=== PATIENT | male | born 1955 | race Caucasian/White ===

== ENCOUNTER 2022-06-02 11:04 | Emergency (ER) | payer MEDICARE, OTHER ==
[~2022-06-02] VITALS: Ht 172.7 cm; Wt 78.9 kg
--- NOTE | 2022-06-02 11:21 | NUR ---
GABBY [id number] From"[facility] [phone] Recent Facial surg now having nose bleed". PLACED ON BED, AWAKE-ALERT NON VERBAL, BREATHING EVEN AND UNLABORED SATURATING AT 98%RA
--- NOTE | 2022-06-02 12:05 | NUR ---
SOLE LEATHER CUTTING MACHINE OPERATOR AT BEDSIDE
[2022-06-02 12:15] LABS: BASOPHILS % (AUTO) 0.1 % (0.0-2.0); EOSINOPHILS % (AUTO) 0.1 % (0.0-6.0); HEMATOCRIT 30 % (39-51); HEMOGLOBIN 10.2 g/dL (13.5-17.5); LYMPHOCYTES # (AUTO) 0.8 K/uL (0.8-4.8); LYMPHOCYTES % (AUTO) 7.9 % (20.0-44.0); MEAN CORPUSCULAR HGB CONC 34 g/dl (31.0-36.0); MEAN CORPUSCULAR VOLUME 87 fL (80-96); MONOCYTES # (AUTO) 1.1 K/uL (0.1-1.30); MONOCYTES % (AUTO) 11.2 % (2.0-12.0); NEUTROPHILS # (AUTO) 7.8 K/uL (1.8-8.9); NEUTROPHILS % (AUTO) 80.7 % (43.0-81.0); PLATELET COUNT (AUTO) 179 K/uL (150-450); RED BLOOD CELL COUNT(AUTO) 3.43 MIL/uL (4.5-6.0); WHITE BLOOD COUNT (AUTO) 9.6 K/uL (4.3-11.0)
--- NOTE | 2022-06-02 12:18 | NUR ---
URINE SAMPLE SENT TO LAB
[2022-06-02 13:43] LABS: BILIRUBIN,URINE NEGATIVE (NEGATIVE); COLOR,URINE YELLOW (YELLOW); LEUKOCYTE ESTERASE ,URINE SMALL (NEGATIVE); NITRITE, URINE NEGATIVE (NEGATIVE); PROTEIN,URINE 30 mg/dl (NEGATIVE); UGLUCOSE NEGATIVE (NEGATIVE); UROBILINOGEN,URINE 0.2 EU/dL (0.2)
[2022-06-02 14:00] LABS: ALANINE AMINOTRANSFERASE 28 U/L (12-78); ALKALINE PHOSPHATASE 91 U/L (46-116); ASPARTATE AMINOTRANSFERASE 39 U/L (15-37); BILIRUBIN,DIRECT 0.2 mg/dL (0.0-0.2); BILIRUBIN,TOTAL 0.5 mg/dL (0.2-1.0); CARBON DIOXIDE 29 mmol/L (21-32); CHLORIDE 100 mmol/L (98-107); CREATININE 1.6 mg/dL (0.6-1.3); GLUCOSE 121 mg/dL (74-106); POTASSIUM 3.9 mmol/L (3.5-5.1); SODIUM SERUM 133 mmol/L (136-145); TOTAL PROTEIN, SERUM 6.7 g/dL (6.4-8.2); UREA NITROGEN, BLOOD 50 mg/dL (7-18)
[2022-06-02 14:30] VITALS: BP 128/70
--- NOTE | 2022-06-02 14:53 | NUR ---
CALLED [facility] AND SPOKE WITH SONAL. ARRANGED S TRANSPORT BACK TO [facility]. ETA IS 45-60 MIN
--- NOTE | 2022-06-02 15:01 | NUR ---
REPORT GIVEN TO JOHNNY MCCORMICK [phone] THAT PATIENT IS DISCHARGE AND GOING BACK TO THEIR FACILITY.
--- NOTE | 2022-06-02 16:12 | NUR ---
IV removed. Catheter intact and site benign. Pressure and 4x4 applied to site. 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
== END 2022-06-02 16:10 ==
LOC: ER 11:06
DX: R04.0 Epistaxis (principal)
CPT/HCPCS: 36415; 71045-TC; 80048-TC; 80076-TC; 81001; 83605-TC; 84484-TC; 85025-TC; 85730-TC; 87040-TC; 87086-TC; 87186-TC

== ENCOUNTER 2022-06-04 02:33 | Inpatient (IN) | payer MEDICARE, OTHER ==
[~2022-06-04] VITALS: Ht 172.7 cm; Wt 69.4 kg
--- NOTE | 2022-06-04 02:50 | NUR ---
TO ER BED 8. [id number] FROM [facility] C/O FEVER 101 AT FACILITY. NO FEVER UPON TRIAGE. AAOX0, RR EVEN AND NONLABORED. GTUBE AND VIDSE CATH NOTED ON ARRIVAL. CONNECTED TO MONITOR. AWAITING MD LIRIANO
[2022-06-04] MEDS ORDERED: CEFTRIAXONE 1GM BAG (ER ONLY) 50 ML IV ONE (02:52)
--- NOTE | 2022-06-04 02:59 | NUR ---
COVID SWAB COLLECTED
--- NOTE | 2022-06-04 02:59 | NUR ---
URINE SAMPLE COLLECTED
--- NOTE | 2022-06-04 02:59 | NUR ---
IV ESTABLISHED, LIZA 20G. BLOOD COLLECTED
[2022-06-04] MEDS ORDERED: CEFTRIAXONE 1 G in IV D5W 50 ML IV ONE (03:00)
--- NOTE | 2022-06-04 03:05 | NUR ---
rad at bedside
[2022-06-04 03:11] LABS: BASOPHILS % (AUTO) 0.1 % (0.0-2.0); EOSINOPHILS % (AUTO) 0.2 % (0.0-6.0); HEMATOCRIT 32 % (39-51); HEMOGLOBIN 10.8 g/dL (13.5-17.5); LYMPHOCYTES # (AUTO) 0.4 K/uL (0.8-4.8); LYMPHOCYTES % (AUTO) 4.3 % (20.0-44.0); MEAN CORPUSCULAR HGB CONC 34 g/dl (31.0-36.0); MEAN CORPUSCULAR VOLUME 88 fL (80-96); NEUTROPHILS # (AUTO) 8.5 K/uL (1.8-8.9); NEUTROPHILS % (AUTO) 85.4 % (43.0-81.0); PLATELET COUNT (AUTO) 180 K/uL (150-450); RED BLOOD CELL COUNT(AUTO) 3.61 MIL/uL (4.5-6.0); WHITE BLOOD COUNT (AUTO) 9.9 K/uL (4.3-11.0)
[2022-06-04 03:19] LABS: BILIRUBIN,URINE NEGATIVE (NEGATIVE); COLOR,URINE YELLOW (YELLOW); LEUKOCYTE ESTERASE ,URINE SMALL (NEGATIVE); NITRITE, URINE NEGATIVE (NEGATIVE); PROTEIN,URINE TRACE mg/dl (NEGATIVE); UGLUCOSE NEGATIVE (NEGATIVE); UROBILINOGEN,URINE 0.2 EU/dL (0.2)
[2022-06-04 03:25] LABS: BACTERIA,URINE Rare /HPF (None Seen); RBC,URINE 0-2 /HPF (0-2); SQUAMOUS EPITHELIAL CELL,UR Few /HPF (None Seen); WBC,URINE 0-2 /HPF (0-3)
[2022-06-04 03:25] LABS: CALCIUM, SERUM 9.2 mg/dL (8.5-10.1); CREATININE 1.6 mg/dL (0.6-1.3); POTASSIUM 4.1 mmol/L (3.5-5.1)
[2022-06-04] MEDS ORDERED: IV NS 0.9% 1,000 ML IV ONE (03:30)
[2022-06-04 03:31] LABS: BILIRUBIN,DIRECT 0.2 mg/dL (0.0-0.2); BILIRUBIN,TOTAL 0.5 mg/dL (0.2-1.0); TOTAL PROTEIN, SERUM 7.5 g/dL (6.4-8.2)
[2022-06-04] MEDS ORDERED: ZOLPIDEM TARTRATE 5 MG TABLET PO PRN (04:30)
[2022-06-04] MEDS ORDERED: ONDANSETRON HCL/PF 4 MG/2 ML VIAL IVP PRN (04:30)
[2022-06-04] MEDS ORDERED: MAGNESIUM HYDROXIDE 30 ML UDC PO PRN (04:30)
[2022-06-04] MEDS ORDERED: Z GUARD REMEDY 4 OZ OINT TP PRN (04:30)
[2022-06-04] MEDS ORDERED: MAG HYDROX/AL HYDROX/SIMETH 30 ML UDC PO PRN (04:30)
[2022-06-04] MEDS ORDERED: PIPERACILLIN /TAZOBACTAM 3.375 G VIAL IV ONE (06:00)
[2022-06-04] MEDS ORDERED: ZOSYN IVPB 3.375 G in IV D5W 50ml IV ONE (06:00)
[2022-06-04] MEDS ORDERED: VANCOMYCIN 1.25 GM in IV D5W 250 ML IV ONE (07:00)
[2022-06-04] MEDS ORDERED: VANCOMYCIN 1 GM VIAL ONE (07:01)
--- NOTE | 2022-06-04 08:30 | NUR ---
REPORT GIVEN FOR COLLIN
[2022-06-04] MEDS ORDERED: ALLA266C2 TP ×2 (08:42)
[2022-06-04] MEDS ORDERED: ONDA-97 GT (08:42)
[2022-06-04] MEDS ORDERED: AMIN30LI2 GT (08:42)
[2022-06-04] MEDS ORDERED: CALA177L16 TP (08:42)
[2022-06-04] MEDS ORDERED: ALEN70TA80 GT (08:42)
[2022-06-04] MEDS ORDERED: MELA5TAB GT (08:42)
[2022-06-04] MEDS ORDERED: CLOR3.755 GT (08:42)
[2022-06-04] MEDS ORDERED: IPRA3AMP23 IH (08:42)
[2022-06-04] MEDS ORDERED: LACT-209 GT (08:42)
[2022-06-04] MEDS ORDERED: CHLO473M5 MM (08:42)
[2022-06-04] MEDS ORDERED: BISA10SU11 RC (08:42)
[2022-06-04] MEDS ORDERED: MINE105O TP (08:42)
[2022-06-04] MEDS ORDERED: QUET25TA GT (08:42)
[2022-06-04] MEDS ORDERED: IBUP-1953 GT (08:42)
[2022-06-04] MEDS ORDERED: LEVO75TA7 GT (08:42)
[2022-06-04] MEDS ORDERED: QUET50TA PO (08:42)
[2022-06-04] MEDS ORDERED: NA P133E RC (08:42)
[2022-06-04] MEDS ORDERED: OMEG-88 GT (08:42)
[2022-06-04] MEDS ORDERED: LACT10SO3 GT (08:42)
[2022-06-04] MEDS ORDERED: ESCI10TA GT (08:42)
[2022-06-04] MEDS ORDERED: CALC500T52 GT (08:42)
[2022-06-04] MEDS ORDERED: HYDR-4076 GT (08:42)
[2022-06-04] MEDS ORDERED: FERR300L GT (08:42)
[2022-06-04] MEDS ORDERED: DICL100G34 TP (08:42)
[2022-06-04] MEDS ORDERED: HYDR28OI2 TP (08:42)
[2022-06-04] MEDS ORDERED: HYDR-3642 GT (08:42)
[2022-06-04] MEDS ORDERED: LORA10TA7 GT (08:42)
[2022-06-04] MEDS ORDERED: DIME532L3 TP (08:42)
[2022-06-04] MEDS ORDERED: MULT-447 GT (08:42)
[2022-06-04] MEDS ORDERED: ATOR40TA GT (08:42)
[2022-06-04] MEDS ORDERED: ERGO500093 GT (08:42)
[2022-06-04] MEDS ORDERED: LORA-259 GT ×2 (08:42)
[2022-06-04] MEDS ORDERED: POLY17PO4 GT (08:42)
[2022-06-04] MEDS ORDERED: GUAI100S11 GT (08:46)
[2022-06-04] MEDS ORDERED: POLY15DR40 EACHEYE (08:46)
[2022-06-04] MEDS ORDERED: TRIA80OI TP (08:46)
[2022-06-04] MEDS ORDERED: ACET-868 GT (08:46)
[2022-06-04] MEDS ORDERED: TRAM50TA2 GT (08:46)
--- NOTE | 2022-06-04 09:18 | NUR ---
PT TRANSFERRED TO [facility] ACLS PROTOCOL. WARM HANDOFF GIVEN TO RN ASSIGNED
--- NOTE | 2022-06-04 09:42 | NUR ---
RN NOTE RECEIVED REPORT FROM ER NURSE. PATIENT IS AWAKE.PATIENT IS NONVERBAL. PATIENT IS FALL RISK. PATIENT IS ON ROOM AIR SATURATING ABOVE 92%.PATIENT HAS IV 20 GAUGE. IV PATENT AND INTACT, FLUSHING WELL.PATIENT IS INTELLECTUAL DISABLE. PATIENT IS NOT ABLE TO MAKE NEEDS KNOWN. PATIENT HAS A GTUBE. VIDES CATHETER.YELLOW COLOR DRAINING TO GRAVITY. ALL SAFETY MEASURES IN PLACE. CALL LIGHT WITHIN REACH. BED LOCKED AT LOWEST POSITION.SIDE RAILS UP X2.
[2022-06-04 09:50] VITALS: BP 103/66
[2022-06-04 12:00] VITALS: BP 118/70
--- NOTE | 2022-06-04 12:00 | NUR ---
RN NOTE PATIENT HAS FEVER IMPLEMENTED COOLING MEASURES
[2022-06-04] MEDS: PIPERACILLIN /TAZOBACTAM 3.375 G in IV D5W 50 ML IV SCH ×3 (12:37→23:56)
[2022-06-04 16:00] VITALS: BP 122/53
[2022-06-04 16:33] LABS: CREATININE, URINE < 13.0 MG/DL (30.0-125.0); URINE SODIUM, RANDOM 8 mmol/l (40-220)
--- NOTE | 2022-06-04 17:00 | NUR ---
RN NOTE UPDATED ALF ABOUT PATIENT CONDITION
--- NOTE | 2022-06-04 19:30 | NUR ---
PT RECEIVED AWAKE IN BED. PATIENT IS INTELLECTUAL DISABLE. PATIENT IS NOT ABLE TO MAKE NEEDS KNOWN. PATIENT HAS IV ON RT HAND 20 GAUGE. IV PATENT AND INTACT. PATIENT HAS A GTUBE. VIDES CATHETER DRAINING YELLOW COLORED URINE. SAFETY MEASURES IN PLACE. BED LOCKED IN LOWEST POSITION, SIDE RAILS UP X2, BED ALARM ON, CALL LIGHT WITHIN REACH. WILL CONTINUE PLAN OF CARE.
--- NOTE | 2022-06-04 19:32 | NUR ---
RN CLOSING NOTE PATIENT IS AWAKE.PATIENT IS NONVERBAL.PT IN BED, RESTING COMFORTABLY. PATIENT IS FALL RISK. PATIENT IS ON ROOM AIR SATURATING ABOVE 92%.PATIENT HAS IV 20 GAUGE. IV PATENT AND INTACT.PATIENT IS INTELLECTUAL DISABLE. PATIENT IS NOT ABLE TO MAKE NEEDS KNOWN. PATIENT HAS A GTUBE. VIDES CATHETER.YELLOW COLOR DRAINING TO GRAVITY. ALL SAFETY MEASURES IN PLACE. CALL LIGHT WITHIN REACH. BED LOCKED AT LOWEST POSITION.BED ALARM ON.SIDE RAILS UP X2.
[2022-06-04] MEDS ORDERED: JEVITY 1.2 CAL 1,000 ML BOTTLE GT PRN (20:00)
[2022-06-04] MEDS ORDERED: diphenhydrAMINE HCL 50 MG/ML VIAL IV STA (21:11)
--- NOTE | 2022-06-04 21:13 | NUR ---
NOTED PATIENT IN DISTRESS, VERY RESTLESSNESS, WITH NOSE AND AROUND EYES REDNESS/SWOLLEN, UNABLE TO KNOW IF THIS IS A ALLERGIC REACTION, PATIENT NOTED WITH SECRETIONS, AND SOUNDS A GURGLING SOUND, ORAL SUCTIONED PROVIDED, WITH NO SUCCESS, RT SUMMONED TO PT ROOM, AND PER RT UNABLE TO SUCTION VIA NASAL, PATIENT PLACE DIN VIA DUE TO RESISTANCE, INFORMED MISTY LONG SPEED BELT SANDER AND GOT AN ORDER FOR BENADRYL 50MG IVP AND SOLU MEDROL 60MG IVP, NG SUCTION PRN, CXR ALL ORDERS NOTED AND CARRIED OUT.
[2022-06-04] MEDS ORDERED: methylPREDNISolone SOD SUCC 125 MG/2ML VIAL IV ONE (21:30)
--- NOTE | 2022-06-04 21:40 | NUR ---
CALLED ICU CHARGE NURSE TO ASSESS PATIENT AND GIVE A SECOND OPINION, SINCE IS A CONCERN FOR ALLERGIC REACTION SINCE PATIENT FACE IS SWOLLEN, ICU CHARGE NURSE AND RT AT BEDSIDE AND THIS TIME, ABLE TO SUCTION VIA NASAL, AND GOT A BIG AMOUNT OF DRY SECRETIONS, PROBABLY STUCK ON PATIENTS NASAL PASSAGE, AFTER THAT O2 INCREASED TO 100% AND PATIENT SEEMS MORE RELIEVED, WILL CONTINUE TO MONITOR CLOSELY, WILL KEEP AMBU BAG AT BEDSIDE.
[2022-06-05] MEDS ORDERED: JEVITY 1.2 CAL 1,000 ML BOTTLE GT PRN ×3 (01:00→17:54)
[2022-06-05] MEDS: IV NS 0.9% 1,000 ML IV PRN ×2 (04:33→21:00)
[2022-06-05] MEDS: PIPERACILLIN /TAZOBACTAM 3.375 G in IV D5W 50 ML IV SCH ×3 (06:34→17:10)
[2022-06-05 06:56] LABS: HEMATOCRIT 31 % (39-51); HEMOGLOBIN 10.6 g/dL (13.5-17.5); LYMPHOCYTES # (AUTO) 0.2 K/uL (0.8-4.8); LYMPHOCYTES % (AUTO) 2.2 % (20.0-44.0); MEAN CORPUSCULAR HGB CONC 34 g/dl (31.0-36.0); MEAN CORPUSCULAR VOLUME 88 fL (80-96); MONOCYTES # (AUTO) 0.1 K/uL (0.1-1.30); MONOCYTES % (AUTO) 1.3 % (2.0-12.0); NEUTROPHILS # (AUTO) 9.1 K/uL (1.8-8.9); NEUTROPHILS % (AUTO) 96.5 % (43.0-81.0); PLATELET COUNT (AUTO) 225 K/uL (150-450); RED BLOOD CELL COUNT(AUTO) 3.59 MIL/uL (4.5-6.0); WHITE BLOOD COUNT (AUTO) 9.5 K/uL (4.3-11.0)
[2022-06-05] MEDS ORDERED: VANCOMYCIN 1.25 GM in IV D5W 250 ML IV SCH (07:00)
--- NOTE | 2022-06-05 07:20 | NUR ---
RN OPENING NOTE PATIENT IS AWAKE.PATIENT IS NONVERBAL.PT IN BED, RESTING COMFORTABLY. PATIENT IS FALL RISK. PATIENT IS ON ROOM AIR SATURATING ABOVE 95-96%.PATIENT HAS IV 20 GAUGE. IV PATENT AND INTACT.PATIENT IS INTELLECTUAL DISABLE. PATIENT IS NOT ABLE TO MAKE NEEDS KNOWN. PATIENT HAS A GTUBE. GTUBE INTACT AND PATENT. RUNNING JEVITY AT 35 ML/HR.VIDES CATHETER YELLOW COLOR DRAINING TO GRAVITY. ALL SAFETY MEASURES IN PLACE. CALL LIGHT WITHIN REACH. BED LOCKED AT LOWEST POSITION.BED ALARM ON.SIDE RAILS UP X2.
--- NOTE | 2022-06-05 07:35 | NUR ---
PT AWAKE IN BED. PATIENT IS INTELLECTUAL DISABLE. PATIENT IS NOT ABLE TO MAKE NEEDS KNOWN. PATIENT HAS IV ON RT HAND 20 GAUGE. IV PATENT AND INTACT. PATIENT HAS A GTUBE INFUSING JEVITY 1.2 AT 35 ML/HR. VIDES CATHETER DRAINING YELLOW COLORED URINE. SAFETY MEASURES MAINTAINED. BED LOCKED IN LOWEST POSITION, SIDE RAILS UP X2, BED ALARM ON, CALL LIGHT WITHIN REACH. WILL ENDORSE TO NEXT NURSE ON DUTY FOR CONTINUITY OF CARE.
[2022-06-05 07:55] LABS: CALCIUM, SERUM 9.6 mg/dL (8.5-10.1); CREATININE 1.7 mg/dL (0.6-1.3); MAGNESIUM 2.7 mg/dL (1.8-2.4); PHOSPHORUS 1.9 mg/dL (2.5-4.9); POTASSIUM 3.8 mmol/L (3.5-5.1)
[2022-06-05 08:00] VITALS: BP 146/80
[2022-06-05] MEDS ORDERED: NEUTRA PHOS 1 POWD.PACKET GT ONE (10:00)
--- NOTE | 2022-06-05 10:00 | NUR ---
RN NOTE NOTIFIED THAT SODIUM IS 150
[2022-06-05 12:00] VITALS: BP_SYST 127; BP_SYST 136; BP_DIAS 56; BP_DIAS 61
[2022-06-05 16:00] VITALS: BP 127/56
--- NOTE | 2022-06-05 18:45 | NUR ---
RN NOTE GLUCERNA NOT LISTED IN EMAR. CALL DIETARY OFFICE TO CLARIFY ORDER SAID THEY WOULD FOLLOWUP. CALLED PHARMACY TO VERIFY FOR TUBE FEEDING AND RATE TO BE SWITCHED TO GLUCERNA PER DRUM ATTENDANT RECOMMENDATION.
[2022-06-05] MEDS ORDERED: Medication Not On Formulary EA (Melatonin 5 MG) GT PRN (19:30)
[2022-06-05] MEDS ORDERED: NA PHOS,M-B/NA PHOS,DI-BA 1 EA ENEMA RC PRN (19:30)
[2022-06-05] MEDS ORDERED: JEVITY 1.2 CAL 1,000 ML BOTTLE GT SCH (19:30)
[2022-06-05] MEDS ORDERED: GLUCERNA 1.2 1,000 ML BOTTLE GT SCH ×2 (19:30)
[2022-06-05] MEDS ORDERED: LORATADINE 10 MG TABLET GT PRN (19:30)
[2022-06-05] MEDS ORDERED: IBUPROFEN 400 MG TABLET GT PRN (19:30)
[2022-06-05] MEDS ORDERED: GUAIFENESIN 300 MG/15 ML UDC GT PRN (19:30)
[2022-06-05] MEDS ORDERED: Medication Not On Formulary EA (Ondansetron Hcl 4 MG) GT PRN (19:30)
[2022-06-05] MEDS ORDERED: LORAZEPAM 1 MG TABLET GT PRN (19:30)
--- NOTE | 2022-06-05 19:30 | NUR ---
PT RECEIVED AWAKE, RESTING COMFORTABLY IN BED. PATIENT IS NONVERBAL. ON ROOM AIR SATURATING AT 95%. PATIENT HAS IV 20 GAUGE ON RT ARM. IV PATENT AND INTACT. PATIENT IS INTELLECTUAL DISABLED AND NOT ABLE TO MAKE NEEDS KNOWN. GTUBE INTACT AND PATENT INFUSING JEVITY 1.2. SAFETY MEASURES IN PLACE. HEAD OF BED SLIGHTLY ELEVATED, BED LOCKED IN LOWEST POSITION, SIDE RAILS UP X2, BED ALARM ON, CALL LIGHT WITHIN REACH. WILL CONTINUE PLAN OF CARE.
--- NOTE | 2022-06-05 19:32 | NUR ---
RN CLOSING NOTE PATIENT IS AWAKE.PATIENT IS NONVERBAL.PT IN BED, RESTING COMFORTABLY. PT HEAD OF BED ELEVATED. PATIENT IS FALL RISK. PATIENT IS ON ROOM AIR SATURATING AT 95%.PATIENT HAS IV 20 GAUGE. IV PATENT AND INTACT.PATIENT IS INTELLECTUAL DISABLE. PATIENT IS NOT ABLE TO MAKE NEEDS KNOWN. PATIENT HAS A GTUBE. GTUBE INTACT AND PATENT. ENDORSED TO HAIRSPRING INSPECTOR RN ABOUT TUBE FEEDING/ VIDES CATHETER.YELLOW COLOR DRAINING TO GRAVITY. ALL SAFETY MEASURES IN PLACE. CALL LIGHT WITHIN REACH. BED LOCKED AT LOWEST POSITION.BED ALARM ON.SIDE RAILS UP X2.
[2022-06-05] MEDS ORDERED: LACTULOSE 10 G/15 ML UDC (PYXIS) GT PRN (20:00)
--- NOTE | 2022-06-05 20:30 | NUR ---
PT IV ACCESS ON RT FOREARM INFILTRATED WITH BLISTERS NOTED. IV INFUSION STOPPED. IV ACCESS REMOVED. RT ARM ELEVATED. CHARGE NURSE INFORMED AND SHE INSERTED IV ACCESS ON LT HAND. INFORMED AND ORDERED TO STOP VANCO AND ZOSYN. ORDERED WOUND CONSULT, BENADRYL AND HYDROCORTISONE IV. WILL CONTINUE TO MONITOR. Addendum: 06/05/22 at 2336 by DIANA DANIELLE RN WRONG TIME
[2022-06-05 21:00] VITALS: BP 159/90
[2022-06-05] MEDS ORDERED: diphenhydrAMINE HCL 50 MG/ML VIAL IV ONE (22:30)
[2022-06-05] MEDS ORDERED: HYDROCORTISONE SOD SUCCINATE 100 MG/2 ML VIAL IV ONE (22:30)
--- NOTE | 2022-06-05 22:30 | NUR ---
T IV ACCESS ON RT FOREARM INFILTRATED WITH BLISTERS NOTED. IV INFUSION STOPPED. IV ACCESS REMOVED. RT ARM ELEVATED. CHARGE NURSE INFORMED AND SHE INSERTED IV ACCESS ON LT HAND. INFORMED AND ORDERED TO STOP VANCO AND ZOSYN. ORDERED WOUND CONSULT, BENADRYL AND HYDROCORTISONE IV. WILL CONTINUE TO MONITOR.
[2022-06-05] MEDS: QUETIAPINE FUMARATE 25 MG TABLET GT SCH (22:49)
[2022-06-06 05:00] VITALS: BP 152/84
[2022-06-06 06:29] LABS: CALCIUM, SERUM 9.1 mg/dL (8.5-10.1); CREATININE 1.8 mg/dL (0.6-1.3); POTASSIUM 4.1 mmol/L (3.5-5.1)
--- NOTE | 2022-06-06 07:20 | NUR ---
RN OPENING NOTE PATIENT IS AWAKE.PATIENT IS NONVERBAL.PT IN BED, RESTING COMFORTABLY IN BED. PATIENT IS FALL RISK. PATIENT IS ON ROOM AIR SATURATING ABOVE 95-96%.PATIENT HAS IV 20 GAUGE. IV PATENT AND INTACT.PATIENT IS INTELLECTUAL DISABLE. PATIENT IS NOT ABLE TO MAKE NEEDS KNOWN. PATIENT HAS A GTUBE. GTUBE INTACT AND PATENT. RUNNING GLUCERNA AT 80 ML/HR.VIDES CATHETER YELLOW COLOR DRAINING TO GRAVITY. PT HAS BILATERAL SOFT WRIST RESTRAINTS. RELEASED CIRCULATION. NO PROBLEMS WITH CIRCULATION. PT HAS BLISTERS ON RIGHT FOREARM AND HAND.ALL SAFETY MEASURES IN PLACE. CALL LIGHT WITHIN REACH. BED LOCKED AT LOWEST POSITION.BED ALARM ON.SIDE RAILS UP X2.
--- NOTE | 2022-06-06 07:47 | NUR ---
PT AWAKE, RESTING COMFORTABLY IN BED. PATIENT IS NONVERBAL. ON ROOM AIR SATURATING AT 95%. PATIENT HAS IV G22 ON LT HAND. IV PATENT AND INTACT. PATIENT IS INTELLECTUAL DISABLED AND NOT ABLE TO MAKE NEEDS KNOWN. GTUBE INTACT AND PATENT INFUSING GLUCERNA 1.2 AT 80 ML PER HR. SAFETY MEASURES MAINTAINED. HEAD OF BED SLIGHTLY ELEVATED, BED LOCKED IN LOWEST POSITION, SIDE RAILS UP X2, BED ALARM ON, CALL LIGHT WITHIN REACH. WILL ENDORSE TO NEXT NURSE ON DUTY FOR CONTINUITY OF CARE.
[2022-06-06] MEDS: IV 1/2NS 1000 ML 1,000 ML IV SCH ×2 (07:48→17:10)
[2022-06-06 08:00] VITALS: BP 125/54
--- NOTE | 2022-06-06 08:03 | NUR ---
WOUND CARE CONSULT: PT SEEN FOR BLISTERS TO RT UPPER EXTREMITY WITH EDEMA. SOME BLISTERS ARE OPEN. RECOMMEND SURGICAL CONSULT, ELEVATE ARM ON PILLOW AND USE XEROFORM DRESSING. DISCUSSED SKIN PROTECTION AND WOUND CARE WITH NURSING STAFF. DR ABEBA GE CALLED FOR SURGICAL CONSULT. IN AGREEMENT WITH PLAN OF CARE.
--- NOTE | 2022-06-06 08:30 | NUR ---
RN NOTE WOUND CARE NURSE SAW PATIENT AND SAW BLISTERS. RECOMMENDED CLEANSE WITH NORMAL SALINE. COVER WITH XEROFROM, APPLY ABODOMINAL DRESSING AND COVER WITH BURN NET. NOTED ORDERS AND CARRIED OUT
[2022-06-06] MEDS ORDERED: hydrOXYzine 10 MG TABLET GT SCH (09:00)
[2022-06-06] MEDS ORDERED: CLORAZEPATE DIPOTASSIUM 3.75 MG TABLET GT SCH (09:00)
[2022-06-06] MEDS: ESCITALOPRAM OXALATE (10 MG) 10 MG TABLET GT SCH (09:42)
[2022-06-06] MEDS: LEVOTHYROXINE SODIUM 75 MCG TABLET GT SCH (09:42)
[2022-06-06] MEDS: CHLORHEXIDINE GLUCONATE 15 ML UDC MM SCH ×4 (09:42→17:10)
[2022-06-06] MEDS: MULTIVIT W/MINERALS 1 TAB TABLET GT SCH (09:42)
[2022-06-06] MEDS: FERROUS SULFATE UDC 300 MG/5 ML UDC GT SCH ×2 (09:42→10:17)
[2022-06-06] MEDS: GLUCERNA 1.2 1,000 ML BOTTLE GT PRN (09:54)
--- NOTE | 2022-06-06 10:00 | NUR ---
RN NOTE NOTIFIED ABOUT BLISTERS ON RIGHT HAND. NOTIFIED THAT PATIENT MIGHT BE ALLERGIC TO ZOSYN OR VANCOMYCIN. MD AWARE. NO ORDERS CURRENTLY GIVEN
[2022-06-06] MEDS: QUETIAPINE FUMARATE 25 MG TABLET PO SCH (10:49)
[2022-06-06 12:00] VITALS: BP 152/84
[2022-06-06 13:00] VITALS: BP 152/84
--- NOTE | 2022-06-06 17:10 | NUR ---
rn note noted patient with swollen iv site on left hand. stopped iv fluids. notified charge nurse and notified if can discontinue iv fluids due to tube feeding running at 80ml/hr and 1/2 ns running at 100 ml/hr. waiting for response Addendum: 06/06/22 at 1716 by RAMSEY TAVAREZ RN dr. womack ok to discontinue iv fluids and ordered to flush with gtube water flush 250 cc q 8 hours
--- NOTE | 2022-06-06 17:30 | NUR ---
rn note patient has swollen iv site. notified nursing supervisor dry cleaning if midline insertion can be done. waiting for midline insertion at 11 pm
--- NOTE | 2022-06-06 19:48 | NUR ---
RN NOTE SPOKE WITH MACHELLE MOLINA. SAID PT IS EDEMATOUS, NOTHING CAN BE DONE AND TO KEEP ARMS ELEVATED.ENDORSED TO ALL TERRAIN VEHICLE TECHNICIAN RN AND CHARGE NURSE
--- NOTE | 2022-06-06 19:49 | NUR ---
RN CLOSING NOTE PT AWAKE.PATIENT IS NONVERBAL.PT IN BED, RESTING COMFORTABLY IN BED. PATIENT IS FALL RISK.HEAD OF BED ELEVATED.PT HAS LEFT HAND IV GAUGE. IV SITE SWOLLEN. WAITING FOR MIDLINE NURSE TO INSERT NEW SITE AT 11 PM. ENDORSED TO HOTEL CASINO FLOORPERSON RN. PATIENT IS INTELLECTUAL DISABLE, NOT ABLE TO MAKE NEEDS KNOWN. PATIENT HAS GTUBE. GTUBE INTACT AND PATENT. RUNNING GLUCERNA AT 80 ML/HR.VIDES CATHETER YELLOW COLOR DRAINING TO GRAVITY. PT HAS BILATERAL SOFT WRIST RESTRAINTS. RELEASED CIRCULATION. NO PROBLEMS WITH CIRCULATION. PT HAS BLISTERS ON RIGHT FOREARM AND HAND.KEPT ARM ELEVATED AT ALL TIMES. BOTH HANDS SWOLLEN.NO FLUIDS RUNNING. PT HAS EDEMATOUS. ALL SAFETY MEASURES IN PLACE. CALL LIGHT WITHIN REACH. BED LOCKED AT LOWEST POSITION.BED ALARM ON.SIDE RAILS UP X2. ENDORSED TO HOTEL CASINO FLOORPERSON RN
[2022-06-06 20:00] VITALS: BP 142/75
[2022-06-06] MEDS: QUETIAPINE FUMARATE 25 MG TABLET GT SCH (21:03)
--- NOTE | 2022-06-06 22:42 | NUR ---
SERVICE ARCHITECT OPENING NOTE PT RECEIVED IN BED, AWAKE; NON-VERBAL, BUT MAKES GRUNTING NOISES. PT ON RA WITH CURRENT O2SAT OF 98%; NO S/S OF RESP DISTRESS, NO SOB OR COUGH, NON-LABORED AND EQUAL BREATHING; APPEARS COMFORTABLE OVERALL. PT ATTACHED TO EXTERNAL MONITOR, SR WITH HR OF 70. VIDES INTACT AND PATENT, DRAINING CLEAR AND YELLOW URINE. IV ACCESS ON LEFT HAND INFILTRATED, AWAITING MIDLINE INSERTION AT 2300. GTD C/D/I WITH GLUCERNA RUNNING AT 80 ML/HR. BED IN LOWEST POSITION, CALL LIGHT WITHIN REACH, SIDE RAILS UP X3. WILL CONTINUE TO MONITOR THROUGHOUT THE NIGHT.
[2022-06-07] VITALS: BP 141/77
[2022-06-07] MEDS: GLUCERNA 1.2 1,000 ML BOTTLE GT PRN ×2 (00:32→22:50)
[2022-06-07 04:00] VITALS: BP 113/66
[2022-06-07 06:15] LABS: BASOPHILS % (AUTO) 0.1 % (0.0-2.0); EOSINOPHILS % (AUTO) 0.1 % (0.0-6.0); HEMATOCRIT 27 % (39-51); HEMOGLOBIN 9.2 g/dL (13.5-17.5); LYMPHOCYTES # (AUTO) 0.7 K/uL (0.8-4.8); LYMPHOCYTES % (AUTO) 9.3 % (20.0-44.0); MEAN CORPUSCULAR HGB CONC 34 g/dl (31.0-36.0); MEAN CORPUSCULAR VOLUME 88 fL (80-96); MONOCYTES # (AUTO) 0.6 K/uL (0.1-1.30); MONOCYTES % (AUTO) 8.2 % (2.0-12.0); NEUTROPHILS # (AUTO) 5.8 K/uL (1.8-8.9); NEUTROPHILS % (AUTO) 82.3 % (43.0-81.0); PLATELET COUNT (AUTO) 228 K/uL (150-450)
[2022-06-07 06:37] LABS: CALCIUM, SERUM 9.8 mg/dL (8.5-10.1); CREATININE 1.6 mg/dL (0.6-1.3); MAGNESIUM 2.7 mg/dL (1.8-2.4); PHOSPHORUS 3.5 mg/dL (2.5-4.9)
--- NOTE | 2022-06-07 07:00 | NUR ---
RN NOTE RECEIVED PATIENT IN BED RESTING CONFUSED,RESTLESS,NONVERBAL,MAKE GRUNTING NOISES,ON ROOM AIR O2:96%,ON G-TUBE GLUCERNA 80CC/HR CHECK PLACEMENT IN PLACE NO RESIDUAL NOTED, IV SITE IS ON RIGHT UPPER ARM AND RIGHT FOREARM INTACT PATENT,VIDES IN PLACE URINE DRAINING YELLOW BY GRAVITY,SOFT BILATERAL WRIST RESTRAIN IN PLACE WILL CHECK EVERY 15 MINS FOR SKIN BREAKDOWN, AND CIRCULATION,SAFETY MEASURE IMPLEMNT BED IN LOW POSITION AND LOCKED,HEAD OF THE BED ELEVATED,CONTINUE TO MONITOR.
--- NOTE | 2022-06-07 07:06 | NUR ---
THIRD SHIFT LIEUTENANT CLOSING NOTE PT REMAINS IN BED, AWAKE, RESTLESS, A&O X0, NOTED TO MAKE GRUNTING NOISES, NON-VERBAL. CONTINUES TO BE ON RA WITH O2SAT RANGING FROM 96%-98%; NO S/S OF RESP DISTRESS, NO SOB OR COUGH, NON-LABORED AND EQUAL BREATHING. ATTACHED TO EXTERNAL MONITOR, SR WITH HR RANGING FROM 70-73. VIDES INTACT AND PATENT, DRAINING CLOUDY AND YELLOW URINE. DRESSING ON RIGHT ARM CLEANSED AND CHANGED. GLUCERNA RUNNING AT 80 ML/HR; FLUSHED GT WITH 240 ML OF WATER Q8H. SURYA MIDLINE 18G INTACT AND PATENT. ALL DUE MEDS ADMINISTERED DURING THE NIGHT. BED IN LOWEST POSITION, CALL LIGHT WITHIN REACH, SIDE RAILS UP X3. WILL ENDORSE TO DAYSHIFT NURSE TO CONTINUE CARE.
[2022-06-07 07:38] LABS: POTASSIUM 4.4 mmol/L (3.5-5.1)
[2022-06-07 08:00] VITALS: BP 149/50
[2022-06-07] MEDS: LEVOTHYROXINE SODIUM 75 MCG TABLET GT SCH (08:12)
[2022-06-07] MEDS: ESCITALOPRAM OXALATE (10 MG) 10 MG TABLET GT SCH (08:12)
[2022-06-07] MEDS: QUETIAPINE FUMARATE 25 MG TABLET PO SCH (08:12)
[2022-06-07] MEDS: CHLORHEXIDINE GLUCONATE 15 ML UDC MM SCH ×3 (08:12→16:47)
[2022-06-07] MEDS: FERROUS SULFATE UDC 300 MG/5 ML UDC GT SCH (08:12)
[2022-06-07] MEDS: MULTIVIT W/MINERALS 1 TAB TABLET GT SCH (08:12)
--- NOTE | 2022-06-07 08:56 | NUR ---
RN NOTE PATIENT VOMITED DEEP SUCTIONING DONE ZOFRAN PRN GIVEN STOP FEEDING,ELEVATED HEAD OF THE BED 90 DEGREE,CONTINUE TO MONITOR.
--- NOTE | 2022-06-07 10:00 | NUR ---
RN NOTE START G-TUBE FEEDING WITH LOW RATE 20CC/HR GRADUALLY WILL INCREASE TO REACH THE GOAL 60CC/HR CONTINUE TO MONITOR.
[2022-06-07] MEDS: IV D5W 1,000 ML IV SCH ×2 (11:50→22:04)
[2022-06-07 12:00] VITALS: BP 132/71
[2022-06-07 16:00] VITALS: BP 150/71
--- NOTE | 2022-06-07 18:32 | NUR ---
RN NOTE PATIENT REMAINS CONFUSED NON VERBAL ON ROOM AIR O2:92% NO SOB NOT ACUTE DISTRESS NOTED,IV SITE IS ON LEFT UPPER ARM MIDLINE INTACT PATENT ON IV HYDRATION D5W 100CC/HR,ON G-TUBE FEEDING GLUCERNA AT 40CC/HR,VIDES IN PLACE,ALL DUE MEDS GIVEN MD ORDERED,KEPT CLEAN AND DRY ALL THE TIME,TURNED AND REPOSITIONED EVERY 2 HOURS,SOFT BILATERAL WRIST RESTRAIN IN PLACE,CHECKED EVERY 15 MINS,RANG OF MOTION DONE,KEPT HEAD OF THE BED ELEVATED ALL THE TIME,WILL ENDORSE NEXT COMING SHIFT FOR CONTINUATION OF CARE.
[2022-06-07 20:00] VITALS: BP 141/75
--- NOTE | 2022-06-07 21:55 | NUR ---
LIVESTOCK AGENT OPENING NOTE PT RECEIVED IN BED, AWAKE; NON-VERBAL, MAKES GRUNTING/MUMBLING NOISES. PT ON RA WITH CURRENT O2SAT OF 97%; NO S/S OF RESP DISTRESS, NO SOB OR COUGH, NON-LABORED AND EQUAL BREATHING; APPEARS COMFORTABLE OVERALL. PT ATTACHED TO EXTERNAL MONITOR, SR WITH HR OF 67. VIDES INTACT AND PATENT, DRAINING CLEAR AND YELLOW URINE. SURYA MIDLINE 18G INTACT AND PATENT WITH D5W INFUSING AT 100 ML/HR. GTD C/D/I WITH GLUCERNA RUNNING AT 80 ML/HR. PT NOTED TO HAVE BILATERAL SOFT WRIST RESTRAINTS; NO SIGNS OF IMPAIRED SKIN OR CIRCULATION; WILL PROVIDE PT WITH RELEASE OF RESTRAINTS AND HYGIENE. BED IN LOWEST POSITION, CALL LIGHT WITHIN REACH, SIDE RAILS UP X3. WILL CONTINUE TO MONITOR THROUGHOUT THE NIGHT.
[2022-06-07] MEDS: QUETIAPINE FUMARATE 25 MG TABLET GT SCH (22:05)
[2022-06-07] MEDS: ACETAMINOPHEN 325 MG TABLET PO PRN (22:08)
--- NOTE | 2022-06-07 22:08 | NUR ---
RN NOTE PT NOTED TO BE CRYING AND APPEARS TO BE IN PAIN. PT ADMINISTERED TYLENOL 650 MG.
[2022-06-08] VITALS: BP 143/62
[2022-06-08 04:00] VITALS: BP 146/66
--- NOTE | 2022-06-08 06:52 | NUR ---
ACCOUNTS RECEIVABLE ASSOCIATE CLOSING NOTE PT REMAINS IN BED, AWAKE, RESTLESS, A&O X0, MAKE GRUNTING/MUMBLING NOISES, NON-VERBAL. CONTINUES TO BE ON RA WITH O2SAT RANGING FROM 93%-97%; NO S/S OF RESP DISTRESS, NO SOB OR COUGH, NON-LABORED AND EQUAL BREATHING. ATTACHED TO EXTERNAL MONITOR, SR WITH HR RANGING FROM 63-67. VIDES INTACT AND PATENT, DRAINING CLOUDY AND YELLOW URINE. DRESSING ON RIGHT ARM CLEANSED AND CHANGED. GLUCERNA RUNNING AT 80 ML/HR; FLUSHED GT WITH 250 ML OF WATER Q8H. SURYA MIDLINE 18G INTACT AND PATENT. ALL DUE MEDS ADMINISTERED DURING THE NIGHT. PICTURES TAKEN OF WOUNDS AND PLACED IN CHART. DRESSING ON RIGHT ARM CHANGED. ALL DUE MEDS ADMINISTERED DURING THE NIGHT. BED IN LOWEST POSITION, CALL LIGHT WITHIN REACH, SIDE RAILS UP X3. WILL ENDORSE TO DAYSHIFT NURSE TO CONTINUE CARE.
[2022-06-08 07:06] LABS: BASOPHILS % (AUTO) 0.1 % (0.0-2.0); EOSINOPHILS % (AUTO) 0.6 % (0.0-6.0); HEMATOCRIT 27 % (39-51); HEMOGLOBIN 9.2 g/dL (13.5-17.5); LYMPHOCYTES # (AUTO) 0.7 K/uL (0.8-4.8); LYMPHOCYTES % (AUTO) 10.7 % (20.0-44.0); MEAN CORPUSCULAR HGB CONC 34 g/dl (31.0-36.0); MEAN CORPUSCULAR VOLUME 89 fL (80-96); MONOCYTES # (AUTO) 0.7 K/uL (0.1-1.30); NEUTROPHILS # (AUTO) 4.8 K/uL (1.8-8.9); NEUTROPHILS % (AUTO) 77.6 % (43.0-81.0); PLATELET COUNT (AUTO) 239 K/uL (150-450); WHITE BLOOD COUNT (AUTO) 6.2 K/uL (4.3-11.0)
[2022-06-08] MEDS: IV D5W 1,000 ML IV SCH ×2 (07:34→19:16)
--- NOTE | 2022-06-08 07:52 | NUR ---
MANAGER CARD OPENING NOTE PT RECEIVED IN BED, AWAKE; NON-VERBAL, ALERT AND RESPONSIVE. PATIENT NOTED ON RA, NO S/S OF RESP DISTRESS, NO SOB OR COUGH, NON-LABORED AND EQUAL BREATHING. PT ATTACHED TO EXTERNAL MONITOR, SR WITH HR OF 63/ VIDES INTACT AND PATENT, DRAINING CLEAR AND YELLOW URINE. IV ACCESS ON SURYA MIDLINE NOTED PATENT AND INTACT WITH D5W RUNNING AT 100ML/HR, TOLERATING WELL. GTD C/D/I WITH GLUCERNA RUNNING AT 80 ML/HR, TOLERATING WELL, NO N/V/ NOTED. BED IN LOWEST POSITION, CALL LIGHT WITHIN REACH, SIDE RAILS UP X3. BILATERAL SOFT RESTRAINT STILL NOTED, WILL ASSESS CIRCULATION AND SKIN. WILL CONTINUE PLAN OF CARE.
[2022-06-08 08:00] VITALS: BP 107/65
[2022-06-08 08:10] LABS: CALCIUM, SERUM 9.4 mg/dL (8.5-10.1); CREATININE 1.6 mg/dL (0.6-1.3); MAGNESIUM 2.5 mg/dL (1.8-2.4); POTASSIUM 4.1 mmol/L (3.5-5.1)
[2022-06-08] MEDS: QUETIAPINE FUMARATE 25 MG TABLET PO SCH (08:13)
[2022-06-08] MEDS: MULTIVIT W/MINERALS 1 TAB TABLET GT SCH (08:13)
[2022-06-08] MEDS: LEVOTHYROXINE SODIUM 75 MCG TABLET GT SCH (08:13)
[2022-06-08] MEDS: CHLORHEXIDINE GLUCONATE 15 ML UDC MM SCH ×3 (08:13→16:57)
[2022-06-08] MEDS: ESCITALOPRAM OXALATE (10 MG) 10 MG TABLET GT SCH (08:13)
[2022-06-08] MEDS: FERROUS SULFATE UDC 300 MG/5 ML UDC GT SCH (08:13)
--- NOTE | 2022-06-08 08:30 | NUR ---
RN OPENING NOTE RECEIVED REPORT FROM RN. PATIENT IS AWAKE.PATIENT IS NONVERBAL.PT IN BED, RESTING COMFORTABLY IN BED. PATIENT IS FALL RISK. PATIENT IS ON ROOM AIR SATURATING ABOVE 95%.PT HAS SURYA MIDLINE. IV PATENT AND INTACT.PATIENT IS INTELLECTUAL DISABLE. PATIENT IS NOT ABLE TO MAKE NEEDS KNOWN. PATIENT HAS A GTUBE. GTUBE INTACT AND PATENT. RUNNING GLUCERNA AT 80 ML/HR.VIDES CATHETER YELLOW COLOR DRAINING TO GRAVITY. PT HAS BILATERAL SOFT WRIST RESTRAINTS. RELEASED CIRCULATION. NO PROBLEMS WITH CIRCULATION. PT HAS BLISTERS ON RIGHT FOREARM WITH OPEN REDNESS FROM BLISTERS.ALL SAFETY MEASURES IN PLACE. CALL LIGHT WITHIN REACH. BED LOCKED AT LOWEST POSITION.BED ALARM ON.SIDE RAILS UP X2.
--- NOTE | 2022-06-08 09:00 | NUR ---
relay telegrapher note spoke with dr womack notified that na 156,no new order at this time cont flush g tube and on ivf
[2022-06-08] MEDS: GLUCERNA 1.2 1,000 ML BOTTLE GT PRN (10:21)
[2022-06-08 12:00] VITALS: BP 131/72
--- NOTE | 2022-06-08 13:42 | NUR ---
RN NOTE SAID WOUND CARE TO FOLLOWUP.NO NEW ORDERS GIVEN
--- NOTE | 2022-06-08 13:43 | NUR ---
rn note spoke with pat skin doctor about blisters on right hand, continue same treatment, no new orders given
--- NOTE | 2022-06-08 13:43 | NUR ---
rn note notified about blisters on right hand getting worse. will followup
--- NOTE | 2022-06-08 14:00 | NUR ---
rn note spoke with ID doctor dr.aaron keys said blisters doesnt look infected and followup with wound care team and plastics
[2022-06-08 16:00] VITALS: BP 133/64
--- NOTE | 2022-06-08 16:28 | NUR ---
pt has restraints, witnessed pt scratching blisters redness seen.secured restraints
--- NOTE | 2022-06-08 19:10 | NUR ---
RN NOTE Patient in bed, confused, in no acute distress, saturation at 100% on room air, SR on the monitor, HR is 78. SURYA midline patent and flushing with D5W infusing at 100 ml/hr. Gtube in place, positive placement noted, no residual with Glucerna at 80 ml/hr. Perez catheter draining to a clear, yellow output. B soft wrist restraints in place, skin and circulation checked and are WNL. Safety measures implemented, will cont to monitor and reassess.
[2022-06-08 20:00] VITALS: BP 145/83
--- NOTE | 2022-06-08 20:06 | NUR ---
RN CLOSING NOTE PT AWAKE, NONVERBAL.PT RESTING COMFORTABLY IN BED. PATIENT IS FALL RISK. PATIENT IS ON ROOM AIR SATURATING AT 97%.PT HAS SURYA MIDLINE. IV PATENT AND INTACT.PATIENT IS INTELLECTUAL DISABLE. PATIENT IS NOT ABLE TO MAKE NEEDS KNOWN. PT GTUBE. GTUBE INTACT AND PATENT. RUNNING GLUCERNA AT 80 ML/HR.VIDES CATHETER YELLOW COLOR DRAINING TO GRAVITY. PT HAS BILATERAL SOFT WRIST RESTRAINTS. RELEASED CIRCULATION. NO PROBLEMS WITH CIRCULATION. PT HAS BLISTERS ON RIGHT FOREARM WITH OPEN REDNESS FROM BLISTERS.COVERED OPEN BLISTERS WITH XEROFORM AND ABDOMINAL PAD COVERED WITH BURN NET. ALL SAFETY MEASURES IN PLACE. CALL LIGHT WITHIN REACH. BED LOCKED AT LOWEST POSITION.BED ALARM ON.SIDE RAILS UP X2.
[2022-06-08] MEDS: QUETIAPINE FUMARATE 25 MG TABLET GT SCH (21:48)
[2022-06-09] VITALS (49 sets, daily range): BP systolic 76–258; BP diastolic 46–150
[2022-06-09] MEDS: IV D5W 1,000 ML IV SCH ×3 (04:19→23:30)
[2022-06-09] MEDS: GLUCERNA 1.2 1,000 ML BOTTLE GT PRN (04:26)
[2022-06-09] MEDS: hydrALAZINE HCL 25 MG TABLET GT PRN (05:08)
[2022-06-09] MEDS: TRAMADOL HCL 50 MG TABLET GT PRN (05:35)
[2022-06-09] MEDS ORDERED: METOPROLOL TARTRATE INJ 5 MG/5 ML AMPUL IVP ONE (06:00)
[2022-06-09] MEDS ORDERED: FUROSEMIDE 40 MG/4 ML VIAL IV ONE (06:00)
[2022-06-09] MEDS: ACETAMINOPHEN 325 MG TABLET PO PRN (06:19)
[2022-06-09] MEDS ORDERED: LORAZEPAM INJ 2 MG/ML VIAL IV ONE ×5 (06:30→07:00)
[2022-06-09] MEDS ORDERED: LEVETIRACETAM (500MG) 2,000 MG in IV NS 0.9% 100 ML IV ONE (07:00)
[2022-06-09] MEDS ORDERED: LEVETIRACETAM (500MG) 500 MG in IV NS 0.9% 100 ML IV SCH (07:00)
--- NOTE | 2022-06-09 07:00 | NUR ---
teletypesetter operator notes. ativan 2mg iv not given d/t duplicate order.
[2022-06-09 07:10] LABS: BASOPHILS # (AUTO) 0.1 K/uL (0.0-0.2); BASOPHILS % (AUTO) 0.5 % (0.0-2.0); EOSINOPHILS % (AUTO) 0.6 % (0.0-6.0); HEMATOCRIT 36 % (39-51); HEMOGLOBIN 11.2 g/dL (13.5-17.5); LYMPHOCYTES # (AUTO) 1.9 K/uL (0.8-4.8); LYMPHOCYTES % (AUTO) 9.2 % (20.0-44.0); MEAN CORPUSCULAR HGB CONC 32 g/dl (31.0-36.0); MEAN CORPUSCULAR VOLUME 91 fL (80-96); MONOCYTES # (AUTO) 1.3 K/uL (0.1-1.30); MONOCYTES % (AUTO) 6.4 % (2.0-12.0); NEUTROPHILS # (AUTO) 16.9 K/uL (1.8-8.9); NEUTROPHILS % (AUTO) 83.3 % (43.0-81.0); PLATELET COUNT (AUTO) 423 K/uL (150-450); RED BLOOD CELL COUNT(AUTO) 3.93 MIL/uL (4.5-6.0); WHITE BLOOD COUNT (AUTO) 20.3 K/uL (4.3-11.0)
[2022-06-09 07:14] LABS: CALCIUM, SERUM 9.6 mg/dL (8.5-10.1); CREATININE 1.8 mg/dL (0.6-1.3); MAGNESIUM 2.7 mg/dL (1.8-2.4); PHOSPHORUS 6.2 mg/dL (2.5-4.9); POTASSIUM 5.4 mmol/L (3.5-5.1)
--- NOTE | 2022-06-09 07:15 | NUR ---
RN NOTES 0543 HR sustaining 140's; BP 174/82 O2 sat 92% on 10L simple mask low 80's on RA. Patient noted jerking like seizure but no history of seizure although w/ hx of spastic paraplegia. Medicated w/ ativan; hydralazine; ultram but all via GT. Still tachypneic and tachycardic;Suctioned secretions; RT tried deep suctioning but unable to do nasally due to resistance. On IVF @100ml/hr. GT feeding turned off for now. Notified Cliff Schultz CASTING AGENT of the above. 0549 IVF stopped per order for possible overload. Lasix 40mg IVP given x1 0619 warm to touch; still with continues jerking; HR still 160-170's. temp taken as 100.7 per axilla; tylenol given 0625 SVT on monitor; still with jerking movement BP 258/150. Veronika on the phone while everything is being done for constant update. 0639 2mg ativan given as ordered; no response to medication, another 2mg given at 0642. Veronika will contact neurologist [phone] Still no change; TEST ENGINE OPERATOR called ER MD came with INSOLE BUFFER and RT; ICU supervisor in charge also came with mineral wool insulation supervisor. Ativan 4mg given as ordered by Dr. Lynn at 0657; Dr. Lynn at bedside and Veronika on the phone discussing patient's case. [facility] ordered STAT; called CT but unable to accommodate at this time since patient is still spastic/jerking and unable to keep still. 0655 temp rechecked as 101.9 BP 143/30 HR 174 o2 sat 96% on NRBM 15L 0700 Patient transferred to ICU . Report given to Shazia HERRERA at bedside 0815 Spoke to Elton from [employer] to get responsible democrat's contact number [phone] called Edita, sister but no response; left a message about the transfer and left ICU's phone number
--- NOTE | 2022-06-09 07:25 | NUR ---
ICU/RN PT TRANSFERRED FROM [facility], POST PRECISION ASSEMBLER BENCH DUE TO SEIZURES.PT HAS CONTINUES SEIZURES.ATIVAN IV WAS GIVEN .PLACED ON NRM MASK AT 15L ,SAT O2-94%,HR 160-170 BPM.LEFT UPPER ARM MID LINE. F/C DRAINING WITH CLOUDY YELLOW URINE.PT IS CONTRACTED.G-TUBE CLAMPED.RIGHT ARM WOUND COVERED WITH DRESSING.
[2022-06-09] MEDS: LEVETIRACETAM (500MG) 1,000 MG in IV NS 0.9% 100 ML IV SCH ×3 (07:35→21:57)
[2022-06-09] MEDS: QUETIAPINE FUMARATE 25 MG TABLET PO SCH (08:53)
[2022-06-09] MEDS: MULTIVIT W/MINERALS 1 TAB TABLET GT SCH (08:53)
[2022-06-09] MEDS: FERROUS SULFATE UDC 300 MG/5 ML UDC GT SCH (08:53)
[2022-06-09] MEDS: LEVOTHYROXINE SODIUM 75 MCG TABLET GT SCH (08:53)
[2022-06-09] MEDS: ESCITALOPRAM OXALATE (10 MG) 10 MG TABLET GT SCH (08:53)
[2022-06-09] MEDS: CHLORHEXIDINE GLUCONATE 15 ML UDC MM SCH ×3 (08:53→16:13)
--- NOTE | 2022-06-09 10:00 | NUR ---
ICU/RN PT IS INTUBATED ORDERED.DIPRIVAN STARTED.
[2022-06-09] MEDS: PROPOFOL 100 ML IV PRN ×3 (10:27→19:32)
[2022-06-09] MEDS: PIPERACILLIN /TAZOBACTAM 3.375 G in IV D5W 100 ML IV SCH ×2 (10:54→18:09)
[2022-06-09] MEDS ORDERED: ROCURONIUM BROMIDE 50 MG/5 ML IV ONE (11:30)
[2022-06-09] MEDS ORDERED: ETOMIDATE 2 MG/ML VIAL IV ONE (11:30)
--- NOTE | 2022-06-09 11:30 | NUR ---
ICU/RN CT OF THE HEAD DONE ORDERED.
[2022-06-09] MEDS ORDERED: IV NS 0.9% 500 ML IV ONE (14:00)
[2022-06-09 14:01] LABS: ABG BASE EXCESS 0.7 mmol/L; ABG OXYGEN SATURATION 98.9 % (92.0-98.5); ABG PH 7.576 (7.350-7.450); ABG PO2 237.9 mmHg (75.0-100.0); AaDO2 451.1 mmHg; COHb 0.2 % (0.5-1.5); MetHb 0.2 % (0.0-1.5); O2Hb 98.5 % (94.0-97.0); PEEP,BG 5 cm H2O; SITE, ABG Right Radial; VT, ABG 500 mL
[2022-06-09] MEDS: NOREPINEPHRINE 8 MG in IV NS 0.9% 242 ML IV PRN (14:09)
[2022-06-09] MEDS ORDERED: LACOSAMIDE 200 MG in IV NS 0.9% 100 ML IV ONE (15:00)
--- NOTE | 2022-06-09 15:00 | NUR ---
ICU/RN EEG DONE .
--- NOTE | 2022-06-09 17:00 | NUR ---
ICU/RN PM CARE PROVIDED.DUE MEDS ARE GIVEN ORDERED. LEFT UPPER ARM PICC LINE INSERTED ORDERED.PT IS ON LEVOPHED DRIP.SEDATED WITH DIPRIVAN. AFEBRILE.WOUND CARE DONE .SUCTION PROVIDED.REPOSITION FOR COMFORT.CONTINUE MONITORING.
[2022-06-09] MEDS: NEPRO 1,000 ML BOTTLE GT PRN (18:09)
[2022-06-09 21:04] LABS: BILIRUBIN,URINE NEGATIVE (NEGATIVE); COLOR,URINE YELLOW (YELLOW); LEUKOCYTE ESTERASE ,URINE NEGATIVE (NEGATIVE); NITRITE, URINE NEGATIVE (NEGATIVE); PH,URINE 5.5 (5.0-8.0); PROTEIN,URINE 100 mg/dl (NEGATIVE); UGLUCOSE NEGATIVE (NEGATIVE); UROBILINOGEN,URINE 0.2 EU/dL (0.2)
[2022-06-09 21:43] LABS: BACTERIA,URINE Few /HPF (None Seen); HYALINE CASTS, URINE Few /LPF (None Seen); SQUAMOUS EPITHELIAL CELL,UR Few /HPF (None Seen)
[2022-06-09 21:45] LABS: WAXY CASTS,URINE Rare /LPF (None Seen)
[2022-06-09] MEDS: LACOSAMIDE ORAL SOLN 50 MG/5 ML UDC GT SCH (22:19)
[2022-06-09] MEDS: QUETIAPINE FUMARATE 25 MG TABLET GT SCH (22:19)
--- NOTE | 2022-06-09 23:00 | NUR ---
ICU/CORONER'S JUROR THERE IS ABOUT 750ML OF IVF STILL HANGING UP, THE SCHEDULE DOSE OF MEDICATION IS NOT GIVEN AT THIS TIME
[2022-06-10] VITALS (85 sets, daily range): BP systolic 97–157; BP diastolic 27–88
[2022-06-10] MEDS: PROPOFOL 100 ML IV PRN ×6 (00:52→23:43)
[2022-06-10] MEDS: PIPERACILLIN /TAZOBACTAM 3.375 G in IV D5W 100 ML IV SCH ×3 (02:41→18:39)
--- NOTE | 2022-06-10 04:25 | NUR ---
ICU/WELDER PRODUCTION LINE ARC STABLE BP 154/88 TURNED OFF LEVO, WILL CONTINUE TO MONITOR THIS PT AND HIS BP.
[2022-06-10 04:55] LABS: CALCIUM, SERUM 8.6 mg/dL (8.5-10.1); CREATININE 2.3 mg/dL (0.6-1.3); POTASSIUM 3.4 mmol/L (3.5-5.1)
[2022-06-10 07:28] LABS: BASOPHILS % (AUTO) 0.1 % (0.0-2.0); EOSINOPHILS % (AUTO) 1.1 % (0.0-6.0); HEMATOCRIT 26 % (39-51); HEMOGLOBIN 8.8 g/dL (13.5-17.5); LYMPHOCYTES % (AUTO) 9.4 % (20.0-44.0); MEAN CORPUSCULAR HGB CONC 33 g/dl (31.0-36.0); MEAN CORPUSCULAR VOLUME 88 fL (80-96); MONOCYTES # (AUTO) 0.7 K/uL (0.1-1.30); MONOCYTES % (AUTO) 6.2 % (2.0-12.0); NEUTROPHILS # (AUTO) 8.8 K/uL (1.8-8.9); NEUTROPHILS % (AUTO) 83.2 % (43.0-81.0); PLATELET COUNT (AUTO) 246 K/uL (150-450); RED BLOOD CELL COUNT(AUTO) 2.98 MIL/uL (4.5-6.0); WHITE BLOOD COUNT (AUTO) 10.6 K/uL (4.3-11.0)
[2022-06-10] MEDS: FERROUS SULFATE UDC 300 MG/5 ML UDC GT SCH (08:15)
[2022-06-10] MEDS: POTASSIUM CL. PREMIX PERIPHER. 50 ML IV SCH ×4 (08:15→13:16)
[2022-06-10] MEDS: CHLORHEXIDINE GLUCONATE 15 ML UDC MM SCH ×3 (08:16→16:08)
[2022-06-10] MEDS: MULTIVIT W/MINERALS 1 TAB TABLET GT SCH (08:16)
[2022-06-10] MEDS: LEVOTHYROXINE SODIUM 75 MCG TABLET GT SCH (08:16)
[2022-06-10] MEDS: ESCITALOPRAM OXALATE (10 MG) 10 MG TABLET GT SCH (08:16)
[2022-06-10] MEDS: LACOSAMIDE ORAL SOLN 50 MG/5 ML UDC GT SCH ×2 (08:16→21:28)
[2022-06-10] MEDS: QUETIAPINE FUMARATE 25 MG TABLET PO SCH (08:18)
[2022-06-10] MEDS: IV D5W 1,000 ML IV SCH (08:37)
[2022-06-10 08:45] LABS: ABG BASE EXCESS -0.1 mmol/L; ABG PCO2 35.3 mmHg (35.0-45.0); ABG PH 7.444 (7.350-7.450); ABG PO2 99.1 mmHg (75.0-100.0); AaDO2 145.5 mmHg; COHb 0.3 % (0.5-1.5); MetHb 0.3 % (0.0-1.5); O2Hb 96.4 % (94.0-97.0); SITE, ABG Left Radial
--- NOTE | 2022-06-10 09:04 | NUR ---
RN/ICU PT IN BED SEDATED ON PROPOFOL, VENT TRACH ON RESPIRATOR BREATHING EVENLY AND UNLABORED. NO S/S OF ACUTE DISTRESS, AFEBRILE. PT REMAINS CONTRACTED NO S/S OF SEIZURE ACTIVITY, SEIZURE PRECAUTIONS IN PLACE. PICC LINE IN PLACE, NO S/S OF INFILTRATION, DRESSING IS CLEAN AND INTACT. D5W RUNNING AT 100ML/H. PT SUCTIONED ORALLY AND THROUGH TRACHEOSTOMY. VITAL SIGNS WNL. HOB ELEVATED TO 45 DEGREES. BED LOCKED AND IN LOWEST POSITION. WILL BE REPLACING POTASSIUM AND CONTINUING ANTI EPILEPTIC MEDICATIONS.
[2022-06-10] MEDS: LEVETIRACETAM (500MG) 1,000 MG in IV NS 0.9% 100 ML IV SCH ×2 (10:08→21:30)
--- NOTE | 2022-06-10 17:31 | NUR ---
RT PATIENT REMAINS ORALLY INTUBATED ON [facility] WITH ORDERED SETTINGS. ETT SECURE AND IN PROPER POSITION. AIRWAY SUCTIONED AND PATENT. PATIENT SEDATED AND IN NO DISTRESS. AMBU BAG AT HOB. CONT CURRENT PLAN OF CARE. Addendum: 06/10/22 at 1733 by LUDWIG FERNANDEZ RT Amended: Links added.
[2022-06-10] MEDS: NEPRO 1,000 ML BOTTLE GT PRN (18:58)
--- NOTE | 2022-06-10 19:37 | NUR ---
PT IN BED NO S/S OF RESPIRATORY DISTRESS. SEDATED ON PROPOFOL AT 45 DOSE RATE. FEEDING RUNNING THROUGH GT AT 52ML/HR. NO SIGNS OF SEIZURE ACTIVITY. VIDES PATENT AND DRAINING. HOB ELEVATED TO 45 DEGREES BED LOCKED
[2022-06-10] MEDS: QUETIAPINE FUMARATE 25 MG TABLET GT SCH (21:28)
[2022-06-11] VITALS (49 sets, daily range): BP systolic 77–158; BP diastolic 39–88
--- NOTE | 2022-06-11 02:00 | NUR ---
ICU/MORTAR MIXER\ G-TUBE IS CLOGGED TRIED TO FLUSH, IRRIGATE, AND USE A G-TUBE STICK TO UNCLOG THE G-TUBE. STILL UNABLE TO MOVE FEEDING BEYOND. WILL WAIT FOR XRAY TO SEE IF IT'S IN POSITION.
[2022-06-11] MEDS: PIPERACILLIN /TAZOBACTAM 3.375 G in IV D5W 100 ML IV SCH ×3 (02:19→19:15)
[2022-06-11] MEDS: IV D5W 1,000 ML IV SCH ×3 (03:22→15:34)
[2022-06-11] MEDS: PROPOFOL 100 ML IV PRN ×4 (03:58→18:11)
[2022-06-11 04:00] LABS: BASOPHILS % (AUTO) 0.2 % (0.0-2.0); EOSINOPHILS % (AUTO) 1.5 % (0.0-6.0); HEMATOCRIT 27 % (39-51); HEMOGLOBIN 9.2 g/dL (13.5-17.5); LYMPHOCYTES # (AUTO) 0.4 K/uL (0.8-4.8); LYMPHOCYTES % (AUTO) 3.3 % (20.0-44.0); MEAN CORPUSCULAR HGB CONC 34 g/dl (31.0-36.0); MEAN CORPUSCULAR VOLUME 88 fL (80-96); MONOCYTES # (AUTO) 0.3 K/uL (0.1-1.30); MONOCYTES % (AUTO) 2.9 % (2.0-12.0); NEUTROPHILS # (AUTO) 9.9 K/uL (1.8-8.9); NEUTROPHILS % (AUTO) 92.1 % (43.0-81.0); PLATELET COUNT (AUTO) 265 K/uL (150-450); RED BLOOD CELL COUNT(AUTO) 3.11 MIL/uL (4.5-6.0); WHITE BLOOD COUNT (AUTO) 10.8 K/uL (4.3-11.0)
[2022-06-11 04:11] LABS: CALCIUM, SERUM 8.8 mg/dL (8.5-10.1); CREATININE 1.8 mg/dL (0.6-1.3); POTASSIUM 3.8 mmol/L (3.5-5.1)
--- NOTE | 2022-06-11 04:25 | NUR ---
ICU/WELDER TECH D5W IVF JUST SCANNED AT 0300, THE 0500 WILL NOT BE ADMINISTERED.
--- NOTE | 2022-06-11 07:30 | NUR ---
RN NOTES PT FOUND SEMI FOWLERS DISPLAYING NO S/S OF ACUTE DISTRESS, FLACC = 0, RIKERS = 4 AND BILATERAL RISE AND FALL OF THE CHEST OBSERVED. SPONTANEOUS EYE OPENING OBSERVED, CURRENT DIPRIVAN IS AT 50 MCG/KG/MIN. CARPET MEASURER REPORTS OCCLUSION OF PEG AND EXTENSIVE EFFORTS TO CREATE PATENCY. ASSESSMENT OF PEG FOUND OCCLUSION BUT NOT IN TUBING OUTSIDE OF BODY. DR APARICIO WILL BE INFORMED. L PICC IS PATENT AND INTACT. DRESSING NOTED ON R ARM. SOFT WRIST APPLIED, CAP REFILL < 3 SECONDS OF R HAND. VIDES CATH RESERVOIR BELOW PATIENT DRAINING BY GRAVITY. SAFETY MEASURES IN PLACE, BED LOCKED AND IN LOWEST POSITION, SIDE RAILS UPX2, CALL LIGHT WITHIN REACH, BED ALARM ARMED.
--- NOTE | 2022-06-11 07:37 | NUR ---
WOUND CARE CONSULT: PT SEEN FOR INTACT RED/PURPLE AREAS OF DISCOLORATION TO FEET. RECOMMEND DPM CONSULT (TO BE CALLED THIS AM TO DR STARK). RECOMMENDATIONS MADE FOR SKIN PROTECTION. DISCUSSED WITH NURSING STAFF. PT BEING FOLLOWED BY SURGICAL TEAM OF DR ABEBA GE FOR RT ARM BLISTERS. PT NOTED TO HAVE SACRAL SCARRING. PT ALSO NOTED TO HAVE SEVERE LOWER EXTREMITY CONTRACTURES WITH PITTING EDEMA. MULTIPLE CO-MORBIDITIES NOTED INCLUDING SEPSIS, ACUTE RESPIRATORY FAILURE (CURRENTLY INTUBATED), CHRONIC ENCEPHALOPATHY, HISTORY OF INTELLECTUAL DISABILITY, STATUS POST SEIZURE ACTIVITY AND FEVER, DYSPHAGIA, AND SPASTIC PARAPLEGIA. DUE TO MULTIPLE CO-MORBIDITIES, FURTHER SKIN BREAKDOWN MAY BE UNAVOIDABLE. OFFLOADING OF LOWER EXTREMITIES NOTED TO BE EXTREMELY DIFFICULT DUE TO SPASTIC PARAPLEGIA AND CONTRACTURES. FIRST STEP LOW AIRLOSS MATTRESS IS ON ORDER. MD IN AGREEMENT WITH PLAN OF CARE. Addendum: 06/11/22 at 0744 by YOVANNY CONTEH WNDNU Amended: Links added.
--- NOTE | 2022-06-11 08:00 | NUR ---
MD VISIT DR APARICIO VISITED PATIENT, PERFORMED ASSESSMENT. RN INFORMED MD OF OCCLUSION OF PEG, JUNG OF EFFORTS TO OBTAIN PATENCY. MD VERBALIZED THAT HE WILL SET UP GI CONSULT. RN ACKNOWLEDGED. RN WILL HOLD RX GIVEN VIA PEG.
[2022-06-11] MEDS: LACOSAMIDE ORAL SOLN 50 MG/5 ML UDC GT SCH ×2 (09:00→21:05)
[2022-06-11] MEDS: FERROUS SULFATE UDC 300 MG/5 ML UDC GT SCH (09:00)
[2022-06-11] MEDS: MULTIVIT W/MINERALS 1 TAB TABLET GT SCH (09:00)
[2022-06-11] MEDS: ESCITALOPRAM OXALATE (10 MG) 10 MG TABLET GT SCH (09:00)
[2022-06-11] MEDS: QUETIAPINE FUMARATE 25 MG TABLET PO SCH (09:00)
[2022-06-11] MEDS: LEVOTHYROXINE SODIUM 75 MCG TABLET GT SCH (09:00)
[2022-06-11] MEDS: SILVER SULFADIAZINE 50 GM JAR TP SCH (09:11)
[2022-06-11] MEDS: CHLORHEXIDINE GLUCONATE 15 ML UDC MM SCH ×3 (09:11→17:41)
--- NOTE | 2022-06-11 09:35 | NUR ---
MD COMMUNICATION RN INFORMED MD OF PT HAVING A FEVER, 102.8 ORAL. MD GAVE ORDER, TYLENOL 325MG SUPPOSITORY VIA RECTUM. RN ACKNOWLEDGED AND WILL EXECUTE ORDER.
[2022-06-11] MEDS ORDERED: ACETAMINOPHEN 325 MG/SUPP.RECT RC PRN (10:00)
[2022-06-11] MEDS: LEVETIRACETAM (500MG) 1,000 MG in IV NS 0.9% 100 ML IV SCH ×2 (10:09→21:05)
--- NOTE | 2022-06-11 19:10 | NUR ---
RN NOTES PT FOUND SEMI FOWLERS DISPLAYING NO S/S OF ACUTE DISTRESS, FLACC = 0, RIKERS = 2 AND BILATERAL RISE AND FALL OF THE CHEST OBSERVED. TITRATION OF PROPOFOL ONGOING TO OBTAIN IDEAL SEDATION. L UA PICC IS PATENT AND INTACT. R SOFT WRIST APPLIED, CAP REFILL < 3 SECONDS OF R HAND. VIDES CATH RESERVOIR BELOW PATIENT DRAINING BY GRAVITY. SBAR AND REPORT GIVEN TO PALAEONTOLOGIST RN, ALL QUESTIONS ANSWERED. SAFETY MEASURES IN PLACE, BED LOCKED AND IN LOWEST POSITION, SIDE RAILS UPX3, CALL LIGHT WITHIN REACH, BED ALARM ARMED.
--- NOTE | 2022-06-11 19:10 | NUR ---
RN OPENING NOTES RECEIVED PATIENT SEDATED. PT. ON ETT SIZE 7, 21 CM BY THE LIP, WITH VENT SETTINGS AC-14, TV- 500, FIO2-40%, PEEP- 5, SATING AT 98%. NOTED WITH TEMPERATURE 101.0 FAHRENHEIT, WITH COOLING BLANKET NOTED, NO S/S OF DISTRESS NOTED. WITH UMESH PICC LINE, PATENT, INTACT, FLUSHED WITH NS. NO S/S OF INFILTRATION NOTED. WITH IVF OF D5W @ 100 ML/HR. AND PROPOFOL @ 40 MCG/KG/MIN. RECEIVED WITH GTUBE CLOGGED, UNABLE TO FLUSHED. VIDES CATHETER PATENT INTACT DRAINING WITH CLEAR YELLOW URINE VIA GRAVITY. REPOSITION PATIENT EVERY 2 HRS. NOTED WITH RIGHT SOFT WRIST RESTRAINT, REASSESS AND RELEASE Q 2HR. ALL SAFETY PRECAUTION PROVIDED, BED IN LOWEST POSITION, LOCKED. BED ALARM ARMED. CALL LIGHT WITH IN REACH. CONTINUE TO MONITOR.
--- NOTE | 2022-06-11 20:00 | NUR ---
RN NOTES ABLE TO UNCLOGGED THE GTUBE, TUBE FEEDING NEPHRO @ 52 ML/HR STARTED, HEAD OF BED KEPT ELEVATED.
[2022-06-11] MEDS: NEPRO 1,000 ML BOTTLE GT PRN (20:12)
[2022-06-11] MEDS: QUETIAPINE FUMARATE 25 MG TABLET GT SCH (21:05)
[2022-06-12] VITALS (77 sets, daily range): BP systolic 58–144; BP diastolic 32–70
[2022-06-12] MEDS: ACETAMINOPHEN 325 MG TABLET PO PRN ×2 (00:22→06:56)
[2022-06-12] MEDS: IV D5W 1,000 ML IV SCH (00:30)
--- NOTE | 2022-06-12 00:31 | NUR ---
RN NOTES PATIENT NOTED WITH TEMP- 100.6 FAHRENHEIT, COOLING MEASURE PROVIDED. ACETAMINOPHEN 650MG GIVEN, CONTINUE TO MONITOR.
[2022-06-12] MEDS: PROPOFOL 100 ML IV PRN ×3 (00:45→20:29)
[2022-06-12] MEDS: PIPERACILLIN /TAZOBACTAM 3.375 G in IV D5W 100 ML IV SCH ×3 (04:14→19:01)
[2022-06-12 04:35] LABS: EOSINOPHILS % (AUTO) 0.3 % (0.0-6.0); HEMATOCRIT 24 % (39-51); HEMOGLOBIN 8.1 g/dL (13.5-17.5); LYMPHOCYTES # (AUTO) 0.3 K/uL (0.8-4.8); MEAN CORPUSCULAR HGB CONC 33 g/dl (31.0-36.0); MEAN CORPUSCULAR VOLUME 89 fL (80-96); MONOCYTES # (AUTO) 0.4 K/uL (0.1-1.30); MONOCYTES % (AUTO) 1.5 % (2.0-12.0); NEUTROPHILS # (AUTO) 25.9 K/uL (1.8-8.9); NEUTROPHILS % (AUTO) 97.2 % (43.0-81.0); PLATELET COUNT (AUTO) 153 K/uL (150-450); RED BLOOD CELL COUNT(AUTO) 2.73 MIL/uL (4.5-6.0); WHITE BLOOD COUNT (AUTO) 26.7 K/uL (4.3-11.0)
[2022-06-12 04:47] LABS: CREATININE 2.1 mg/dL (0.6-1.3); POTASSIUM 3.3 mmol/L (3.5-5.1)
--- NOTE | 2022-06-12 07:30 | NUR ---
RN NOTES PT FOUND SEMI FOWLERS DISPLAYING NO S/S OF DISTRESS, FLACC = 0, RIKERS = 3, BILATERAL RISE AND FALL OF THE CHEST OBSERVED. LINE FISHER REPORTS OBTAINING PATENCY OF PEG, TF ONGOING. APPROX 5 ML RESIDUAL MEASURED. L UA PICC IS PATENT AND INTACT. VIDES CATH RESERVOIR BELOW PATIENT DRAINING BY GRAVITY. RN WILL CONTINUE CARE PLAN AND ANTICIPATE NEEDS. SAFETY MEASURES IN PLACE, BED LOCKED AND IN LOWEST POSITION, SIDE RAILS UPX2, CALL LIGHT WITHIN REACH BED ALARM ARMED.
[2022-06-12] MEDS: FERROUS SULFATE UDC 300 MG/5 ML UDC GT SCH (08:55)
[2022-06-12] MEDS: LACOSAMIDE ORAL SOLN 50 MG/5 ML UDC GT SCH ×2 (08:55→21:28)
[2022-06-12] MEDS: CHLORHEXIDINE GLUCONATE 15 ML UDC MM SCH ×3 (08:55→18:03)
[2022-06-12] MEDS: LEVETIRACETAM SOL (5 ML) 100 MG/ML UDC GT SCH ×2 (08:55→21:28)
[2022-06-12] MEDS: QUETIAPINE FUMARATE 25 MG TABLET PO SCH (08:56)
[2022-06-12] MEDS: LEVOTHYROXINE SODIUM 75 MCG TABLET GT SCH (08:56)
[2022-06-12] MEDS: ESCITALOPRAM OXALATE (10 MG) 10 MG TABLET GT SCH (08:56)
[2022-06-12] MEDS: MULTIVIT W/MINERALS 1 TAB TABLET GT SCH (08:56)
[2022-06-12] MEDS: SILVER SULFADIAZINE 50 GM JAR TP SCH (08:57)
--- NOTE | 2022-06-12 09:18 | NUR ---
RT ETT PUSHED IN 2CM AND SECURED AT 24CM TOP LIP. RN MIREYA NOTIFIED.
[2022-06-12] MEDS ORDERED: POTASSIUM CHLORIDE 10 MEQ TABLET.SA GT ONE (10:00)
[2022-06-12] MEDS: NOREPINEPHRINE 8 MG in IV NS 0.9% 242 ML IV PRN (10:46)
[2022-06-12] MEDS ORDERED: POTASSIUM CHLORIDE 20 MEQ POWDER PACKET GT ONE (11:00)
--- NOTE | 2022-06-12 12:40 | NUR ---
MD COMMUNICATION RN INFORMED DR APARICIO ABOUT IV FLUIDS. MD GAVE ORDERS: CHANGE DEX 5 TO NS AT 75 ML/HR. RN ACKNOWLEDGED AND WILL EXECUTE ORDERS.
[2022-06-12] MEDS: IV NS 0.9% 1,000 ML IV PRN (12:53)
--- NOTE | 2022-06-12 17:58 | NUR ---
RT PATIENT REMAINS ORALLY INTUBATED ON [facility] VENT WITH ORDERED SETTINGS NIC WELL. VENT ALARMS CHECKED + AUDIBLE. ETT SECURE AND PATENT. AMBU BAG AT [facility]. PATIENT SEDATED AND APPEARS COMFORTABLE. CONT CURRENT PLAN CARE. Addendum: 06/12/22 at 1801 by LUDWIG FERNANDEZ RT Amended: Links added.
--- NOTE | 2022-06-12 19:07 | NUR ---
RN NOTES PT FOUND SEMI FOWLERS DISPLAYING NO S/S OF DISTRESS, FLACC = 0, RIKERS = 3, BILATERAL RISE AND FALL OF THE CHEST OBSERVED. TF ONGOING. L UA PICC IS PATENT AND INTACT. VIDES CATH RESERVOIR BELOW PATIENT DRAINING BY GRAVITY. FSM INSTALLED. SBAR AND REPORT GIVEN TO FLEET OPERATIONS MANAGER RN, ALL QUESTIONS ANSWERED. SAFETY MEASURES IN PLACE, BED LOCKED AND IN LOWEST POSITION, SIDE RAILS UPX2, CALL LIGHT WITHIN REACH BED ALARM ARMED.
--- NOTE | 2022-06-12 19:15 | NUR ---
RN OPENING NOTES RECEIVED PATIENT SEDATED. PT. ON ETT SIZE 7, 24 CM BY THE LIP, WITH VENT SETTINGS AC-14, TV- 500, FIO2-40%, PEEP- 5, SATING AT 99%. AFEBRILE, NO S/S OF DISTRESS NOTED. WITH UMESH PICC LINE, PATENT, INTACT, FLUSHED WITH NS. NO S/S OF INFILTRATION NOTED. WITH IVF OF NS @ 75 ML/HR., PROPOFOL @ 40 MCG/KG/MIN., LEVO @ 0.1 MCG/KG/MIN. RECEIVED WITH GTUBE, PATENT INTACT, VERIFIED PLACEMENT BY AUSCULTATION, NO RESIDUAL NOTED UPON ASPIRATION, FLUSHED WITH WATER, RUNNING WITH NEPRHO @ 48 ML/HR. VIDES CATHETER PATENT INTACT DRAINING WITH CLEAR YELLOW URINE VIA GRAVITY. REPOSITION PATIENT EVERY 2 HRS. NOTED WITH RIGHT SOFT WRIST RESTRAINT, REASSESS AND RELEASE Q 2HR. ALL SAFETY PRECAUTION PROVIDED, BED IN LOWEST POSITION, LOCKED. BED ALARM ARMED. CALL LIGHT WITH IN REACH. CONTINUE TO MONITOR.
[2022-06-12] MEDS ORDERED: VANCOMYCIN 1.25 GM in IV D5W 250 ML IV ONE (21:00)
--- NOTE | 2022-06-12 21:10 | NUR ---
RN NOTES PATIENT SEEN GRABBING HIS ETT, NOTIFIED ANKIT KO, WITH NEW ORDER RIGHT HAND SOFT WRIST RESTRAINT NOTED AND CARRIED OUT. WILL REASSESS AND RELEASE Q2HR TO CHECKED FOR CIRCULATION.
[2022-06-12] MEDS: QUETIAPINE FUMARATE 25 MG TABLET GT SCH (21:28)
--- NOTE | 2022-06-12 21:32 | NUR ---
RN NOTES VANCOMYCIN 1.25 ADMINISTERED.
[2022-06-12] MEDS: NEPRO 1,000 ML BOTTLE GT PRN (22:18)
[2022-06-13] VITALS (99 sets, daily range): BP systolic 17–162; BP diastolic 34–81
[2022-06-13] MEDS: PIPERACILLIN /TAZOBACTAM 3.375 G in IV D5W 100 ML IV SCH ×3 (02:52→18:16)
[2022-06-13] MEDS: IV NS 0.9% 1,000 ML IV PRN ×2 (03:37→15:31)
[2022-06-13 03:58] LABS: BASOPHILS # (AUTO) 0.2 K/uL (0.0-0.2); BASOPHILS % (AUTO) 1.1 % (0.0-2.0); EOSINOPHILS % (AUTO) 3.2 % (0.0-6.0); HEMATOCRIT 24 % (39-51); LYMPHOCYTES # (AUTO) 0.2 K/uL (0.8-4.8); LYMPHOCYTES % (AUTO) 1.3 % (20.0-44.0); MEAN CORPUSCULAR HGB CONC 34 g/dl (31.0-36.0); MEAN CORPUSCULAR VOLUME 88 fL (80-96); MONOCYTES # (AUTO) 0.1 K/uL (0.1-1.30); MONOCYTES % (AUTO) 0.5 % (2.0-12.0); NEUTROPHILS # (AUTO) 15.3 K/uL (1.8-8.9); NEUTROPHILS % (AUTO) 93.9 % (43.0-81.0); PLATELET COUNT (AUTO) 116 K/uL (150-450); RED BLOOD CELL COUNT(AUTO) 2.71 MIL/uL (4.5-6.0); WHITE BLOOD COUNT (AUTO) 16.3 K/uL (4.3-11.0)
--- NOTE | 2022-06-13 04:30 | NUR ---
RN NOTES PATIENT NOTED WITH TEMPERATURE-100.2 FAHRENHEIT, APPLIED COOLING BLANKET, ACETAMINOPHEN 650 MG GIVEN VIA NGT. CONTINUE TO MONITOR.
[2022-06-13] MEDS: ACETAMINOPHEN 325 MG TABLET PO PRN ×2 (04:38→13:54)
[2022-06-13 04:44] LABS: BILIRUBIN,DIRECT 0.1 mg/dL (0.0-0.2); BILIRUBIN,TOTAL 0.4 mg/dL (0.2-1.0); TOTAL PROTEIN, SERUM 5.4 g/dL (6.4-8.2)
[2022-06-13 04:51] LABS: ALBUMIN 1.4 g/dL (3.4-5.0)
--- NOTE | 2022-06-13 05:00 | NUR ---
RN NOTES LAB CALLED FOR PATIENT'S BLOOD GLUCOSE- 7 mg/dL, PATIENT IS ASYMPTOMATIC, CHECKED WITH GLUCOSE METER- 129 MG/DL. WILL REDRAW BLOOD.
--- NOTE | 2022-06-13 05:15 | NUR ---
RN NOTES TEMPERATURE RECHECK- 99.7 FAHRENHEIT, CONTIBUE COOLING MEASURE. CONTINUE TO MONITOR
[2022-06-13 06:01] LABS: CALCIUM, SERUM 8.1 mg/dL (8.5-10.1); CREATININE 2.4 mg/dL (0.6-1.3); POTASSIUM 3.1 mmol/L (3.5-5.1)
--- NOTE | 2022-06-13 06:10 | NUR ---
RN NOTES REDRAW DONE WITH RESULT BLOOD GLUCOSE-6 mg/dL, RECHECKED AGAIN WITH GLUCOSE METER- 128 mG/dL, NOTIFIED ANKIT JONES REGARDING TWO DIFFERENT RESULT FOR BLOOD GLUCOSE, TO ASKED THE LAB WHICH ONE WE GONNA FOLLOW BEFORE HE GAVE ORDER.
--- NOTE | 2022-06-13 06:30 | NUR ---
RN NOTED CALLED LAB, PER TERESITA THEIR HAVING AN ISSUE WITH THE MACHINE, AND WILL THEY WILL RERUN THE BLOOD. AWAITING FOR RESULT.
--- NOTE | 2022-06-13 06:45 | NUR ---
RN NOTES BALASPER FROM LAB, LATEST BLOOD SUGAR - 133 mg/dL. NOTIFIED ANKIT JONES.
[2022-06-13] MEDS: PROPOFOL 100 ML IV PRN (07:35)
--- NOTE | 2022-06-13 08:00 | NUR ---
rn notes RECEIVED PATIENT SEDATED, NO ACUTE RESPIRATORY DISTRESS. TOLERATING ETT SETTING WELL, NO SEIZURE NOTED, HR-101 ON BEDSIDE MONITOR. PATIENT TOTAL CARE. CONTRACTED. RECHECKED RESIDUAL 0 ML. RUNNING NEPRO 1.8 @48ML/HR INTACT. FLASHED FREE WATER 250 ML, DUE MEDICATION ADMINISTERED. VIDES DRAINING VIA GRAVITY. IV ACCESS ON SURYA PICC LINE INTACT, INFUSING NS @75.ML/HR, DIPRIVAN 20MCG/KG/MIN, LEVOPHED 0.1MCG/KG/MIN. ASSIST TURN AND REPOSTION Q 2 HR. WILL FOLLOW UP.
[2022-06-13] MEDS: NOREPINEPHRINE 8 MG in IV NS 0.9% 242 ML IV PRN (08:01)
[2022-06-13] MEDS: CHLORHEXIDINE GLUCONATE 15 ML UDC MM SCH ×3 (08:01→17:40)
[2022-06-13] MEDS: QUETIAPINE FUMARATE 25 MG TABLET PO SCH (08:02)
[2022-06-13] MEDS: LEVOTHYROXINE SODIUM 75 MCG TABLET GT SCH (08:02)
[2022-06-13] MEDS: FERROUS SULFATE UDC 300 MG/5 ML UDC GT SCH (08:02)
[2022-06-13] MEDS: ESCITALOPRAM OXALATE (10 MG) 10 MG TABLET GT SCH (08:02)
[2022-06-13] MEDS: LEVETIRACETAM SOL (5 ML) 100 MG/ML UDC GT SCH ×2 (08:02→21:20)
[2022-06-13] MEDS: MULTIVIT W/MINERALS 1 TAB TABLET GT SCH (08:03)
[2022-06-13] MEDS: SILVER SULFADIAZINE 50 GM JAR TP SCH (08:04)
[2022-06-13] MEDS ORDERED: POTASSIUM CHLORIDE 20 MEQ POWDER PACKET GT ONE (09:00)
[2022-06-13] MEDS ORDERED: POTASSIUM CHLORIDE 20 MEQ POWDER PACKET GT SCH (10:00)
--- NOTE | 2022-06-13 10:00 | NUR ---
RN NOTES SEEN PATIENT VIA BEET TOPPER Dr FALL AND PLAN IS: Continue ventilator support. Decrease FiO2 as able. Anticipate weaning trial if more stable. Continue broad-spectrum antibiotics for now Antiepileptic agents per neurology, Aspiration precautions, Reduce sedation as tolerated, consider Precedex for agitation, Monitor for seizure activity. RECHECKED BILATERAL WRIST RESTRAIN INTACT. PATIENT TOTAL CARE , PARAPLEGIC,. PATIENT TOLERATED GTF WELL. . WILL FOLLOW UP.
--- NOTE | 2022-06-13 10:45 | NUR ---
rn notes titrated Diprivan per protocol for sedation vacation. per dr Ramos's order. patient calm and cooperative. will follow up.
[2022-06-13] MEDS: LACOSAMIDE ORAL SOLN 50 MG/5 ML UDC GT SCH ×2 (11:00→21:21)
[2022-06-13] MEDS ORDERED: PRECEDEX 400 MCG/100 ML BOTTLE 100 ML IV PRN ×2 (11:30→12:00)
--- NOTE | 2022-06-13 12:04 | NUR ---
RN NOTES PATIENT CALM AND COOPERATIVE, OFF SEDATION, NO SOB, DUE MEDICATION ADMINISTERED, RECHECKED BILATERAL WRIST RESTRAIN INTACT. WILL FOLLOW UP.
--- NOTE | 2022-06-13 13:56 | NUR ---
rn notes T-99.7F administered Tylenol 650 ml.
--- NOTE | 2022-06-13 18:30 | NUR ---
RN NOTES PM CARE DONE, SUCTION MOUTH CARE, MEDICATION WERE ADMINISTERED FOR FEVER EFFECTIVE 98.8f, PATIENT AWAKE, OPEN HIS EYES, NO SEDATION AT THIS TIME. TITRATED LEVOPHED PER PROTOCOL, ALSO INFUSING NS @75ML/HR. FLASHED GT VIA FREE WATER 250 ML, RUNNING NEPRO @48ML/HR, ASSIST TURN AND REPOSTION. KEEP HOB ELEVATED FOR ASPIRATION PRECAUTION. ENDORSED ONCOMING NURSE FOLLOW PLAN OF CARE,
--- NOTE | 2022-06-13 21:00 | NUR ---
ICU/TALENT ADVISOR BLOOD PRESSURE IS STABLE, LEVO WAS TAKEN DOWN. WILL CONTINUE TO MONITOR THIS PT AND HIS BP.
[2022-06-13] MEDS: VANCOMYCIN 1 GM in IV D5W 250ml IV SCH (21:45)
[2022-06-13] MEDS: QUETIAPINE FUMARATE 25 MG TABLET GT SCH (22:18)
[2022-06-14] VITALS (49 sets, daily range): BP systolic 92–167; BP diastolic 48–85
[2022-06-14] MEDS: PIPERACILLIN /TAZOBACTAM 3.375 G in IV D5W 100 ML IV SCH ×3 (02:12→19:07)
[2022-06-14 04:14] LABS: BASOPHILS % (AUTO) 0.4 % (0.0-2.0); EOSINOPHILS % (AUTO) 0.6 % (0.0-6.0); HEMATOCRIT 22 % (39-51); HEMOGLOBIN 7.5 g/dL (13.5-17.5); LYMPHOCYTES # (AUTO) 0.5 K/uL (0.8-4.8); LYMPHOCYTES % (AUTO) 5.5 % (20.0-44.0); MEAN CORPUSCULAR HGB CONC 34 g/dl (31.0-36.0); MEAN CORPUSCULAR VOLUME 87 fL (80-96); MONOCYTES # (AUTO) 0.4 K/uL (0.1-1.30); MONOCYTES % (AUTO) 4.6 % (2.0-12.0); NEUTROPHILS # (AUTO) 7.8 K/uL (1.8-8.9); NEUTROPHILS % (AUTO) 88.9 % (43.0-81.0); PLATELET COUNT (AUTO) 96 K/uL (150-450); RED BLOOD CELL COUNT(AUTO) 2.53 MIL/uL (4.5-6.0); WHITE BLOOD COUNT (AUTO) 8.8 K/uL (4.3-11.0)
[2022-06-14 04:16] LABS: CALCIUM, SERUM 8.2 mg/dL (8.5-10.1); CREATININE 2.2 mg/dL (0.6-1.3); POTASSIUM 3.6 mmol/L (3.5-5.1)
--- NOTE | 2022-06-14 04:35 | NUR ---
ICU/OXIDATION ENGINEER STARTED PRECEDEX FRO SEDATION, PT APPEARS TO BE AGITATED WITH INCREASED HEART RATE AND INCREASED BLOOD PRESSURE. WILL MONITOR THIS PT.
[2022-06-14] MEDS: IV NS 0.9% 1,000 ML IV PRN (04:38)
[2022-06-14] MEDS: ACETAMINOPHEN 325 MG TABLET PO PRN (05:34)
[2022-06-14] MEDS: NEPRO 1,000 ML BOTTLE GT PRN (05:34)
--- NOTE | 2022-06-14 05:40 | NUR ---
ICU/VALET TYLENOL GIVEN FOR TEMP. 100.9 , WILL MONITOR THIS PT AND HIS FEVER.
--- NOTE | 2022-06-14 07:00 | NUR ---
RN NOTES RECEIVED PT ON BED, INTUBATED AND SEDATED, TOLERATING VENT SETTING WELL, O2 SAT WNL , NO DISTESS NOTED, RESPONDS TO PAINFUL STIMULI , ON PRECEDEX AT .2 MCG/KG/MIN, ON TELE SR , VIDES DRAINING TO GRAVITY, TF AT 48 CC/HR RUNNING , NO RESIDUAL NOTED, L UPPER ARM PICC LINE SITE ,CDI, t=100.3 AT THIS TIME, SR UP x3, CALL LIGHT WITHIN EASY REACH, BED LOCKED AND IN LOWEST POSITION, CONTINUE TO MONITOR .
[2022-06-14] MEDS: QUETIAPINE FUMARATE 25 MG TABLET PO SCH (08:11)
[2022-06-14] MEDS: ESCITALOPRAM OXALATE (10 MG) 10 MG TABLET GT SCH (08:11)
[2022-06-14] MEDS: CHLORHEXIDINE GLUCONATE 15 ML UDC MM SCH ×3 (08:11→16:48)
[2022-06-14] MEDS: FERROUS SULFATE UDC 300 MG/5 ML UDC GT SCH (08:11)
[2022-06-14] MEDS: LEVETIRACETAM SOL (5 ML) 100 MG/ML UDC GT SCH ×2 (08:11→21:10)
[2022-06-14] MEDS: LEVOTHYROXINE SODIUM 75 MCG TABLET GT SCH (08:11)
[2022-06-14] MEDS: MULTIVIT W/MINERALS 1 TAB TABLET GT SCH (08:11)
[2022-06-14] MEDS: LACOSAMIDE ORAL SOLN 50 MG/5 ML UDC GT SCH ×2 (08:13→21:10)
[2022-06-14] MEDS: SILVER SULFADIAZINE 50 GM JAR TP SCH (08:13)
--- NOTE | 2022-06-14 11:58 | NUR ---
weaning trial placed into cpap 5 / ps [address] gaona. rn aware Addendum: 06/14/22 at 1159 by JOHNIE BLAKE RT Amended: Links added.
--- NOTE | 2022-06-14 12:00 | NUR ---
RN NOTES PT IS MORE AWAKE , DOSE NOT FOLLOW COMMAND, CONTINUE TO MONITOR .
[2022-06-14 13:46] LABS: ABG BASE EXCESS -5.6 mmol/L; ABG OXYGEN SATURATION 98.4 % (92.0-98.5); ABG PCO2 34.1 mmHg (35.0-45.0); ABG PH 7.366 (7.350-7.450); ABG PO2 148.1 mmHg (75.0-100.0); AaDO2 97.9 mmHg; COHb 0.3 % (0.5-1.5); MetHb 0.3 % (0.0-1.5); O2Hb 97.8 % (94.0-97.0); SITE, ABG Left Radial; VENT MODE, BG CPAP 5 / PS 10
[2022-06-14] MEDS ORDERED: DC PROPOFOL WHEN EXTUBATED XX PRN (14:00)
--- NOTE | 2022-06-14 14:00 | NUR ---
RN NOTES ABG RESULTS SENT TO DR FALL , ORDER RECEIVED TO EXTUBATE . VSS STABLE ,
--- NOTE | 2022-06-14 14:30 | NUR ---
extubate pt extubated and place into nasal cannula @ 2 lpm o2 flow per dr. gaona. Addendum: 06/14/22 at 1432 by JOHNIE BLAKE RT Amended: Links added.
--- NOTE | 2022-06-14 18:00 | NUR ---
RN NOTES PT LETHARGIC , OPENS EYES AT TIMES, RESPONDS TO PAINFUL STIMULI, ON 2L O1 N/C , TOLERATING TF WELL, NO RESIDUAL NOTED, REMAINS EXTUBATED, O2 SAT WNL, WILL ENDORSE TO HAIR MACHINE OPERATOR NURSE FOR CONTINUITY OF CARE .
--- NOTE | 2022-06-14 20:30 | NUR ---
ICU/SECOND HAND PAPER MACHINE PT IS CURRENTLY ON 2 LITERS N/C WITH SATURATION AT 96-94%. PT WAS EXTUBATED EARLIER IN THE DAY. WILL CONTINUE TO MONITOR THIS PT AND HER SATURATION.
[2022-06-14] MEDS: QUETIAPINE FUMARATE 25 MG TABLET GT SCH (21:10)
[2022-06-14] MEDS: VANCOMYCIN 1 GM in IV D5W 250ml IV SCH (21:16)
[2022-06-15] VITALS (20 sets, daily range): BP systolic 134–168; BP diastolic 62–86
--- NOTE | 2022-06-15 01:00 | NUR ---
ICU/KNITTING MACHINE OPERATOR AM CARE WAS DONE ALONG WITH WOUND PHOTOS
[2022-06-15] MEDS: PIPERACILLIN /TAZOBACTAM 3.375 G in IV D5W 100 ML IV SCH ×3 (03:23→20:54)
[2022-06-15 04:04] LABS: CALCIUM, SERUM 8.9 mg/dL (8.5-10.1); CREATININE 2.1 mg/dL (0.6-1.3); POTASSIUM 3.5 mmol/L (3.5-5.1)
[2022-06-15 04:14] LABS: BASOPHILS % (AUTO) 0.3 % (0.0-2.0); EOSINOPHILS % (AUTO) 0.4 % (0.0-6.0); HEMATOCRIT 24 % (39-51); HEMOGLOBIN 8.2 g/dL (13.5-17.5); LYMPHOCYTES # (AUTO) 0.4 K/uL (0.8-4.8); LYMPHOCYTES % (AUTO) 4.7 % (20.0-44.0); MEAN CORPUSCULAR HGB CONC 34 g/dl (31.0-36.0); MEAN CORPUSCULAR VOLUME 87 fL (80-96); MONOCYTES # (AUTO) 0.5 K/uL (0.1-1.30); MONOCYTES % (AUTO) 6.1 % (2.0-12.0); NEUTROPHILS # (AUTO) 7.3 K/uL (1.8-8.9); NEUTROPHILS % (AUTO) 88.5 % (43.0-81.0); PLATELET COUNT (AUTO) 105 K/uL (150-450); RED BLOOD CELL COUNT(AUTO) 2.79 MIL/uL (4.5-6.0); WHITE BLOOD COUNT (AUTO) 8.2 K/uL (4.3-11.0)
[2022-06-15] MEDS: NEPRO 1,000 ML BOTTLE GT PRN (05:48)
[2022-06-15] MEDS ORDERED: IV NS 0.9% 250 ML IV PRN (06:00)
--- NOTE | 2022-06-15 07:30 | NUR ---
OPENING NOTE: REPORT RECEIVED FROM ALEX TELLEZ. ORDERS AND LABS REVIEWED DURING REPORT. PER REPORT PT WAS EXTUBATED YESTERDAY, IS ON 2L NC. PT IS BEDBOUND WITH BLISTERS ON RIGHT ARM, WOUND CARE ORDERS FOLLOWED. PT IS OBTUNDED, MAKES INCOHERANT SOUNDS PER REPORT. PT CHECKED ON HOURLY AND PRN BY NURSING STAFF.
[2022-06-15] MEDS: LACOSAMIDE ORAL SOLN 50 MG/5 ML UDC GT SCH ×2 (08:49→21:37)
[2022-06-15] MEDS: CHLORHEXIDINE GLUCONATE 15 ML UDC MM SCH ×3 (08:50→16:45)
[2022-06-15] MEDS: MULTIVIT W/MINERALS 1 TAB TABLET GT SCH (08:50)
[2022-06-15] MEDS: LEVETIRACETAM SOL (5 ML) 100 MG/ML UDC GT SCH ×2 (08:50→21:37)
[2022-06-15] MEDS: FERROUS SULFATE UDC 300 MG/5 ML UDC GT SCH (08:50)
[2022-06-15] MEDS: ESCITALOPRAM OXALATE (10 MG) 10 MG TABLET GT SCH (08:50)
[2022-06-15] MEDS: LEVOTHYROXINE SODIUM 75 MCG TABLET GT SCH (08:51)
[2022-06-15] MEDS: QUETIAPINE FUMARATE 25 MG TABLET PO SCH (08:51)
[2022-06-15] MEDS: SILVER SULFADIAZINE 50 GM JAR TP SCH (08:51)
--- NOTE | 2022-06-15 18:00 | NUR ---
PT TRANSFERRED TO ROOM 329 AT 1758 USING ACLS PROTOCOL. BEDSIDE REPORT GIVEN TO ABHAY HERRERA. VIDES EMPTIED PRIOR TO LEAVING ICU AND 1800 WATER FLUSH DONE IN ICU. ALL BELONGINGS AND MEDS BROUGHT WITH PATIENT.
--- NOTE | 2022-06-15 18:35 | NUR ---
CHEMICAL PACKAGER NOTES RECEIVED PATIENT FROM ICU AND BEDSIDE REPORT DONE , A/O X 1, NO VERBAL AND WITH O2 @ 2 L NC TOLERATED WELL NO SOB OR DISTRESS NOTED , TELE MONITOR ATTACHED WITH READING OF SR WITH HR OF 90 , PATIENT CONTRACTED BOTH AND LEGS AND WITH RIGHT ARM BLISTERS , SURYA PICC LINE WITH NS AT TKO , GTUBE FEEDING ON WITH NEPHRO @ 48CC/HR , NO S/S OF PAIN AND DISCOMFORT NOTED , SAFETY MEASURES PROVIDED , BED IN LOWEST POSITION , SR UP X 2 AND HIGH ON BED AT ALL TIMES , KEPT DRY AND CLEAN , V/S TAKEN AND RECORDED , BP 150/80 , P 85 , RR 20 , O2SAT 96% WITH 2 LITERS 02 , AND TEMP 98.1, ENDORSED TO NEXT SHIFT
--- NOTE | 2022-06-15 19:30 | NUR ---
SUPERINTENDENT SEED MILL OPENING NOTES RECEIVED PATIENT IN BED ASLEEP. OPENS EYES TO VERBAL AND TACTILE STIMULI. MAKES INCOMPREHENSIBLE SOUNDS. BREATHING EVEN AND NON-LABORED. ON O2 AT 2LPM VIA NASAL CANULA. NOT IN APPARENT DISTRESS. NO PAIN OR DISCOMFORT NOTED. ON TELE MONITOR READING SINUS RHYTHM AT 81 BPM. HAS LEFT UPPER ARM PICC LINE WITH NS RUNNING TKO. NO S/S OF INFILTRATION NOTED. HAS G-TUBE FEEDING OF NEPRO RUNNING AT 48 ML/HR. HAS INDWELLING VIDES CATHETER DRAINING CLEAR YELLOW URINE TO BAG BY GRAVITY. SAFETY MEASURES IN PLACE: BED LOW AND LOCKED, HOB ELEVATED, SIDE RAILS UP X3, CALL LIGHT WITHIN REACH. WILL CONTINUE POC.
--- NOTE | 2022-06-15 19:50 | NUR ---
MANAGER LIFE SCIENCES NOTES CALLED ICU BUT IV ABX IS NOT THERE. CALLED PX AND THEY WILL BRING THE IV ABX.
[2022-06-15] MEDS ORDERED: VANCOMYCIN HCL 0.75 GM in IV D5W 250 ML IV SCH (21:00)
[2022-06-15] MEDS: QUETIAPINE FUMARATE 25 MG TABLET GT SCH (21:37)
[2022-06-16] VITALS: BP 134/70
[2022-06-16] MEDS: PIPERACILLIN /TAZOBACTAM 3.375 G in IV D5W 100 ML IV SCH ×3 (02:25→20:17)
[2022-06-16 04:00] VITALS: BP 164/84
[2022-06-16] MEDS: hydrALAZINE HCL 25 MG TABLET GT PRN (05:54)
[2022-06-16 07:00] VITALS: BP 104/67
--- NOTE | 2022-06-16 07:00 | NUR ---
IRON WORKER CLOSING NOTES PATIENT IN BED ASLEEP, EASY TO AROUSE. OPENS EYES, MAKES INCOMPREHENSIBLE SOUNDS. ON O2 AT 2LPM VIA NASAL CANULA, NO SOB OR NOTED. NOT IN ACUTE DISTRESS. NO S/S OF PAIN NOTED. AFEBRILE. ON TELE MONITOR READING SINUS RHYTHM AT 83 BPM. HAS LEFT UPPER ARM PICC LINE WITH NS RUNNING TKO. INTACT, PATENT AND FLUSHING. HAS G-TUBE FEEDING OF NEPRO RUNNING AT 48 ML/HR. NO RESIDUAL NOTED. URINE OUTPUT OF 1100 ML. ALL DUE MEDS GIVEN AND NEEDS ATTENDED. SAFETY MEASURES MAINTAINED. WILL ENDORSE TO NEXT SHIFT FOR COLLIN.
[2022-06-16 07:21] LABS: BASOPHILS % (AUTO) 0.4 % (0.0-2.0); EOSINOPHILS % (AUTO) 1.2 % (0.0-6.0); HEMATOCRIT 25 % (39-51); HEMOGLOBIN 8.5 g/dL (13.5-17.5); LYMPHOCYTES # (AUTO) 0.4 K/uL (0.8-4.8); LYMPHOCYTES % (AUTO) 7.7 % (20.0-44.0); MEAN CORPUSCULAR HGB CONC 34 g/dl (31.0-36.0); MEAN CORPUSCULAR VOLUME 88 fL (80-96); MONOCYTES # (AUTO) 0.6 K/uL (0.1-1.30); MONOCYTES % (AUTO) 11.3 % (2.0-12.0); NEUTROPHILS # (AUTO) 4.5 K/uL (1.8-8.9); NEUTROPHILS % (AUTO) 79.4 % (43.0-81.0); PLATELET COUNT (AUTO) 114 K/uL (150-450); RED BLOOD CELL COUNT(AUTO) 2.87 MIL/uL (4.5-6.0); WHITE BLOOD COUNT (AUTO) 5.6 K/uL (4.3-11.0)
--- NOTE | 2022-06-16 07:30 | NUR ---
REGULATORY SPECIALIST OPENING NOTES RECEIVED PATIENT IN BED ASLEEP. BUT AROUSABLE OPENS EYES TO VERBAL AND TACTILE STIMULI. MAKES INCOMPREHENSIBLE SOUNDS. NO SOB OR DISTRESS NOTED . ON O2 AT 2LPM VIA NASAL CANNULA. NOT IN APPARENT DISTRESS. NO PAIN OR DISCOMFORT NOTED. ON TELE MONITOR READING SINUS TACHY AT 96 BPM. HAS LEFT UPPER ARM PICC LINE WITH NS RUNNING TKO. NO S/S OF INFILTRATION NOTED. HAS G-TUBE FEEDING OF NEPRO RUNNING AT 48 ML/HR. HAS INDWELLING VIDES CATHETER DRAINING CLEAR YELLOW URINE TO BAG BY GRAVITY. SAFETY MEASURES IN PLACE: BED LOW AND LOCKED, HOB ELEVATED, SIDE RAILS UP X3, CALL LIGHT WITHIN REACH. WILL CONTINUE POC.
[2022-06-16 07:57] LABS: CALCIUM, SERUM 9.3 mg/dL (8.5-10.1); CREATININE 1.9 mg/dL (0.6-1.3); PHOSPHORUS 3.1 mg/dL (2.5-4.9); POTASSIUM 3.6 mmol/L (3.5-5.1)
[2022-06-16] MEDS: FERROUS SULFATE UDC 300 MG/5 ML UDC GT SCH (08:49)
[2022-06-16] MEDS: CHLORHEXIDINE GLUCONATE 15 ML UDC MM SCH ×3 (08:50→18:01)
[2022-06-16] MEDS: ESCITALOPRAM OXALATE (10 MG) 10 MG TABLET GT SCH (08:50)
[2022-06-16] MEDS: LEVETIRACETAM SOL (5 ML) 100 MG/ML UDC GT SCH ×2 (08:50→20:55)
[2022-06-16] MEDS: MULTIVIT W/MINERALS 1 TAB TABLET GT SCH (08:50)
[2022-06-16] MEDS: LEVOTHYROXINE SODIUM 75 MCG TABLET GT SCH (08:50)
[2022-06-16] MEDS: QUETIAPINE FUMARATE 25 MG TABLET PO SCH (08:50)
[2022-06-16] MEDS: LACOSAMIDE ORAL SOLN 50 MG/5 ML UDC GT SCH ×2 (08:55→21:04)
[2022-06-16] MEDS: NEPRO 1,000 ML BOTTLE GT PRN (09:03)
[2022-06-16] MEDS: SILVER SULFADIAZINE 50 GM JAR TP SCH (09:21)
[2022-06-16] MEDS: IV D5W 1,000 ML IV SCH (11:31)
[2022-06-16 12:00] VITALS: BP 192/94
[2022-06-16 16:00] VITALS: BP 138/54
--- NOTE | 2022-06-16 18:55 | NUR ---
AGRICULTURAL SERVICE WORKER CLOSING NOTES PATIENT IN BED AWAKE , OPENS EYES TO VERBAL AND TACTILE STIMULI. . NO SOB OR DISTRESS NOTED . ON O2 AT 2LPM VIA NASAL CANNULA. NOT IN APPARENT DISTRESS. NO PAIN OR DISCOMFORT NOTED. ON TELE MONITOR READING SINUS TACHY AT 96 BPM. HAS LEFT UPPER ARM PICC LINE WITH IV OF [id number] @ 75 ML /HR DUE TO INCREASE NA LEVEL . NO S/S OF INFILTRATION NOTED. HAS G-TUBE FEEDING OF NEPRO RUNNING AT 52 ML/HR PER RD AND TOLERATED WELL . DRESSING ON THE RIGHT HAND DONE , TURNED AND REPOSITIONED Q 2 HOURS , HAS INDWELLING VIDES CATHETER DRAINING CLEAR YELLOW URINE TO BAG BY GRAVITY. SAFETY MEASURES IN PLACE: BED LOW AND LOCKED, HOB ELEVATED, SIDE RAILS UP X3, CALL LIGHT WITHIN REACH. ENDORSED TO NEXT SHIFT
--- NOTE | 2022-06-16 19:40 | NUR ---
TILE TRIMMER OPENING NOTE RECEIVED PATIENT IN BED AWAKE, NON VERBAL. NO SOB OR DISTRESS NOTED. ON O2 AT 2LPM VIA NASAL CANNULA. NOT IN APPARENT DISTRESS. NO PAIN OR DISCOMFORT NOTED. ON TELE MONITOR READING SINUS TACHY. HAS LEFT UPPER ARM PICC LINE WITH D5W RUNNING AT 75 ML/HR. NO S/S OF INFILTRATION NOTED. HAS G-TUBE FEEDING OF NEPRO RUNNING AT 52 ML/HR. HAS INDWELLING VIDES CATHETER DRAINING CLEAR YELLOW URINE TO BAG BY GRAVITY. SAFETY MEASURES IN PLACE: BED LOW AND LOCKED, HOB ELEVATED, SIDE RAILS UP X3, CALL LIGHT WITHIN REACH. WILL CONTINUE TO MONITOR PT.
[2022-06-16 20:00] VITALS: BP 147/80
[2022-06-16] MEDS: ACETAMINOPHEN 325 MG TABLET PO PRN (20:56)
[2022-06-16] MEDS: QUETIAPINE FUMARATE 25 MG TABLET GT SCH (21:47)
[2022-06-17] VITALS: BP 120/75
[2022-06-17] MEDS: IV D5W 1,000 ML IV SCH ×2 (00:20→15:42)
[2022-06-17] MEDS: PIPERACILLIN /TAZOBACTAM 3.375 G in IV D5W 100 ML IV SCH ×3 (02:59→20:03)
[2022-06-17 04:00] VITALS: BP 153/73
[2022-06-17 06:36] LABS: BASOPHILS % (AUTO) 0.4 % (0.0-2.0); HEMATOCRIT 27 % (39-51); HEMOGLOBIN 8.8 g/dL (13.5-17.5); LYMPHOCYTES # (AUTO) 0.6 K/uL (0.8-4.8); LYMPHOCYTES % (AUTO) 9.9 % (20.0-44.0); MEAN CORPUSCULAR HGB CONC 33 g/dl (31.0-36.0); MEAN CORPUSCULAR VOLUME 88 fL (80-96); MONOCYTES # (AUTO) 0.8 K/uL (0.1-1.30); MONOCYTES % (AUTO) 11.7 % (2.0-12.0); NEUTROPHILS # (AUTO) 4.9 K/uL (1.8-8.9); PLATELET COUNT (AUTO) 180 K/uL (150-450); RED BLOOD CELL COUNT(AUTO) 3.06 MIL/uL (4.5-6.0); WHITE BLOOD COUNT (AUTO) 6.4 K/uL (4.3-11.0)
[2022-06-17 06:48] LABS: CALCIUM, SERUM 9.4 mg/dL (8.5-10.1); POTASSIUM 3.7 mmol/L (3.5-5.1)
--- NOTE | 2022-06-17 07:20 | NUR ---
HEALTHCARE MANAGEMENT CLOSING NOTE PATIENT IN BED ASLEEP, EASY TO AROUSE. OPENS EYES, MAKES INCOMPREHENSIBLE SOUNDS. ON O2 AT 2LPM VIA NASAL CANULA, NO SOB OR NOTED. NOT IN ACUTE DISTRESS. NO S/S OF PAIN NOTED. AFEBRILE RIGHT NOW. BUT PT HAD A FEVER AT 100.7. TYLENOL ADMINISTERED TO PT, AND COOLING MEASURES DONE. TEMP WENT DOWN TO 98.0. ON TELE MONITOR READING SINUS RHYTHM AT 83 BPM. HAS LEFT UPPER ARM PICC LINE WITH NS RUNNING D5W AT 75 ML/HR. INTACT, PATENT. HAS G-TUBE FEEDING OF NEPRO RUNNING AT 52 ML/HR. NO RESIDUAL NOTED. FEEDING CHANGED. URINE OUTPUT OF 1000 ML. ALL DUE MEDS GIVEN AND NEEDS ATTENDED. SAFETY MEASURES MAINTAINED. WILL ENDORSE TO NEXT SHIFT FOR COLLIN.
--- NOTE | 2022-06-17 07:23 | NUR ---
WELLNESS SPA MANAGER OPENING NOTES RECEIVED PATIENT AWAKE IN BED IN NO ACUTE SIGNS OF DISTRESS. HOB ELEVATED. PT IS ALERT, NON-VERBAL AND OPENS EYES TO VERBAL AND TACTILE STIMULI. ON O2 VIA N/C AT 2LPM, TOLERATING WELL, BREATHING EVEN AND UN-LABORED. ON TELE-MONITOR WITH CURRENT READING OF SR, HR 88 BPM, NO CARDIAC DISTRESS NOTED AT THIS TIME. PT HAS SURYA PICC LINE WITH D5W RUNNING @ 75ML/HR, NO S/S OF INFILTRATION NOTED. G-TUBE IN PLACE WITH FEEDING OF NEPRO RUNNING AT 52 ML/HR, TOLERATING WELL. ASPIRATION PRECAUTIONS MAINTAINED. VIDES CATHETER INTACT DRAINING CLEAR YELLOW URINE OUTPUT BY GRAVITY. SAFETY MEASURES IN PLACE: BED IN LOWEST AND LOCKED POSITION, HOB ELEVATED, SIDE RAILS UP X3, CALL LIGHT WITHIN REACH. WILL CONTINUE POC.
[2022-06-17] MEDS: NEPRO 1,000 ML BOTTLE GT PRN (07:36)
[2022-06-17] MEDS: LEVETIRACETAM SOL (5 ML) 100 MG/ML UDC GT SCH ×2 (09:25→21:49)
[2022-06-17] MEDS: LACOSAMIDE ORAL SOLN 50 MG/5 ML UDC GT SCH ×2 (09:25→21:49)
[2022-06-17] MEDS: ESCITALOPRAM OXALATE (10 MG) 10 MG TABLET GT SCH (09:26)
[2022-06-17] MEDS: FERROUS SULFATE UDC 300 MG/5 ML UDC GT SCH (09:26)
[2022-06-17] MEDS: MULTIVIT W/MINERALS 1 TAB TABLET GT SCH (09:26)
[2022-06-17] MEDS: CHLORHEXIDINE GLUCONATE 15 ML UDC MM SCH ×3 (09:26→16:26)
[2022-06-17] MEDS: LEVOTHYROXINE SODIUM 75 MCG TABLET GT SCH (09:26)
[2022-06-17] MEDS: QUETIAPINE FUMARATE 25 MG TABLET PO SCH (09:27)
[2022-06-17] MEDS: SILVER SULFADIAZINE 50 GM JAR TP SCH (09:28)
--- NOTE | 2022-06-17 18:55 | NUR ---
RUG CUTTER HELPER CLOSING NOTES PATIENT IN BED AWAKE AT THIS TIME. HOB ELEVATED. ALERT, NON-VERBAL AND OPENS EYES TO VERBAL AND TACTILE STIMULI. MAINTAINED ON O2 VIA N/C AT 2LPM, TOLERATING WELL, BREATHING EVEN AND UN-LABORED. ON TELE-MONITOR WITH CURRENT READING OF SR, HR 89 BPM, NO CARDIAC DISTRESS NOTED DURING SHIFT. PT HAS SURYA PICC LINE WITH D5W RUNNING @ 75ML/HR, NO S/S OF INFILTRATION NOTED. G-TUBE IN PLACE WITH FEEDING OF NEPRO RUNNING AT 52 ML/HR, TOLERATING WELL. ASPIRATION PRECAUTIONS MAINTAINED. VIDES CATHETER INTACT DRAINING CLEAR YELLOW URINE OUTPUT BY GRAVITY, VIDES CARE DONE. PT TURNED AND REPOSITIONED Q 2HRS AND PRN. ALL NEEDS AND CARE PROVIDED WELL. SAFETY MEASURES KEPT IN PLACE: BED IN LOWEST AND LOCKED POSITION, HOB ELEVATED, SIDE RAILS UP X3, CALL LIGHT WITHIN REACH. WILL ENDORSE COLLIN TO METROLOGY MANAGER NURSE.
--- NOTE | 2022-06-17 19:45 | NUR ---
CAD DETAILER OPENING NOTE RECEIVED PATIENT SLEEPING IN BED IN NO ACUTE SIGNS OF DISTRESS. HOB ELEVATED. PT IS ALERT, NON-VERBAL AND OPENS EYES TO VERBAL AND TACTILE STIMULI. ON O2 VIA N/C AT 2 LPM, TOLERATING WEL. BREATHING EVEN AND UNLABORED. ON TELE MONITOR WITH READING OF SR, HR 83 BPM, NO CARDIAC DISTRESS NOTED AT THIS TIME. PT HAS LEFT UA PICC LINE WITH D5W RUNNING @ 75ML/HR, NO S/S OF INFILTRATION NOTED. G-TUBE IN PLACE WITH FEEDING OF NEPRO RUNNING AT 52 ML/HR, TOLERATING WELL. ASPIRATION PRECAUTIONS MAINTAINED. VIDES CATHETER INTACT DRAINING CLEAR YELLOW URINE. SAFETY MEASURES IN PLACE: BED IN LOWEST AND LOCKED POSITION, HOB ELEVATED, SIDE RAILS UP X3, CALL LIGHT WITHIN REACH. WILL CONTINUE TO MONITOR PT.
[2022-06-17 20:00] VITALS: BP 173/64
[2022-06-17] MEDS: QUETIAPINE FUMARATE 25 MG TABLET GT SCH (21:49)
[2022-06-17] MEDS: hydrALAZINE HCL 25 MG TABLET GT PRN (21:59)
[2022-06-18] VITALS: BP 150/78
[2022-06-18] MEDS: PIPERACILLIN /TAZOBACTAM 3.375 G in IV D5W 100 ML IV SCH ×3 (02:17→18:08)
[2022-06-18 04:00] VITALS: BP 167/83
[2022-06-18] MEDS: hydrALAZINE HCL 25 MG TABLET GT PRN (06:39)
[2022-06-18 06:44] LABS: BASOPHILS % (AUTO) 0.5 % (0.0-2.0); EOSINOPHILS % (AUTO) 2.6 % (0.0-6.0); HEMATOCRIT 26 % (39-51); HEMOGLOBIN 8.5 g/dL (13.5-17.5); LYMPHOCYTES # (AUTO) 0.7 K/uL (0.8-4.8); LYMPHOCYTES % (AUTO) 11.6 % (20.0-44.0); MEAN CORPUSCULAR HGB CONC 33 g/dl (31.0-36.0); MEAN CORPUSCULAR VOLUME 88 fL (80-96); MONOCYTES # (AUTO) 0.5 K/uL (0.1-1.30); MONOCYTES % (AUTO) 8.4 % (2.0-12.0); NEUTROPHILS # (AUTO) 4.7 K/uL (1.8-8.9); NEUTROPHILS % (AUTO) 76.9 % (43.0-81.0); PLATELET COUNT (AUTO) 233 K/uL (150-450); RED BLOOD CELL COUNT(AUTO) 2.98 MIL/uL (4.5-6.0); WHITE BLOOD COUNT (AUTO) 6.1 K/uL (4.3-11.0)
[2022-06-18 06:57] LABS: CALCIUM, SERUM 9.5 mg/dL (8.5-10.1); CREATININE 1.8 mg/dL (0.6-1.3); MAGNESIUM 2.3 mg/dL (1.8-2.4); PHOSPHORUS 4.2 mg/dL (2.5-4.9); POTASSIUM 3.8 mmol/L (3.5-5.1)
[2022-06-18 07:00] VITALS: BP 146/91
--- NOTE | 2022-06-18 07:00 | NUR ---
CONCRETE PRECAST MOULDER OPENING NOTE LEFT PATIENT SLEEPING IN BED IN NO ACUTE SIGNS OF DISTRESS. HOB ELEVATED. PT IS ALERT, NON-VERBAL. ON O2 VIA N/C AT 2 LPM, TOLERATING WELL. BREATHING EVEN AND UNLABORED. ON TELE MONITOR WITH READING OF SR, HR 80 BPM, NO CARDIAC DISTRESS NOTED AT THIS TIME. PT HAS LEFT UA PICC LINE WITH D5W RUNNING @ 75ML/HR, NO S/S OF INFILTRATION NOTED. G-TUBE IN PLACE WITH FEEDING OF NEPRO RUNNING AT 52 ML/HR, TOLERATING WELL. ASPIRATION PRECAUTIONS MAINTAINED. VIDES CATHETER INTACT DRAINING CLEAR YELLOW URINE. PT HAD X2 EPISODES OF HIGH BP DURING SHIFT. PT WAS ADMINISTERED HYDRALAZINE X2 THROUGHOUT SHIFT. SAFETY MEASURES IN PLACE: BED IN LOWEST AND LOCKED POSITION, HOB ELEVATED, SIDE RAILS UP X3, CALL LIGHT WITHIN REACH. WILL CONTINUE TO MONITOR PT.
--- NOTE | 2022-06-18 07:27 | NUR ---
WIND FIELD MANAGER OPENING NOTE Received patient lying awake in bed, non-verbal and opens eyes to verbal and tactile stimuli. Attached to monitoring manager, showing sinus rhythm with HR of 88. No cardiac distress noted at this time. On 02 via nasal cannula at 2LPM, tolerating well, breathing evenly and unlabored. Patient has IV access at [facility] with D5W at 75ml/ hour, patent and intact. On G-tube feeding, Nephro 52ml/ hour, tolerating well. Aspiration precautions maintained. Perez catheter draining clear urine, intact. Initiated safety precautions, side rails up x 3, bed lowered. Will continue to monitor throughout the shift.
[2022-06-18] MEDS: FERROUS SULFATE UDC 300 MG/5 ML UDC GT SCH (08:15)
[2022-06-18] MEDS: CHLORHEXIDINE GLUCONATE 15 ML UDC MM SCH ×3 (08:16→16:16)
[2022-06-18] MEDS: QUETIAPINE FUMARATE 25 MG TABLET PO SCH (08:17)
[2022-06-18] MEDS: ESCITALOPRAM OXALATE (10 MG) 10 MG TABLET GT SCH (08:17)
[2022-06-18] MEDS: MULTIVIT W/MINERALS 1 TAB TABLET GT SCH (08:17)
[2022-06-18] MEDS: LACOSAMIDE ORAL SOLN 50 MG/5 ML UDC GT SCH ×2 (08:18→21:21)
[2022-06-18] MEDS: LEVOTHYROXINE SODIUM 75 MCG TABLET GT SCH (08:18)
[2022-06-18] MEDS: IV D5W 1,000 ML IV SCH (08:19)
[2022-06-18] MEDS: SILVER SULFADIAZINE 50 GM JAR TP SCH (08:19)
[2022-06-18] MEDS: LEVETIRACETAM SOL (5 ML) 100 MG/ML UDC GT SCH ×2 (08:22→21:21)
[2022-06-18] MEDS: NEPRO 1,000 ML BOTTLE GT PRN (11:53)
[2022-06-18 12:00] VITALS: BP_SYST 158; BP_SYST 168; BP_DIAS 76
[2022-06-18] MEDS: IV 1/2NS 1000 ML 1,000 ML IV SCH (14:56)
[2022-06-18] MEDS: TRAMADOL HCL 50 MG TABLET GT PRN (16:15)
--- NOTE | 2022-06-18 16:20 | NUR ---
RN NOTE Observed patient with facial grimaces. Administered Tramadol 50mg via G-tube at 1415. Will continue to monitor and reassess pt.
--- NOTE | 2022-06-18 18:38 | NUR ---
SAUSAGE CANNER CLOSING NOTES PATIENT IN BED ASLEEP AT THIS TIME, EASILY AROUSABLE. HOB ELEVATED. PT IS ALERT, NON-VERBAL AND OPENS EYES TO VERBAL AND TACTILE STIMULI. ON O2 VIA N/C AT 2LPM, TOLERATING WELL WITH NO ACUTE RESPIRATORY NOTED DURING SHIFT. ON TELE-MONITOR WITH READING OF SR, HR 94 BPM AT THIS TIME, NO CARDIAC DISTRESS NOTED DURING SHIFT. PT HAS SURYA PICC LINE WITH 1/2 NS @ 90ML/HR INFUSING WELL, NO S/S OF INFILTRATION NOTED. G-TUBE IN PLACE WITH FEEDING OF NEPRO RUNNING AT 52 ML/HR, TOLERATING WELL. ASPIRATION PRECAUTIONS MAINTAINED. VIDES CATHETER INTACT DRAINING CLEAR YELLOW URINE OUTPUT BY GRAVITY, VIDES CARE DONE. PT TURNED AND REPOSITIONED Q 2HRS AND PRN. ALL NEEDS ANTICIPATED AND MET. SAFETY MEASURES KEPT IN PLACE: BED IN LOWEST AND LOCKED POSITION, HOB ELEVATED, SIDE RAILS UP X3 AND CALL LIGHT WITHIN REACH. WILL ENDORSE COLLIN TO OXYGEN PLANT OPERATOR NURSE.
--- NOTE | 2022-06-18 19:30 | NUR ---
CLINICAL MASSAGE THERAPIST OPENING NOTE RECEIVED PT IN BED, EYES OPEN TO VERBAL STIMULI. NON-VERBAL. ON O2 VIA NC @ 2LPM, TOLERATING WELL. NO SOB OR S/S OF RESPIRATORY DISTRESS. ON EXTERNAL OYSTER SHUCKER READING SR 86 BPM. IV ACCESS SURYA PICC RUNNING 1/2 NS @ 90ML/HR, INTACT AND PATENT. G-TUBE IN PLACE RUNNING NEPRO @ 52 ML/HR, TOLERATING WELL. ASPIRATION PRECAUTIONS MAINTAINED. VIDES CATHETER IN PLACE DRAINING CLEAR YELLOW URINE OUTPUT BY GRAVITY. SAFETY PRECAUTIONS IN PLACE. BED IN LOWEST LOCKED POSITION, HOB ELEVATED, SIDE RAILS UP X3, AND CALL LIGHT AND TABLE WITHIN REACH. ALL NEEDS MET AT THIS TIME.
[2022-06-18 20:00] VITALS: BP 157/84
[2022-06-18] MEDS: QUETIAPINE FUMARATE 25 MG TABLET GT SCH (21:21)
[2022-06-19] VITALS: BP 120/65
[2022-06-19] MEDS: IV 1/2NS 1000 ML 1,000 ML IV SCH ×2 (02:37→13:03)
[2022-06-19 04:00] VITALS: BP 131/69
--- NOTE | 2022-06-19 06:57 | NUR ---
SCUBA DIVER CLOSING NOTE PT IN BED, EYES OPEN TO VERBAL STIMULI. NON-VERBAL. ON O2 VIA NC @ 2LPM, TOLERATING WELL. NO SOB OR S/S OF RESPIRATORY DISTRESS. ON EXTERNAL BARIATRIC PHYSICIAN READING SR 100 BPM. IV ACCESS SURYA PICC RUNNING 1/2 NS @ 90ML/HR, INTACT AND PATENT. G-TUBE IN PLACE RUNNING NEPRO @ 52 ML/HR, TOLERATING WELL. ASPIRATION PRECAUTIONS MAINTAINED. VIDES CATHETER IN PLACE DRAINING CLEAR YELLOW URINE OUTPUT BY GRAVITY, DRAINED 1600 CC THIS SHIFT. ALL DUE MEDS GIVEN ORDERED. TURNED AND REPOSITIONED Q2H. KEPT CLEAN AND DRY. SAFETY PRECAUTIONS IN PLACE AT ALL TIMES. BED IN LOWEST LOCKED POSITION, HOB ELEVATED, SIDE RAILS UP X3, AND CALL LIGHT AND TABLE WITHIN REACH. ALL NEEDS MET AT THIS TIME AND WILL ENDORSE TO ONCOMING NURSE FOR COLLIN.
--- NOTE | 2022-06-19 07:29 | NUR ---
POWER BARKER OPENING NOTE RECEIVED PT ASLEEP IN BED, EASILY AROUSED. PT IS ALERT AND NON-VERBAL. PT OPENS EYES TO STIMULI. ON O2 AT 2L/MIN VIA NASAL CANNULA, TOLERATING WELL. NO SOB NOTED. NOT IN ANY SIGN OF RESPIRATORY DISTRESS. ON TELE PARTY CHIEF WITH CURRENT READING OF SINU RHYTHM, HR 95. NO C/O CARDIAC DISTRESS VOICED OUT AT THIS TIME. GTUBE IN PLACE AND INTACT, WITH NEPRO FEEDING RUNNING AT 52ML/HR. IV ACCESS IN SURYA PICC, INTACT AND PATENT WITH 1/2 NS INFUSING AT 75ML/HR. SAFETY MEASURES IN PLACE: BED IN LOWEST AND LOCKED POSITION, SIDE RAILS UPX2, BED ALARM ON, KEPT HOB ELEVATED, AND CALL LIGHT WITHIN REACH. WILL CONTINUE TO MONITOR PT. Addendum: 06/19/22 at 1627 by WILFREDO LAMBERT RN CORRECTION TO IV INFUSING DELETE 75ML/HR ADDENDUM PT IS WAS ON 1/2 NS INFUSING AT 90ML/HR.
[2022-06-19 07:48] LABS: BASOPHILS % (AUTO) 0.4 % (0.0-2.0); EOSINOPHILS % (AUTO) 1.8 % (0.0-6.0); HEMATOCRIT 27 % (39-51); HEMOGLOBIN 8.6 g/dL (13.5-17.5); LYMPHOCYTES # (AUTO) 0.6 K/uL (0.8-4.8); LYMPHOCYTES % (AUTO) 9.3 % (20.0-44.0); MEAN CORPUSCULAR HGB CONC 32 g/dl (31.0-36.0); MEAN CORPUSCULAR VOLUME 94 fL (80-96); MONOCYTES # (AUTO) 0.4 K/uL (0.1-1.30); MONOCYTES % (AUTO) 6.6 % (2.0-12.0); NEUTROPHILS # (AUTO) 5.6 K/uL (1.8-8.9); NEUTROPHILS % (AUTO) 81.9 % (43.0-81.0); PLATELET COUNT (AUTO) 271 K/uL (150-450); RED BLOOD CELL COUNT(AUTO) 2.88 MIL/uL (4.5-6.0); WHITE BLOOD COUNT (AUTO) 6.8 K/uL (4.3-11.0)
[2022-06-19 07:51] LABS: CALCIUM, SERUM 9.3 mg/dL (8.5-10.1); CREATININE 1.7 mg/dL (0.6-1.3); POTASSIUM 3.9 mmol/L (3.5-5.1)
[2022-06-19] MEDS: LEVETIRACETAM SOL (5 ML) 100 MG/ML UDC GT SCH ×2 (09:02→21:25)
[2022-06-19] MEDS: ESCITALOPRAM OXALATE (10 MG) 10 MG TABLET GT SCH (09:02)
[2022-06-19] MEDS: FERROUS SULFATE UDC 300 MG/5 ML UDC GT SCH (09:02)
[2022-06-19] MEDS: CHLORHEXIDINE GLUCONATE 15 ML UDC MM SCH ×3 (09:02→16:08)
[2022-06-19] MEDS: QUETIAPINE FUMARATE 25 MG TABLET PO SCH (09:02)
[2022-06-19] MEDS: MULTIVIT W/MINERALS 1 TAB TABLET GT SCH (09:02)
[2022-06-19] MEDS: LEVOTHYROXINE SODIUM 75 MCG TABLET GT SCH (09:02)
[2022-06-19] MEDS: LACOSAMIDE ORAL SOLN 50 MG/5 ML UDC GT SCH ×2 (09:02→21:46)
[2022-06-19] MEDS: SILVER SULFADIAZINE 50 GM JAR TP SCH (09:38)
[2022-06-19] MEDS: NEPRO 1,000 ML BOTTLE GT PRN (11:53)
--- NOTE | 2022-06-19 19:12 | NUR ---
SALT MANAGER CLOSING NOTE PT ASLEEP IN BED, EASILY AROUSED. PT IS ALERT AND NON-VERBAL. PT OPENS EYES TO STIMULI. ON O2 AT 2L/MIN VIA NASAL CANNULA, TOLERATING WELL. NO SOB NOTED. NOT IN ANY SIGN OF RESPIRATORY DISTRESS. ON TELE ADVENTURE GUIDE WITH CURRENT READING OF SINUS RHYTHM, HR 93. NO C/O CARDIAC DISTRESS VOICED OUT AT THIS TIME. GTUBE IN PLACE AND INTACT, WITH NEPRO FEEDING RUNNING AT 52ML/HR. IV ACCESS IN SURYA PICC, INTACT AND PATENT WITH 1/2 NS INFUSING AT 90ML/HR. VDIES CATH INTACT AND DRAINING WELL. ALL NEEDS ATTENDED. KEPT CLEAN AND COMFORTABLE. TURNED AND REPOSITIONED Q2HR AND NEEDED. SAFETY MEASURES IN PLACE: BED IN LOWEST AND LOCKED POSITION, SIDE RAILS UPX2, BED ALARM ON, KEPT HOB ELEVATED, AND CALL LIGHT WITHIN REACH. ENDORSED TO ASSOCIATE COUNSEL NURSE FOR COLLIN.
--- NOTE | 2022-06-19 20:06 | NUR ---
AUTOMATIC MOLD SANDER OPENING NOTE RECEIVED PT IN BED WITH EYES CLOSED BUT EASY TO AROUSED,NONVERBAL,ON 2L O2 VIA NC NIC WELL,NO SIGN SOB/DISTRESS NOTED,IV ACCESS SURYA PICC RUNNING 1/2 NS @ 90ML/HR, INTACT AND PATENT. G-TUBE IN PLACE RUNNING NEPRO @ 52 ML/HR, TOLERATING WELL.NO RESIDUAL NOTED, ASPIRATION PRECAUTIONS MAINTAINED. VIDES CATHETER IN PLACE DRAINING CLEAR YELLOW URINE OUTPUT BY GRAVITY. SAFETY PRECAUTIONS IN PLACE. BED IN LOWEST LOCKED POSITION, HOB ELEVATED, SIDE RAILS UP X3, AND CALL LIGHT AND TABLE WITHIN REACH.WILL CONTINUE TO MONITOR.
[2022-06-19 20:37] VITALS: BP 184/79
[2022-06-19] MEDS: QUETIAPINE FUMARATE 25 MG TABLET GT SCH (21:25)
[2022-06-20] MEDS: IV 1/2NS 1000 ML 1,000 ML IV SCH ×3 (00:13→18:16)
[2022-06-20 00:43] VITALS: BP 166/86
--- NOTE | 2022-06-20 06:28 | NUR ---
INFORMATION TECHNOLOGY DIRECTOR CLOSING NOTE;329 PT IN BED WITH EYES CLOSED BUT EASY TO AROUSED,NONVERBAL,ON 2L O2 VIA NC NIC WELL,NO SIGN SOB/DISTRESS NOTED,DUE MEDS GIVEN ORDER,ALL NEEDS ATTENDED,,IV ACCESS SURYA PICC RUNNING 1/2 NS @ 90ML/HR, INTACT AND PATENT. G-TUBE IN PLACE RUNNING NEPRO @ 52 ML/HR, TOLERATING WELL.NO RESIDUAL NOTED, ASPIRATION PRECAUTIONS MAINTAINED. VIDES CATHETER IN PLACE DRAINING CLEAR YELLOW URINE OUTPUT 1200ML SAFETY PRECAUTIONS IN PLACE. BED IN LOWEST LOCKED POSITION, HOB ELEVATED, SIDE RAILS UP X3, AND CALL LIGHT AND TABLE WITHIN REACH.WILL ENDORSED TO NEXT SHIFT.
[2022-06-20 06:45] LABS: BASOPHILS % (AUTO) 0.4 % (0.0-2.0); EOSINOPHILS % (AUTO) 1.1 % (0.0-6.0); HEMATOCRIT 27 % (39-51); LYMPHOCYTES # (AUTO) 0.8 K/uL (0.8-4.8); LYMPHOCYTES % (AUTO) 10.5 % (20.0-44.0); MEAN CORPUSCULAR HGB CONC 33 g/dl (31.0-36.0); MEAN CORPUSCULAR VOLUME 88 fL (80-96); MONOCYTES # (AUTO) 0.4 K/uL (0.1-1.30); MONOCYTES % (AUTO) 5.7 % (2.0-12.0); NEUTROPHILS # (AUTO) 6.1 K/uL (1.8-8.9); NEUTROPHILS % (AUTO) 82.3 % (43.0-81.0); PLATELET COUNT (AUTO) 310 K/uL (150-450); RED BLOOD CELL COUNT(AUTO) 3.11 MIL/uL (4.5-6.0); WHITE BLOOD COUNT (AUTO) 7.4 K/uL (4.3-11.0)
[2022-06-20 07:33] LABS: CALCIUM, SERUM 9.8 mg/dL (8.5-10.1); CREATININE 1.5 mg/dL (0.6-1.3); MAGNESIUM 2.4 mg/dL (1.8-2.4); PHOSPHORUS 3.6 mg/dL (2.5-4.9)
--- NOTE | 2022-06-20 07:45 | NUR ---
DIFFUSION FURNACE OPERATOR OPENING NOTES RECEIVED PT LYING AWAKE IN BED, NONVERBAL AND RESPONDS TO VERBAL AND TACTILE STIMULI. ON 2L O2 VIA NC, BREATHING EVENLY AND UNLABORED. NO SIGN SOB/DISTRESS NOTED. IV ACCESS SURYA PICC RUNNING 1/2 NS @ 90ML/HR, INTACT AND PATENT. G-TUBE IN PLACE RUNNING NEPRO @ 52 ML/HR, TOLERATING WELL. NO RESIDUAL NOTED, ASPIRATION PRECAUTIONS MAINTAINED. VIDES CATHETER IN PLACE DRAINING CLEAR YELLOW URINE OUTPUT. SAFETY PRECAUTIONS IN PLACE. BED IN LOWEST LOCKED POSITION, HOB ELEVATED, SIDE RAILS UP X3, AND CALL LIGHT AND TABLE WITHIN REACH. WILL CONTINUE TO MONITOR.
[2022-06-20 08:00] VITALS: BP 160/75
[2022-06-20] MEDS: ESCITALOPRAM OXALATE (10 MG) 10 MG TABLET GT SCH (08:46)
[2022-06-20] MEDS: LACOSAMIDE ORAL SOLN 50 MG/5 ML UDC GT SCH ×2 (08:46→21:20)
[2022-06-20] MEDS: CHLORHEXIDINE GLUCONATE 15 ML UDC MM SCH ×3 (08:46→16:33)
[2022-06-20] MEDS: MULTIVIT W/MINERALS 1 TAB TABLET GT SCH (08:47)
[2022-06-20] MEDS: QUETIAPINE FUMARATE 25 MG TABLET PO SCH (08:47)
[2022-06-20] MEDS: LEVOTHYROXINE SODIUM 75 MCG TABLET GT SCH (08:47)
[2022-06-20] MEDS: SILVER SULFADIAZINE 50 GM JAR TP SCH (08:48)
[2022-06-20] MEDS: FERROUS SULFATE UDC 300 MG/5 ML UDC GT SCH (08:48)
[2022-06-20] MEDS: LEVETIRACETAM SOL (5 ML) 100 MG/ML UDC GT SCH ×2 (08:48→21:20)
--- NOTE | 2022-06-20 09:10 | NUR ---
RN NOTE Received critical value from December from lab, sodium is 157. Dr Laurent notified. No new orders at this time.
[2022-06-20 12:00] VITALS: BP 167/78
[2022-06-20] MEDS: hydrALAZINE HCL 25 MG TABLET GT PRN ×2 (13:38→21:21)
--- NOTE | 2022-06-20 16:00 | NUR ---
RN NOTES PER DOCTOR JOSLYN, WEAN OFF 02. NOW AT ROOM AIR, 02 SATURATION READING 96%. WILL CONTINUE TO MONITOR.
--- NOTE | 2022-06-20 18:26 | NUR ---
RN NOTE Swelling on Left hand noted, patient has SURYA PICC line infusing 1/2 NS at 125 ml/hr. Left hand elevated, swelling noted to decrease.
--- NOTE | 2022-06-20 19:30 | NUR ---
MS RN CLOSING NOTE Patient in bed, resting. Awake but non-verbal. Stable on room air, breathing evenly and unlabored. No SOB or s/s of distress noted. IV access on SURYA PICC line infusing NS at 125 ml/hr. G-tube in place running Nepro at 52 ml/hr. On external monitoring showing SR, HR on the 90's. Patient kept clean and dry. Due meds given. Turned and repositioned, as tolerated. Wound care done, as ordered. Safety precautions in place: bed in low, locked position; siderails up x 2; call light within reach. Will endorse to night baker nurse for COLLIN.
--- NOTE | 2022-06-20 19:31 | NUR ---
RN OPENING NOTES RECEIVED PT LAYING IN BED, EYES CLOSED. NON-VERBAL BUT OPENS EYES TO VERBAL STIMULI. ON RA AND TOLERATING WELL. NO SOB NOTED. NO S/SX OF RESPIRATORY DISTRESS NOTED. TELE MONITOR DETECTS SINUS RHYTHM WITH RATE OF 80s. IV ACCESS IN SURYA PICC LINE 1/2 NS @ 125 ML/HR. SAFETY PRECAUTIONS IN PLACE: BED IN LOWEST, LOCKED POSITION, SIDERAILS UPx2, AND BRAKES ON. TABLE AND CALL LIGHT WITHIN REACH. ALL NEEDS MET AT THIS TIME.
[2022-06-20 20:00] VITALS: BP 167/83
[2022-06-20] MEDS: QUETIAPINE FUMARATE 25 MG TABLET GT SCH (21:20)
--- NOTE | 2022-06-20 21:21 | NUR ---
RN NOTES ADMINISTERED HYDRALAZINE FOR HYPERTENSION OF 167/83 AND RATE OF 138.
[2022-06-21] VITALS: BP 163/73
[2022-06-21] MEDS: TRAMADOL HCL 50 MG TABLET GT PRN (01:15)
--- NOTE | 2022-06-21 01:15 | NUR ---
RN NOTES ADMINISTERED TRAMADOL FOR PAIN SCALED BY FLACC SCALE. VS WNL.
[2022-06-21] MEDS: IV 1/2NS 1000 ML 1,000 ML IV SCH ×2 (03:21→11:25)
[2022-06-21 06:53] LABS: BASOPHILS % (AUTO) 0.1 % (0.0-2.0); EOSINOPHILS % (AUTO) 0.3 % (0.0-6.0); HEMATOCRIT 28 % (39-51); HEMOGLOBIN 9.3 g/dL (13.5-17.5); LYMPHOCYTES # (AUTO) 0.7 K/uL (0.8-4.8); LYMPHOCYTES % (AUTO) 6.5 % (20.0-44.0); MEAN CORPUSCULAR HGB CONC 34 g/dl (31.0-36.0); MEAN CORPUSCULAR VOLUME 88 fL (80-96); MONOCYTES # (AUTO) 0.5 K/uL (0.1-1.30); MONOCYTES % (AUTO) 4.7 % (2.0-12.0); NEUTROPHILS # (AUTO) 9.5 K/uL (1.8-8.9); NEUTROPHILS % (AUTO) 88.4 % (43.0-81.0); PLATELET COUNT (AUTO) 364 K/uL (150-450); RED BLOOD CELL COUNT(AUTO) 3.17 MIL/uL (4.5-6.0); WHITE BLOOD COUNT (AUTO) 10.8 K/uL (4.3-11.0)
[2022-06-21 07:05] LABS: CALCIUM, SERUM 10.1 mg/dL (8.5-10.1); CREATININE 1.5 mg/dL (0.6-1.3); MAGNESIUM 2.6 mg/dL (1.8-2.4); POTASSIUM 3.9 mmol/L (3.5-5.1)
--- NOTE | 2022-06-21 07:24 | NUR ---
RN CLOSING NOTES PT LAYING IN BED, EYES CLOSED. NON-VERBAL BUT OPENS EYES TO VERBAL STIMULI. ON RA AND TOLERATING WELL. NO SOB NOTED. NO S/SX OF RESPIRATORY DISTRESS NOTED. TELE MONITOR DETECTS SINUS RHYTHM AND SINUS TACHYCARDIA WITH RATE OF 80-130s. IV ACCESS IN SURYA PICC LINE 1/2 NS @ 125 ML/HR. ALL ORDERS CARRIED OUT. ALL NEEDS MET. PT KEPT CLEAN AND DRY. SAFETY PRECAUTIONS IN PLACE: BED IN LOWEST, LOCKED POSITION, SIDERAILS UPx2, AND BRAKES ON. TABLE AND CALL LIGHT WITHIN REACH. WILL ENDORSE TO ONCOMING SHIFT FOR COLLIN.
--- NOTE | 2022-06-21 07:35 | NUR ---
RN OPENING NOTE PT LAYING IN BED, EYES OPEN NON-VERBAL, ON RA AND TOLERATING WELL. NO SOB NOTED. NO S/SX OF RESPIRATORY DISTRESS NOTED. NO RHONCHI OR RALES ON AUSCULTATION, TELE MONITOR DETECTS SINUS RHYTHM AND SINUS TACHYCARDIA WITH RATE OF 100. IV ACCESS IN SURYA PICC LINE 1/2 NS @ 125 ML/HR. ALL ORDERS CARRIED OUT. ALL NEEDS MET. PT KEPT CLEAN AND DRY. SAFETY PRECAUTIONS IN PLACE: BED IN LOWEST, LOCKED POSITION, SIDERAILS UPx2, AND BRAKES ON. TABLE AND CALL LIGHT WITHIN REACH. MONITOR AND ASSIST PT.
[2022-06-21 08:15] VITALS: BP 164/88
[2022-06-21] MEDS: CHLORHEXIDINE GLUCONATE 15 ML UDC MM SCH ×3 (08:53→17:18)
[2022-06-21] MEDS: ESCITALOPRAM OXALATE (10 MG) 10 MG TABLET GT SCH (08:54)
[2022-06-21] MEDS: LEVOTHYROXINE SODIUM 75 MCG TABLET GT SCH (08:54)
[2022-06-21] MEDS: LEVETIRACETAM SOL (5 ML) 100 MG/ML UDC GT SCH ×2 (08:54→21:01)
[2022-06-21] MEDS: MULTIVIT W/MINERALS 1 TAB TABLET GT SCH (08:54)
[2022-06-21] MEDS: FERROUS SULFATE UDC 300 MG/5 ML UDC GT SCH (08:55)
[2022-06-21] MEDS: QUETIAPINE FUMARATE 25 MG TABLET PO SCH (08:55)
[2022-06-21] MEDS: SILVER SULFADIAZINE 50 GM JAR TP SCH (09:06)
[2022-06-21] MEDS: LACOSAMIDE ORAL SOLN 50 MG/5 ML UDC GT SCH ×2 (09:10→21:01)
--- NOTE | 2022-06-21 09:30 | NUR ---
RN NOTE- DURING MED PASS IT WAS NOTED G-TUBE WAS CLOGGED. ATTEMPTED VARIOUS MEANS TO MAKE PATENT. EVENTUALLY G TUBE BECAME PATENT, PLACEMENT CHECKED, MEDS GIVEN, TOLERATED WELL.
[2022-06-21 12:12] VITALS: BP 140/72
[2022-06-21] MEDS ORDERED: IV D5W 1,000 ML IV SCH (12:30)
[2022-06-21] MEDS ORDERED: LEVE100S GT (14:02)
[2022-06-21] MEDS ORDERED: LACO10SO GT (14:02)
[2022-06-21] MEDS: NEPRO 1,000 ML BOTTLE GT PRN (14:39)
[2022-06-21] MEDS ORDERED: JEVITY 1.2 CAL 1,000 ML BOTTLE GT PRN (15:30)
[2022-06-21] MEDS ORDERED: PROSOURCE / PROSTAT (PYXIS) 30 ML UDC GT SCH (15:30)
[2022-06-21 16:38] VITALS: BP 148/74
--- NOTE | 2022-06-21 18:38 | NUR ---
RN NOTE / CLOSING / PT TO DC TONIGHT TO SNF. WOUND CAR COMPLETED. NEEDS ATTENDED. JUDY RAILS UP, BD LOCKED. VS STABLE. AWAITING DC
--- NOTE | 2022-06-21 19:30 | NUR ---
TICKET MACHINE OPERATOR OPENING NOTE PATIENT IN BED WITH EYES CLOSED, PT NON-VERBAL. PT STABLE ON RA, NO S/S OF DISTRESS OR SOB NOTED, BREATHING EVEN AND UNLABORED. PATIENT ON EXTERNAL NUCLEAR CARDIOLOGY TECHNOLOGIST READING SINUS RHYTHM, HR: 77. PATIENT ON GTUBE FEEDING INFUSING NEPRO @ 52 ML/HR. SURYA PICC LINE INTACT AND INFUSING D5W @ 100 ML/HR. PT FOR DISCHARGE, REVENUE RESEARCH ANALYST WAS SUPPOSED TO BE AT 1700, WILL CALL [facility] TO CONFIRM PICKUP. PER DAYSHIFT RN [facility], PT TO GO WITH VIDES AND SURYA PICC LINE. PER DAYSHIFT RN, FACILITY ALSO WANTS NEPRO TUBE FEEDING TO BE SENT WITH PATIENT. SAFETY MEASURES IN PLACE: CALL LIGHT WITHIN REACH, SIDE RAILS UP X 3, BED LOCKED IN LOWEST POSITION, HOB ELEVATED, BED ALARM ON. WILL CONTINUE TO MONITOR PATIENT
--- NOTE | 2022-06-21 20:00 | NUR ---
RECORDS ANALYSIS MANAGER NOTE CALLED [facility] AND THEY STATED NO DEBUG TECHNICIAN HAS BEEN ARRANGED FOR THIS PATIENT. CHARGE NURSE TO CONTACT CLINICAL DIETICIAN FOR MORE INFO AND ARRANGE TRANSPORT. WILL CONTINUE TO FOLLOW UP
[2022-06-21 20:30] VITALS: BP 142/86
[2022-06-21] MEDS: QUETIAPINE FUMARATE 25 MG TABLET GT SCH (21:01)
--- NOTE | 2022-06-21 22:11 | NUR ---
ARM REST BUILDEROCEAN EXPORT ACCOUNT MANAGER NOTE PATIENT PICKED UP FOR DISCHARGE VIA AMBULANCE BACK TO FACILITY. PT NON-VERBAL BUT OPENS EYES SPONTANEOUSLY. PT STABLE ON RA, NO S/S OF DISTRESS OR SOB NOTED, BREATHING EVEN AND UNLABORED. VIDES CATHETER IN PLACE, REMOVED 550 ML OUTPUT OF YELLOW URINE. SURYA PICC LINE INTACT. GTUBE INTACT AND DRESSING CLEAN, DRY AND INTACT. PATIENT DISCHARGE PAPERS AND BELONGINGS GIVEN TO EMT'S. TELE MONITOR REMOVED. PATIENT TAKEN IN STABLE CONDITION
== END 2022-06-21 23:48 | DRG 870 ==
LOC: ER 02:36 → TRANSITION 04:45 → TELE1 08:49 → ICU 06-09 07:18 → TELE 06-15 18:00
PROVIDERS: ADMIT Nurse Practitioner Acute Care; ATTEND Student in an Organized Health Care Education/Training Program
PROC: 05HC33Z Insertion of Infusion Device into Left Basilic Vein, Percutaneous Approach (ICD-10-PCS; 2022-06-07)
PROC: 05HC33Z Insertion of Infusion Device into Left Basilic Vein, Percutaneous Approach (ICD-10-PCS; 2022-06-07)
PROC: 5A1955Z Respiratory Ventilation, Greater than 96 Consecutive Hours (ICD-10-PCS; principal; 2022-06-09)
PROC: 0BH18EZ Insertion of Endotracheal Airway into Trachea, Via Natural or Artificial Opening Endoscopic (ICD-10-PCS; 2022-06-09)
PROC: 02HV33Z Insertion of Infusion Device into Superior Vena Cava, Percutaneous Approach (ICD-10-PCS; 2022-06-09)
PROC: B548ZZA Ultrasonography of Superior Vena Cava, Guidance (ICD-10-PCS; 2022-06-09)
DX: A41.9 Sepsis, unspecified organism (principal); N17.0 Acute kidney failure with tubular necrosis; E43 Unspecified severe protein-calorie malnutrition; J96.00 Acute respiratory failure, unspecified whether with hypoxia or hypercapnia; J69.0 Pneumonitis due to inhalation of food and vomit; G92.8 Other toxic encephalopathy; N39.0 Urinary tract infection, site not specified; G04.1 Tropical spastic paraplegia; E44.0 Moderate protein-calorie malnutrition; F73 Profound intellectual disabilities; E87.1 Hypo-osmolality and hyponatremia; E87.0 Hyperosmolality and hypernatremia; J98.11 Atelectasis; K94.23 Gastrostomy malfunction; Z16.12 Extended spectrum beta lactamase (ESBL) resistance; Z20.822 Contact with and (suspected) exposure to COVID-19; G40.901 Epilepsy, unspecified, not intractable, with status epilepticus; I34.0 Nonrheumatic mitral (valve) insufficiency; K29.70 Gastritis, unspecified, without bleeding; M24.561 Contracture, right knee; M24.562 Contracture, left knee; K21.9 Gastro-esophageal reflux disease without esophagitis; R13.10 Dysphagia, unspecified; N18.9 Chronic kidney disease, unspecified; E88.09 Other disorders of plasma-protein metabolism, not elsewhere classified; G80.9 Cerebral palsy, unspecified; G31.84 Mild cognitive impairment of uncertain or unknown etiology; E03.9 Hypothyroidism, unspecified; E11.22 Type 2 diabetes mellitus with diabetic chronic kidney disease; E83.39 Other disorders of phosphorus metabolism; D69.6 Thrombocytopenia, unspecified; E86.1 Hypovolemia; N31.9 Neuromuscular dysfunction of bladder, unspecified; E87.5 Hyperkalemia; E87.6 Hypokalemia; Z79.51 Long term (current) use of inhaled steroids; Z79.83 Long term (current) use of bisphosphonates; Z79.899 Other long term (current) drug therapy; M62.50 Muscle wasting and atrophy, not elsewhere classified, unspecified site; L89.896 Pressure-induced deep tissue damage of other site; L89.526 Pressure-induced deep tissue damage of left ankle; D64.9 Anemia, unspecified; E83.41 Hypermagnesemia; N28.1 Cyst of kidney, acquired; X58.XXXA Exposure to other specified factors, initial encounter; Y92.129 Unspecified place in nursing home as the place of occurrence of the external cause; Y83.3 Surgical operation with formation of external stoma as the cause of abnormal reaction of the patient, or of later complication, without mention of misadventure at the time of the procedure; Y82.8 Other medical devices associated with adverse incidents; Y92.230 Patient room in hospital as the place of occurrence of the external cause; S60.521A Blister (nonthermal) of right hand, initial encounter; Y92.9 Unspecified place or not applicable; T50.905A Adverse effect of unspecified drugs, medicaments and biological substances, initial encounter; Y92.239 Unspecified place in hospital as the place of occurrence of the external cause; R23.8 Other skin changes; B96.1 Klebsiella pneumoniae [K. pneumoniae] as the cause of diseases classified elsewhere; Y95 Nosocomial condition
CPT/HCPCS: 31720; 36410; 36415; 36569; 36600; 70450-TC; 71045-TC; 76770-TC; 80048-TC; 80076-TC; 80202-TC; 81001; 82570-TC; 82803-TC; 82962-TC; 83605-TC; 83735-TC; 84100-TC; 84300-TC; 84478-TC; 84484-TC; 85025-TC; 85730-TC; 86803; 87040-TC; 87070-TC; 87081-TC; 87086-TC; 87186-TC; 87806; 94002-TC; 94003-TC; 94760-TC; 94799-TC; 95819-TC; 99082-TC; A4217; A6253; A6403; C9803; G0378; J0696; J1200; J1720; J1940; J1953; J2060; J2405; J2543; J2930; J3370; J3480; J3490; J7030; J7040; J7050; J7060; J7070

== ENCOUNTER 2022-08-16 09:51 | Outpatient (CLI) | payer MEDICARE, OTHER ==
[~2022-08-16 09:51] MED LIST: ACET-868 GT; ALEN70TA80 GT; ALLA266C2 TP; AMIN30LI2 GT; ATOR40TA GT; BISA10SU11 RC; CALA177L16 TP; CALC500T52 GT; CHLO473M5 MM; CLOR3.755 GT; DICL100G34 TP; DIME532L3 TP; ERGO500093 GT; ESCI10TA GT; FERR300L GT; GUAI100S11 GT; HYDR-3642 GT; HYDR-4076 GT; HYDR28OI2 TP; IBUP-1953 GT; IPRA3AMP23 IH; LACO10SO GT; LACT-209 GT; LACT10SO3 GT; LEVE100S GT; LEVO75TA7 GT; LORA-259 GT; LORA10TA7 GT; MELA5TAB GT; MINE105O TP; MULT-447 GT; NA P133E RC; OMEG-88 GT; ONDA-97 GT; POLY15DR40 EACHEYE; POLY17PO4 GT; QUET25TA GT; QUET50TA PO; TRAM50TA2 GT; TRIA80OI TP
[2022-08-16] MEDS ORDERED: COLLAGENASE 5 GM TUBE UD TP ONE (10:17)
== END 2022-08-16 23:59 | disposition home health service (06) ==
LOC: WOU 09:51
PROVIDERS: ATTEND Podiatrist Foot & Ankle Surgery
DX: L89.894 Pressure ulcer of other site, stage 4 (principal); L89.610 Pressure ulcer of right heel, unstageable; M24.562 Contracture, left knee; M24.561 Contracture, right knee; R53.2 Functional quadriplegia; E23.2 Diabetes insipidus; Z79.02 Long term (current) use of antithrombotics/antiplatelets
CPT/HCPCS: 11043

== ENCOUNTER 2022-08-30 09:06 | Outpatient (CLI) | payer MEDICARE, OTHER ==
[2022-08-30] MEDS ORDERED: COLLAGENASE 5 GM TUBE UD TP ONE (09:44)
== END 2022-08-30 23:59 | disposition home health service (06) ==
LOC: WOU 09:06
PROVIDERS: ATTEND Podiatrist Foot & Ankle Surgery
DX: L89.894 Pressure ulcer of other site, stage 4 (principal); L89.610 Pressure ulcer of right heel, unstageable; L89.890 Pressure ulcer of other site, unstageable; M24.562 Contracture, left knee; M24.561 Contracture, right knee; R53.2 Functional quadriplegia; Z79.02 Long term (current) use of antithrombotics/antiplatelets
CPT/HCPCS: 11043

== ENCOUNTER 2022-09-13 10:00 | Outpatient (CLI) | payer MEDICARE, OTHER ==
[2022-09-13] MEDS ORDERED: BACI/NEOM/POLY B OINT PKT 1 UDPKT PACKET ONE (11:00)
[2022-09-13] MEDS ORDERED: COLLAGENASE 5 GM TUBE UD TP ONE ×2 (11:04)
== END 2022-09-13 23:59 | disposition home health service (06) ==
LOC: WOU 10:00
PROVIDERS: ATTEND Podiatrist Foot & Ankle Surgery
DX: L89.894 Pressure ulcer of other site, stage 4 (principal); L89.613 Pressure ulcer of right heel, stage 3; M24.562 Contracture, left knee; M24.561 Contracture, right knee; R53.2 Functional quadriplegia; E10.9 Type 1 diabetes mellitus without complications; Z79.02 Long term (current) use of antithrombotics/antiplatelets
CPT/HCPCS: 11042; 11043

== ENCOUNTER 2022-09-27 10:14 | Outpatient (CLI) | payer MEDICARE, OTHER ==
[2022-09-27] MEDS ORDERED: LIDOCAINE SOLN 4% 50 ML BOTTLE ONE (10:47)
[2022-09-27] MEDS ORDERED: COLLAGENASE 5 GM TUBE UD TP ONE (10:59)
== END 2022-09-27 23:59 | disposition home health service (06) ==
LOC: WOU 10:14
PROVIDERS: ATTEND Podiatrist Foot & Ankle Surgery
DX: L89.614 Pressure ulcer of right heel, stage 4 (principal); L89.894 Pressure ulcer of other site, stage 4; M24.562 Contracture, left knee; M24.561 Contracture, right knee; R53.2 Functional quadriplegia
CPT/HCPCS: 11042; 11043

== ENCOUNTER 2022-10-11 10:29 | Outpatient (CLI) | payer MEDICARE, OTHER ==
[2022-10-11] MEDS ORDERED: COLLAGENASE 5 GM TUBE UD TP ONE (11:04)
== END 2022-10-11 23:59 | disposition home health service (06) ==
LOC: WOU 10:29
PROVIDERS: ATTEND Podiatrist Foot & Ankle Surgery
DX: L89.614 Pressure ulcer of right heel, stage 4 (principal); L89.894 Pressure ulcer of other site, stage 4; R53.2 Functional quadriplegia; M24.562 Contracture, left knee; M24.561 Contracture, right knee; E23.2 Diabetes insipidus; I10 Essential (primary) hypertension
CPT/HCPCS: 11042; 11043

== ENCOUNTER 2022-10-22 09:16 | Outpatient (CLI) | payer MEDICARE, OTHER ==
[~2022-10-22 09:16] MED LIST changes: +LIDOCAINE SOLN 4% 50 ML BOTTLE ONE
[2022-10-22] MEDS ORDERED: COLLAGENASE 5 GM TUBE UD TP ONE (09:17)
== END 2022-10-22 23:59 | disposition home health service (06) ==
LOC: WOU 09:16
PROVIDERS: ATTEND Podiatrist Foot & Ankle Surgery
DX: L89.614 Pressure ulcer of right heel, stage 4 (principal); L89.894 Pressure ulcer of other site, stage 4; R53.2 Functional quadriplegia; M24.562 Contracture, left knee; M24.561 Contracture, right knee; E23.2 Diabetes insipidus; G11.4 Hereditary spastic paraplegia
CPT/HCPCS: 11042; 11043

== ENCOUNTER 2022-11-08 09:30 | Outpatient (CLI) | payer MEDICARE, OTHER ==
[~2022-11-08 09:30] MED LIST changes: -LIDOCAINE SOLN 4% 50 ML BOTTLE ONE; +QUET50TA GT; -QUET50TA PO
[2022-11-08] MEDS ORDERED: LIDOCAINE SOLN 4% 50 ML BOTTLE ONE (09:47)
[2022-11-08] MEDS ORDERED: COLLAGENASE 5 GM TUBE UD TP ONE (10:12)
== END 2022-11-08 23:59 | disposition home health service (06) ==
LOC: WOU 09:30
PROVIDERS: ATTEND Podiatrist Foot & Ankle Surgery
DX: L89.614 Pressure ulcer of right heel, stage 4 (principal); L89.894 Pressure ulcer of other site, stage 4; R53.2 Functional quadriplegia; M24.562 Contracture, left knee; M24.561 Contracture, right knee; E23.2 Diabetes insipidus
CPT/HCPCS: 11043

== ENCOUNTER 2022-11-14 13:44 | Emergency (ER) | payer MEDICARE, OTHER ==
[~2022-11-14] VITALS: Ht 172.7 cm; Wt 79.4 kg
--- NOTE | 2022-11-14 14:09 | NUR ---
DR. CAMPBELL AT BEDSIDE
--- NOTE | 2022-11-14 14:15 | NUR ---
nimco established. 20g r fa
--- NOTE | 2022-11-14 14:16 | NUR ---
blood sample and cultures collected and sent to lab
--- NOTE | 2022-11-14 14:20 | NUR ---
xray at bedside
--- NOTE | 2022-11-14 14:22 | NUR ---
MOVE SHEET SUBMITTED.
[2022-11-14 14:30] LABS: BASOPHILS % (AUTO) 0.5 % (0.0-2.0); EOSINOPHILS % (AUTO) 2.4 % (0.0-6.0); HEMATOCRIT 29 % (39-51); HEMOGLOBIN 9.7 g/dL (13.5-17.5); LYMPHOCYTES # (AUTO) 0.8 K/uL (0.8-4.8); LYMPHOCYTES % (AUTO) 13.7 % (20.0-44.0); MEAN CORPUSCULAR HGB CONC 33 g/dl (31.0-36.0); MEAN CORPUSCULAR VOLUME 83 fL (80-96); MONOCYTES # (AUTO) 0.7 K/uL (0.1-1.30); MONOCYTES % (AUTO) 12.6 % (2.0-12.0); NEUTROPHILS # (AUTO) 3.9 K/uL (1.8-8.9); NEUTROPHILS % (AUTO) 70.8 % (43.0-81.0); PLATELET COUNT (AUTO) 262 K/uL (150-450); RED BLOOD CELL COUNT(AUTO) 3.54 MIL/uL (4.5-6.0); WHITE BLOOD COUNT (AUTO) 5.5 K/uL (4.3-11.0)
[2022-11-14] MEDS ORDERED: VANCOMYCIN 1 GM in IV D5W 250 ML IV ONE (14:30)
[2022-11-14] MEDS ORDERED: CEFEPIME 1 GM in IV D5W 50 ML IV ONE (14:30)
[2022-11-14 14:53] LABS: ALANINE AMINOTRANSFERASE 19 U/L (12-78); ALBUMIN 2.9 g/dL (3.4-5.0); ALKALINE PHOSPHATASE 102 U/L (46-116); ASPARTATE AMINOTRANSFERASE 31 U/L (15-37); BILIRUBIN,DIRECT 0.1 mg/dL (0.0-0.2); BILIRUBIN,TOTAL 0.2 mg/dL (0.2-1.0); CALCIUM, SERUM 9.7 mg/dL (8.5-10.1); CARBON DIOXIDE 29 mmol/L (21-32); CHLORIDE 104 mmol/L (98-107); CREATININE 1.3 mg/dL (0.6-1.3); GLUCOSE 98 mg/dL (74-106); POTASSIUM 4.3 mmol/L (3.5-5.1); SODIUM SERUM 139 mmol/L (136-145); TOTAL PROTEIN, SERUM 6.6 g/dL (6.4-8.2); UREA NITROGEN, BLOOD 52 mg/dL (7-18)
[2022-11-14] MEDS ORDERED: ASPI-1169 GT (14:59)
[2022-11-14] MEDS ORDERED: CLOP75TA15 GT (14:59)
[2022-11-14] MEDS ORDERED: OMEP40CA21 GT (14:59)
[2022-11-14] MEDS ORDERED: LEVE500T9 GT (14:59)
--- NOTE | 2022-11-14 15:00 | NUR ---
URINE SAMPLE COLLECTED AND SENT TO LAB
[2022-11-14] MEDS ORDERED: IV NS 0.9% 250 ML IV ONE (15:08)
[2022-11-14] MEDS ORDERED: CT SWABBABLE VALVE TRANS SET 1 EA INFUS.SET MC ONE (15:08)
[2022-11-14] MEDS ORDERED: IOHEXOL-300 100 ML VIAL IV ONE (15:08)
--- NOTE | 2022-11-14 15:18 | NUR ---
PATIENT TAKEN TO CT BY CALLUM VIA YONIS
--- NOTE | 2022-11-14 16:12 | NUR ---
covid swab collected and sent to lab
[2022-11-14 16:16] LABS: BILIRUBIN,URINE NEGATIVE (NEGATIVE); COLOR,URINE YELLOW (YELLOW); LEUKOCYTE ESTERASE ,URINE 1+ (NEGATIVE); NITRITE, URINE NEGATIVE (NEGATIVE); PH,URINE 7.5 (5.0-8.0); PROTEIN,URINE 2+ mg/dl (NEGATIVE); UGLUCOSE NEGATIVE (NEGATIVE); UROBILINOGEN,URINE 0.2 EU/dL (0.2)
[2022-11-14] MEDS ORDERED: CIPR7.5D9 EACH EAR (16:19)
--- NOTE | 2022-11-14 16:31 | NUR ---
CALLED [facility] FOR TRANSPORT ETA 1800 PER SONAL.
--- NOTE | 2022-11-14 17:41 | NUR ---
CALLED NUMBER ON FILE 2 TIMES, TO INFORM OF RETURN AND NO ANSWER
--- NOTE | 2022-11-14 17:50 | NUR ---
LUAN CASAS RN INFORMED OF PT RETURNING TO BOARD & CARE.
[2022-11-14 18:06] LABS: BACTERIA,URINE Moderate /HPF (None Seen); SQUAMOUS EPITHELIAL CELL,UR Few /HPF (None Seen); WBC,URINE NONE SEEN /HPF (0-3)
--- NOTE | 2022-11-14 18:15 | NUR ---
PATIENT PICKED UP BY EMT FOR TRANSPORT
[2022-11-14 18:16] VITALS: BP 117/75
== END 2022-11-14 18:17 | disposition home health service (06) ==
LOC: ER 13:46
DX: H60.92 Unspecified otitis externa, left ear (principal); E23.2 Diabetes insipidus; E03.9 Hypothyroidism, unspecified; Z79.899 Other long term (current) drug therapy; Z79.82 Long term (current) use of aspirin; Z20.822 Contact with and (suspected) exposure to COVID-19
CPT/HCPCS: 99285; 70450; 96365; 71045; 87426; 96368; 93005; 70487; 84145; 85025; 80048; 87040 ×2; 87086; 83605; 80076; 81001; 36415; 84484; 85730; 83880; 82962; J3370; J7060; J7050; A4223; J0692; Q9967; C9803

== ENCOUNTER 2022-11-19 09:58 | Outpatient (CLI) | payer MEDICARE, OTHER ==
[~2022-11-19 09:58] MED LIST changes: -AMIN30LI2 GT; +ASPI-1169 GT; +CIPR7.5D9 EACH EAR; +CLOP75TA15 GT; -FERR300L GT; -HYDR-3642 GT; -LEVE100S GT; +LEVE500T9 GT; -OMEG-88 GT; +OMEP40CA21 GT
[2022-11-19] MEDS ORDERED: LIDOCAINE SOLN 4% 50 ML BOTTLE ONE (10:20)
[2022-11-19] MEDS ORDERED: SILVER NITRATE APPLICATOR 1 EA BOX ONE (10:42)
[2022-11-19] MEDS ORDERED: CADEXOMER IODINE UD 5 GM TUBE ONE (10:43)
== END 2022-11-19 23:59 | disposition home health service (06) ==
LOC: WOU 09:58
PROVIDERS: ATTEND Podiatrist Foot & Ankle Surgery
DX: L89.614 Pressure ulcer of right heel, stage 4 (principal); L89.894 Pressure ulcer of other site, stage 4; M24.562 Contracture, left knee; M24.561 Contracture, right knee; R53.2 Functional quadriplegia; E23.2 Diabetes insipidus
CPT/HCPCS: 11042; 11043

== ENCOUNTER 2022-12-06 10:05 | Outpatient (CLI) | payer MEDICARE, OTHER ==
[2022-12-06] MEDS ORDERED: CADEXOMER IODINE UD 5 GM TUBE ONE (11:05)
== END 2022-12-06 23:59 | disposition home health service (06) ==
LOC: WOU 10:05
PROVIDERS: ATTEND Podiatrist Foot & Ankle Surgery
DX: L89.894 Pressure ulcer of other site, stage 4 (principal); L89.614 Pressure ulcer of right heel, stage 4; M24.562 Contracture, left knee; M24.561 Contracture, right knee; R53.2 Functional quadriplegia
CPT/HCPCS: 11042

== ENCOUNTER 2023-01-07 10:00 | Outpatient (CLI) | payer MEDICARE, OTHER | END 2023-01-07 23:59 | disposition home health service (06) | LOC: WOU 10:00 | PROVIDERS: ATTEND Podiatrist Foot & Ankle Surgery | DX: L89.614 Pressure ulcer of right heel, stage 4 (principal); L89.894 Pressure ulcer of other site, stage 4; R53.2 Functional quadriplegia; M24.562 Contracture, left knee; M24.561 Contracture, right knee; E23.2 Diabetes insipidus | CPT/HCPCS: 11042; 11043 ==

== ENCOUNTER 2023-01-21 05:32 | Inpatient (IN) | payer MEDICARE, OTHER ==
[~2023-01-21] VITALS: Ht 167.6 cm; Wt 71.7 kg
[2023-01-21] VITALS (14 sets, daily range): BP systolic 149–172; BP diastolic 66–88
--- NOTE | 2023-01-21 00:10 | NUR ---
VALIUM 5MG IVP ONCE GIVEN NEEDED AND ORDERED FOR SEIZURES. WILL CONTINUE TO MONITOR
[2023-01-21] MEDS ORDERED: LORAZEPAM INJ 2 MG/ML VIAL ONE (05:35)
[2023-01-21] MEDS ORDERED: LEVETIRACETAM (500MG) 1,000 MG in IV NS 0.9% 100 ML IV STA (05:41)
[2023-01-21] MEDS ORDERED: LEVETIRACETAM (500MG) 500 MG/5 ML VIAL IV ONE (05:41)
--- NOTE | 2023-01-21 05:43 | NUR ---
ELY FROM [facility] C/O SEIZURE FOR OVER 10 MINUTES. PHONE CIRCUIT OPERATOR RECEIVED VERSED 10MG IM. GCS 10; RESPONSIVE TO PAIN WITHDRAWAL. ON NRB 15LPM SATTING 88%. CONNECTED PT TO POX AND MONITOR. SEIZURE SAFETY PRECAUTIONS IN PLACE.
--- NOTE | 2023-01-21 05:44 | NUR ---
RT AT PT'S BEDSIDE
--- NOTE | 2023-01-21 05:45 | NUR ---
R HAND #20G S/L & L HAND #20G S/L BLOOD COLLECTED AND SENT TO LAB
--- NOTE | 2023-01-21 05:47 | NUR ---
URINE COLLECTED AND SENT TO LAB. F/C INSERTED PAYMENT COLLECTOR
--- NOTE | 2023-01-21 05:49 | NUR ---
Note alphonsoone in EDM - 01/21/23 at 0558 by JANNET [id number] FROM [facility] C/O SEIZURE FOR OVER 10 MINUTES. CELL LINER RECEIVED VERSED 10MG IM. GCS 10; RESPONSIVE TO PAIN WITHDRAWAL. ON NRB 15LPM SATTING 88%. CONNECTED PT TO POX AND MONITOR. SEIZURE SAFETY PRECAUTIONS IN PLACE.
--- NOTE | 2023-01-21 05:54 | NUR ---
EKG DONE AT BEDSIDE
--- NOTE | 2023-01-21 05:55 | NUR ---
COVID ANTIGEN SWAB COLLECTED AND SENT TO LAB
--- NOTE | 2023-01-21 05:59 | NUR ---
PT TAKEN TO CT
[2023-01-21] MEDS ORDERED: LORAZEPAM INJ 2 MG/ML VIAL IVP ONE (06:00)
[2023-01-21] MEDS ORDERED: ACETAMINOPHEN 650 MG/SUPP.RECT RC ONE ×2 (06:07→06:30)
--- NOTE | 2023-01-21 06:12 | NUR ---
PT BACK FROM CT
[2023-01-21] MEDS ORDERED: VANCOMYCIN 1 GM /D5W 250 ML PB IV ONE (06:16)
--- NOTE | 2023-01-21 06:27 | NUR ---
INFLUENZA SWAB AND BLOOD CULTURES COLLECTED AND SENT TO LAB
[2023-01-21] MEDS ORDERED: VANCOMYCIN 1 GM in IV D5W 250 ML IV ONE (06:30)
[2023-01-21] MEDS ORDERED: PIPERACILLIN /TAZOBACTAM 3.375 G in IV D5W 50 ML IV ONE (06:30)
[2023-01-21 06:40] LABS: BASOPHILS % (AUTO) 0.2 % (0.0-2.0); HEMATOCRIT 36 % (39-51); LYMPHOCYTES # (AUTO) 0.6 K/uL (0.8-4.8); LYMPHOCYTES % (AUTO) 5.9 % (20.0-44.0); MEAN CORPUSCULAR HGB CONC 34 g/dl (31.0-36.0); MEAN CORPUSCULAR VOLUME 84 fL (80-96); MONOCYTES # (AUTO) 0.3 K/uL (0.1-1.30); MONOCYTES % (AUTO) 2.9 % (2.0-12.0); NEUTROPHILS # (AUTO) 9.4 K/uL (1.8-8.9); PLATELET COUNT (AUTO) 306 K/uL (150-450); RED BLOOD CELL COUNT(AUTO) 4.24 MIL/uL (4.5-6.0); WHITE BLOOD COUNT (AUTO) 10.3 K/uL (4.3-11.0)
[2023-01-21 06:42] LABS: BILIRUBIN,URINE NEGATIVE (NEGATIVE); COLOR,URINE YELLOW (YELLOW); LEUKOCYTE ESTERASE ,URINE 1+ (NEGATIVE); NITRITE, URINE POSITIVE (NEGATIVE); PH,URINE 8.5 (5.0-8.0); PROTEIN,URINE 3+ mg/dl (NEGATIVE); UGLUCOSE NEGATIVE (NEGATIVE); UROBILINOGEN,URINE 0.2 EU/dL (0.2)
[2023-01-21 06:49] LABS: ALBUMIN 3.4 g/dL (3.4-5.0); BILIRUBIN,DIRECT 0.1 mg/dL (0.0-0.2); BILIRUBIN,TOTAL 0.3 mg/dL (0.2-1.0); CALCIUM, SERUM 10.1 mg/dL (8.5-10.1); CREATININE 1.6 mg/dL (0.6-1.3); POTASSIUM 4.1 mmol/L (3.5-5.1); TOTAL PROTEIN, SERUM 7.7 g/dL (6.4-8.2)
[2023-01-21 06:57] LABS: BACTERIA,URINE MANY /HPF (None Seen); SQUAMOUS EPITHELIAL CELL,UR Few /HPF (None Seen); TRIPLE PHOSPHATE CRYSTAL,UR Many /HPF (None Seen); WBC,URINE 51-80 /HPF (0-3)
[2023-01-21] MEDS ORDERED: MEROPENEM 1 G in IV NS 0.9% 100 ML IV SCH (07:00)
--- NOTE | 2023-01-21 07:10 | NUR ---
received pt demetra rojas rn pt DROWSY AND STIFF WITH FIO2 6 L FC
[2023-01-21 07:25] LABS: CREATINE KINASE, TOTAL 216 U/L (39-308)
[2023-01-21] MEDS ORDERED: ZOLPIDEM TARTRATE 5 MG TABLET PO PRN (07:30)
[2023-01-21] MEDS ORDERED: IV NS 0.9% 1,000 ML BAG IV ONE ×2 (07:30→08:00)
[2023-01-21] MEDS ORDERED: ACETAMINOPHEN 325 MG TABLET PO PRN (07:30)
[2023-01-21] MEDS ORDERED: ONDANSETRON HCL/PF 4 MG/2 ML VIAL IVP PRN (07:30)
[2023-01-21] MEDS ORDERED: MAGNESIUM HYDROXIDE 30 ML UDC PO PRN (07:30)
[2023-01-21] MEDS ORDERED: LEVETIRACETAM (500MG) 1,000 MG in IV NS 0.9% 100 ML IV SCH ×2 (07:30→19:30)
[2023-01-21] MEDS ORDERED: Z GUARD REMEDY 4 OZ OINT TP PRN (07:30)
[2023-01-21] MEDS ORDERED: MAG HYDROX/AL HYDROX/SIMETH 30 ML UDC PO PRN (07:30)
--- NOTE | 2023-01-21 07:40 | NUR ---
PAGED RT FOR G
[2023-01-21 07:58] LABS: PHENOBARBITAL 1 ug/ml (15-39)
[2023-01-21 08:17] LABS: ABG BASE EXCESS -3.1 mmol/L; ABG OXYGEN SATURATION 88.8 % (92.0-98.5); ABG PCO2 40.5 mmHg (35.0-45.0); ABG PH 7.356 (7.350-7.450); ABG PO2 60.3 mmHg (75.0-100.0); AaDO2 120.5 mmHg; COHb 0.5 % (0.5-1.5); MetHb 0.3 % (0.0-1.5); O2Hb 88.1 % (94.0-97.0); SITE, ABG Right Radial; VENT MODE, BG 3 LPM NC
--- NOTE | 2023-01-21 08:20 | NUR ---
GT CLAMP AND INPLACE
[2023-01-21] MEDS ORDERED: PANTOPRAZOLE 40 MG VIAL IV SCH (09:00)
--- NOTE | 2023-01-21 09:16 | NUR ---
RESTING AT THIS TIME GENRALIZED STIFF
--- NOTE | 2023-01-21 10:32 | NUR ---
BED ASSIGNED, GOING TO 255. ADMITTING AWARE.
--- NOTE | 2023-01-21 10:50 | NUR ---
HAND OFF SIDDHARTH HERRERA TO ROOM 255 VIA MAKENNA
--- NOTE | 2023-01-21 11:00 | NUR ---
ICU/RN PT ADMITED FROM ER. DUE TO SEIZURES . NO SEIZURE ACTIVITIES AT THIS TIME.ON 2L N/C SAT O2-99%.BP 180/98.HR-89 SINUS RHYTHM. T-100.2.PT IS OPEN EYES ON PAIN STIMULATION.NON VERBAL.NOT FOLLOWS COMMAND.CONTRACTED.F/C IN PLACE DRAINING WITH CLOUDY YELLOW URINE..G-TUBE CLAMPED. SKIN INTACT.
[2023-01-21] MEDS: GLUCERNA 1.2 1,000 ML BOTTLE NG PRN (13:04)
[2023-01-21] MEDS ORDERED: DEXTROSE 50%-WATER 50 ML DISP.SYRIN IV PRN (16:00)
[2023-01-21] MEDS: BLOOD SUGAR DIAGNOSTIC 1 EACH STRIP IN SCH (18:16)
--- NOTE | 2023-01-21 18:22 | NUR ---
ICU/RN PM CARE PROVIDED.DUE MEDS ARE GIVEN ORDERED.PT RIGHT HEEL HAS DTI. PHOTO TAKEN WOUND NURSE NOTIFIED.
[2023-01-21] MEDS ORDERED: TRAMADOL HCL 50 MG TABLET GT PRN (19:00)
[2023-01-21] MEDS ORDERED: IBUPROFEN 400 MG TABLET GT PRN (19:00)
[2023-01-21] MEDS ORDERED: CALAMINE 118 ML BOTTLE TP PRN (19:00)
[2023-01-21] MEDS ORDERED: Medication Not On Formulary EA (Ipratropium/Albuterol Sulfate (Duoneb 2.5-0.5 Mg/3 Ml So IH PRN (19:00)
[2023-01-21] MEDS ORDERED: Medication Not On Formulary EA (Lactulose (Duphalac) 20 GM) GT PRN (19:00)
[2023-01-21] MEDS ORDERED: NA PHOS,M-B/NA PHOS,DI-BA 1 EA ENEMA RC PRN (19:00)
[2023-01-21] MEDS ORDERED: BISACODYL SUPP (10 MG) 10 MG/SUPP.RECT SUPP.RECT RC PRN (19:00)
[2023-01-21] MEDS ORDERED: LORAZEPAM 1 MG TABLET GT PRN (19:00)
[2023-01-21] MEDS ORDERED: DICLOFENAC TOPICAL 100 GM TUBE TP PRN (19:00)
[2023-01-21] MEDS ORDERED: LORATADINE 10 MG TABLET GT PRN (19:00)
[2023-01-21] MEDS ORDERED: GUAIFENESIN 300 MG/15 ML UDC GT PRN (19:00)
[2023-01-21] MEDS ORDERED: JEVITY 1.2 CAL 1,000 ML BOTTLE GT SCH (19:00)
[2023-01-21] MEDS ORDERED: IV 1/2NS 1000 ML 1,000 ML IV ONE (19:30)
--- NOTE | 2023-01-21 19:30 | NUR ---
PT AWAKE. OPENS EYES AND IS NOT ABLE TO FOLLOW COMMANDS DUE TO HISTORY OF MENTAL RETARDATION. PT ON 02 VIA NASAL CANNULA AT 3LPM. STEEL POST INSTALLER SHOWS SR AT THIS TIME. PT IS INCONTINENT AND HAS VIDES CATHETER IN PLACE DRAINING CLEAR YELLOW URINE. HAS IV ACCESS ON RT HAND #20G, LT HAND #20G, UMESH ML #18G. CURRENTLY ON 0.45% NS AT 75 ML/HR. SAFETY MEASURES IN PLACE, HOB ELEVATED, SIDE RAILS UP X3, CALL LIGHT WITHIN REACH. WILL CONTINUE PLAN OF CARE.
[2023-01-21] MEDS ORDERED: ZOLPIDEM TARTRATE 5 MG TABLET GT PRN (20:06)
[2023-01-21] MEDS ORDERED: MAG HYDROX/AL HYDROX/SIMETH 30 ML UDC GT PRN (20:06)
[2023-01-21] MEDS ORDERED: MAGNESIUM HYDROXIDE 30 ML UDC GT PRN (20:07)
--- NOTE | 2023-01-21 20:46 | NUR ---
PT PULLED OUT IV ACCESS ON RT HAND. PRESSURE APPLIED AND DRESSING PLACED.
[2023-01-21] MEDS ORDERED: LACOSAMIDE ORAL SOLN 50 MG/5 ML UDC GT SCH (21:00)
[2023-01-21] MEDS ORDERED: MEROPENEM 500 MG in IV NS 0.9% 50 ML IV SCH (21:00)
[2023-01-21] MEDS: PHENOBARBITAL 30 MG TABLET GT SCH (21:10)
[2023-01-21] MEDS: PIPERACILLIN /TAZOBACTAM 3.375 G in IV D5W 50 ML IV SCH (21:11)
[2023-01-21] MEDS: ATORVASTATIN 40 MG TABLET GT SCH (21:11)
[2023-01-21] MEDS: LEVETIRACETAM (500MG) 1,500 MG in IV NS 0.9% 100 ML IV SCH (21:11)
[2023-01-21] MEDS: CALCIUM CARBONATE (1250) 500 MG TABLET GT SCH (21:12)
[2023-01-21] MEDS: risperiDONE LIQUID 1 MG/ML ML GT SCH (21:12)
[2023-01-21] MEDS: hydrALAZINE HCL 25 MG TABLET GT PRN (21:14)
--- NOTE | 2023-01-21 21:30 | NUR ---
LACOSAMIDE ORAL SOLUTION 100MG DISCONTINUED ORDERED BY DR. MARTINEZ.
[2023-01-21] MEDS ORDERED: QUETIAPINE FUMARATE 25 MG TABLET GT SCH ×2 (22:00)
[2023-01-21] MEDS: LORAZEPAM INJ 2 MG/ML VIAL IV PRN (22:26)
--- NOTE | 2023-01-21 22:35 | NUR ---
Pt witnessed having localized seizure that lasted for 2 mins. Ativan 1mg IV given as needed and as ordered. Will continue to monitor.
[2023-01-21] MEDS ORDERED: DIAZEPAM 5 MG/ML 2 ML DISP.SYRIN ONE (23:57)
[2023-01-22] VITALS (24 sets, daily range): BP systolic 144–187; BP diastolic 68–95
[2023-01-22] MEDS ORDERED: DIAZEPAM 5 MG/ML 2 ML DISP.SYRIN IV ONE
[2023-01-22] MEDS: BLOOD SUGAR DIAGNOSTIC 1 EACH STRIP IN SCH ×4 (00:05→17:25)
[2023-01-22] MEDS: INSULIN REGULAR, HUMAN 100 UNIT/ML 3 ML VIAL SQ PRN ×2 (00:09→05:15)
[2023-01-22] MEDS: hydrALAZINE HCL 25 MG TABLET GT PRN (04:07)
[2023-01-22] MEDS: LORAZEPAM INJ 2 MG/ML VIAL IV PRN ×2 (04:08→07:28)
[2023-01-22] MEDS: PIPERACILLIN /TAZOBACTAM 3.375 G in IV D5W 50 ML IV SCH (04:24)
[2023-01-22 04:33] LABS: BASOPHILS % (AUTO) 0.3 % (0.0-2.0); HEMATOCRIT 31 % (39-51); HEMOGLOBIN 10.5 g/dL (13.5-17.5); LYMPHOCYTES # (AUTO) 0.4 K/uL (0.8-4.8); LYMPHOCYTES % (AUTO) 4.1 % (20.0-44.0); MEAN CORPUSCULAR HGB CONC 34 g/dl (31.0-36.0); MEAN CORPUSCULAR VOLUME 85 fL (80-96); MONOCYTES # (AUTO) 0.6 K/uL (0.1-1.30); MONOCYTES % (AUTO) 5.7 % (2.0-12.0); NEUTROPHILS # (AUTO) 9.5 K/uL (1.8-8.9); NEUTROPHILS % (AUTO) 89.9 % (43.0-81.0); PLATELET COUNT (AUTO) 238 K/uL (150-450); RED BLOOD CELL COUNT(AUTO) 3.66 MIL/uL (4.5-6.0); WHITE BLOOD COUNT (AUTO) 10.6 K/uL (4.3-11.0)
[2023-01-22 05:00] LABS: CALCIUM, SERUM 9.5 mg/dL (8.5-10.1); CREATININE 1.8 mg/dL (0.6-1.3); MAGNESIUM 2.3 mg/dL (1.8-2.4); PHOSPHORUS 2.8 mg/dL (2.5-4.9); POTASSIUM 3.6 mmol/L (3.5-5.1)
[2023-01-22] MEDS ORDERED: hydrALAZINE HCL IV 20 MG VIAL IV ONE (05:00)
[2023-01-22] MEDS ORDERED: VANCOMYCIN 1.25 GM in IV D5W 250 ML IV SCH (07:00)
--- NOTE | 2023-01-22 07:17 | NUR ---
PT AWAKE. OPENS EYES AND IS NOT ABLE TO FOLLOW COMMANDS DUE TO HISTORY OF MENTAL RETARDATION. PT ON 02 VIA NASAL CANNULA AT 3LPM. SIDING COREBOARD INSPECTOR SHOWS SR TO ST, HR FROM 80'S TO 120'S. PT IS INCONTINENT AND HAS VIDES CATHETER IN PLACE DRAINING CLEAR YELLOW URINE. HAS IV ACCESS ON LT HAND #20G, UMESH ML #18G. CURRENTLY ON 0.45% NS AT 75 ML/HR. SAFETY MEASURES MAINTAINED, HOB ELEVATED, SIDE RAILS UP X3, CALL LIGHT WITHIN REACH. WILL ENDORSE TO NEXT NURSE ON DUTY FOR CONTINUITY OF CARE.
--- NOTE | 2023-01-22 07:25 | NUR ---
ICU/RN PT HAS SEIZURES .ATIVAN IV GIVEN ORDERED. CONTINUE MONITORING.T-100.6 ,BP 181/69.SAT O2-97%.
--- NOTE | 2023-01-22 07:40 | NUR ---
WOUND CARE CONSULT: PT PRESENTS WITH CONTRACTED LOWER EXTREMITIES AND RT HEEL WOUND, SACRAL SCARRING AND FRAGILE SKIN, PRESENT ON ADMISSION. DR CAMARILLO TO BE CALLED THIS AM FOR DPM CONSULT. DISCUSSED SKIN PROTECTION WITH NURSING STAFF. FIRST STEP LOW AIRLOSS MATTRESS IS ON ORDER. IN AGREEMENT WITH PLAN OF CARE. Addendum: 01/22/23 at 0741 by YOVANNY CONTEH WNDNU Amended: Links added.
[2023-01-22] MEDS: CHLORHEXIDINE GLUCONATE 15 ML UDC MM SCH ×2 (08:13→16:36)
[2023-01-22] MEDS: PHENOBARBITAL 30 MG TABLET GT SCH ×2 (08:13→21:32)
[2023-01-22] MEDS: PANTOPRAZOLE 40 MG/PACK PACK GT SCH (08:13)
[2023-01-22] MEDS: ACETAMINOPHEN 650 MG/20.3 ML UDC GT PRN ×3 (08:13→20:27)
[2023-01-22] MEDS: ASPIRIN 81 MG TAB.CHEW GT SCH (08:14)
[2023-01-22] MEDS: CLOPIDOGREL BISULFATE 75 MG TABLET GT SCH (08:14)
[2023-01-22] MEDS: LEVOTHYROXINE SODIUM 75 MCG TABLET GT SCH (08:14)
[2023-01-22] MEDS: ESCITALOPRAM OXALATE (10 MG) 10 MG TABLET GT SCH (08:14)
[2023-01-22] MEDS: LEVETIRACETAM (500MG) 1,500 MG in IV NS 0.9% 100 ML IV SCH (08:56)
[2023-01-22] MEDS ORDERED: CLORAZEPATE DIPOTASSIUM 3.75 MG TABLET GT SCH (09:00)
[2023-01-22] MEDS ORDERED: POLYETHYLENE GLYCOL 3350 17 GM POWD.PACK GT SCH ×2 (09:00)
[2023-01-22] MEDS ORDERED: Medication Not On Formulary EA (Quetiapine Fumarate (Seroquel) 50 MG) GT SCH (09:00)
[2023-01-22] MEDS ORDERED: LORAZEPAM 1 MG TABLET GT SCH ×2 (09:00)
[2023-01-22] MEDS ORDERED: LACOSAMIDE 200 MG in IV NS 0.9% 100 ML IV ONE ×2 (10:00→12:00)
--- NOTE | 2023-01-22 10:30 | NUR ---
ICU/RN PT HAD MULTIPLY SEIZURES THIS MORNING .MD NOTIFIED.NO INTUBATION NEEDED AT THIS TIME.
[2023-01-22] MEDS: HEPARIN SODIUM, PORCINE 5000 UNITS/1 ML VIAL SQ SCH ×2 (10:34→16:39)
[2023-01-22] MEDS: PIPERACILLIN /TAZOBACTAM 3.375 G in IV D5W 100 ML IV SCH ×2 (12:16→21:53)
[2023-01-22] MEDS ORDERED: NEOM1OIN15 TP (12:31)
[2023-01-22] MEDS ORDERED: OMEG1CAP PO (12:31)
[2023-01-22] MEDS ORDERED: HONE15GE TP (12:31)
[2023-01-22] MEDS ORDERED: FERR300L GT (12:31)
[2023-01-22] MEDS ORDERED: POVI3780 TP (12:31)
[2023-01-22] MEDS ORDERED: LACO10SO GT (12:31)
[2023-01-22] MEDS ORDERED: PETR18JE3 TP (12:31)
[2023-01-22] MEDS ORDERED: [UNRECOGNIZED DRUG - CODE] TP (12:31)
[2023-01-22] MEDS ORDERED: MICO1COM TP (12:31)
[2023-01-22] MEDS: IV 1/2NS 1000 ML 1,000 ML IV SCH (16:36)
[2023-01-22] MEDS: GLUCERNA 1.2 1,000 ML BOTTLE NG PRN (16:45)
--- NOTE | 2023-01-22 18:00 | NUR ---
ICU/RN PM CARE PROVIDED.DUE MEDS ARE GIVEN ORDERED.F/C CHANGED. T-100.5/COOLING BLANKET ON .NO SEIZURES ACTIVITIES NOTED FOR LAST 6 HRS. CONTINUE MONITORING.
--- NOTE | 2023-01-22 19:05 | NUR ---
RN OPENING NOTES RECEIVED PATIENT ON BED, AWAKE, NON VERBAL, UNABLE TO FOLLOW COMMAND. NASAL CANULA @ 2LPM SATING AT 97%. NO SOB NOTED. NOTED WITH TEMP- 100.2 FAHRENHEIT. NO S/S OF DISTRESS NOTED. PATIENT WITH UMESH MID LINE AND LEFT HAND PERIPHERAL LINE FLUSHED WITH NS NO S/S OF INFILTRATION NOTED. RUNNING WITH 1/2 NS @ 75 ML/HR. GTUBE PATENT INTACT, VERIFIED PLACEMENT BY AUSCULTATION, NO RESIDUAL NOTED UPON ASPIRATION, RUNNING WITH GLUCERNA 1.2 @ 65 ML/HR, HEAD OF BED KEPT ELEVATED. VIDES CATHETER PATENT INTACT DRAINING WITH CLEAR WIL URINE VIA GRAVITY. SEIZURE PRECAUTION IN PLACED. ALL SAFETY MEASURE PROVIDED. BED IN LOWEST POSITION. LOCKED. CALL LIGHT WITH IN REACH
[2023-01-22] MEDS: LEVETIRACETAM (500MG) 1,000 MG in IV NS 0.9% 100 ML IV SCH ×2 (20:26→21:32)
--- NOTE | 2023-01-22 20:30 | NUR ---
RN NOTES STILL NOTED WITH TEMP 100.4 FAHRENHEIT, CONTINUE WITH COOLING MEASURE. ACETAMINOPHEN 650 MG GIVEN.
[2023-01-22] MEDS: CALCIUM CARBONATE (1250) 500 MG TABLET GT SCH (21:32)
[2023-01-22] MEDS: ATORVASTATIN 40 MG TABLET GT SCH (21:32)
[2023-01-22] MEDS: risperiDONE LIQUID 1 MG/ML ML GT SCH (21:45)
--- NOTE | 2023-01-22 21:45 | NUR ---
RN NOTES RISPERDAL 0.5MG LIQUID NOT AVAILABLE IN PATIENT CARTRIDGE, NOT EVEN IN THE FRIDGE AND NOT IN STOCK IN THE OMNICELL, CALLED AFTER HOUR PHARMACY IF WE CAN CHANGED IT TO TABLET FORM, PER SAM RISPERDAL TABLET IS OK TO CRUSH. OBTAINED NEW ORDER FROM [facility], RISPERDAL 0.5MG TABLET ONE TIME. WE WILL FOLLOW UP WITH PHARMACY TO DELIVER IT.
[2023-01-22] MEDS ORDERED: risperiDONE 1 MG TABLET PO ONE (22:00)
[2023-01-23] VITALS (24 sets, daily range): BP systolic 141–187; BP diastolic 66–105
[2023-01-23] MEDS: LACOSAMIDE 200 MG in IV NS 0.9% 100 ML IV SCH ×3 (00:02→23:42)
[2023-01-23] MEDS: hydrALAZINE HCL 25 MG TABLET GT PRN ×2 (00:07→05:35)
--- NOTE | 2023-01-23 00:10 | NUR ---
RN NOTES NOTED WITH BP- 171/78 HR- 102, HYDRALAZINE 25MG GT GIVEN.
[2023-01-23] MEDS: BLOOD SUGAR DIAGNOSTIC 1 EACH STRIP IN SCH ×4 (00:17→17:13)
[2023-01-23] MEDS: INSULIN REGULAR, HUMAN 100 UNIT/ML 3 ML VIAL SQ PRN ×2 (00:18→06:10)
--- NOTE | 2023-01-23 00:18 | NUR ---
RN NOTES BLOOD SUGAR 108 mg/dL, NO INSULIN COVERAGE PER SLIDING SCALE, NO S/S OF HYPOGLYCEMIA NOTED.
--- NOTE | 2023-01-23 03:50 | NUR ---
RN NOTES PT HAS MULTIPLE SEIZURES .ATIVAN 1MG IV GIVEN ORDERED. CONTINUE TO MONITOR. T-100.2 ,BP 154/80.SAT O2-98%.
[2023-01-23] MEDS: LORAZEPAM INJ 2 MG/ML VIAL IV PRN ×3 (03:51→23:21)
[2023-01-23 04:11] LABS: BASOPHILS % (AUTO) 0.4 % (0.0-2.0); EOSINOPHILS % (AUTO) 0.1 % (0.0-6.0); HEMATOCRIT 31 % (39-51); HEMOGLOBIN 10.1 g/dL (13.5-17.5); LYMPHOCYTES # (AUTO) 0.9 K/uL (0.8-4.8); LYMPHOCYTES % (AUTO) 10.5 % (20.0-44.0); MEAN CORPUSCULAR HGB CONC 33 g/dl (31.0-36.0); MEAN CORPUSCULAR VOLUME 86 fL (80-96); MONOCYTES # (AUTO) 0.9 K/uL (0.1-1.30); PLATELET COUNT (AUTO) 205 K/uL (150-450); RED BLOOD CELL COUNT(AUTO) 3.55 MIL/uL (4.5-6.0); WHITE BLOOD COUNT (AUTO) 8.9 K/uL (4.3-11.0)
[2023-01-23 04:40] LABS: CALCIUM, SERUM 9.2 mg/dL (8.5-10.1); CREATININE 1.7 mg/dL (0.6-1.3); MAGNESIUM 2.3 mg/dL (1.8-2.4); PHOSPHORUS 3.2 mg/dL (2.5-4.9); POTASSIUM 3.5 mmol/L (3.5-5.1)
[2023-01-23] MEDS: PIPERACILLIN /TAZOBACTAM 3.375 G in IV D5W 100 ML IV SCH ×3 (04:51→20:41)
--- NOTE | 2023-01-23 05:36 | NUR ---
RN NOTES NOTED WITH BP-179/92, PULSE -96, PER DNP ROBERT KO ADMINISTER HYDRALAZINE 25MG GT PRN Q6HR NOW.
[2023-01-23] MEDS: IV 1/2NS 1000 ML 1,000 ML IV SCH (05:49)
[2023-01-23] MEDS: ACETAMINOPHEN 650 MG/20.3 ML UDC GT PRN (06:05)
--- NOTE | 2023-01-23 06:11 | NUR ---
RN NOTES STILL NOTED WITH TEMP 100.1 FAHRENHEIT, CONTINUE WITH COOLING MEASURE. ACETAMINOPHEN 650 MG GIVEN.
[2023-01-23] MEDS: CLOPIDOGREL BISULFATE 75 MG TABLET GT SCH (08:16)
[2023-01-23] MEDS: PANTOPRAZOLE 40 MG/PACK PACK GT SCH (08:16)
[2023-01-23] MEDS: ESCITALOPRAM OXALATE (10 MG) 10 MG TABLET GT SCH (08:16)
[2023-01-23] MEDS: CHLORHEXIDINE GLUCONATE 15 ML UDC MM SCH ×2 (08:16→17:12)
[2023-01-23] MEDS: LEVOTHYROXINE SODIUM 75 MCG TABLET GT SCH (08:17)
[2023-01-23] MEDS: HEPARIN SODIUM, PORCINE 5000 UNITS/1 ML VIAL SQ SCH ×2 (08:17→17:12)
[2023-01-23] MEDS: ASPIRIN 81 MG TAB.CHEW GT SCH (08:17)
[2023-01-23] MEDS: PHENOBARBITAL 30 MG TABLET GT SCH ×2 (08:17→20:40)
[2023-01-23] MEDS: THERAHONEY GEL 1.5 OZ TUBE TP SCH (08:18)
--- NOTE | 2023-01-23 08:22 | NUR ---
rn notes Patient seizing administered Ativan 1 mg/ml iv push, bp165/80, p-93, will follow up.
[2023-01-23] MEDS: LEVETIRACETAM (500MG) 1,000 MG in IV NS 0.9% 100 ML IV SCH ×4 (08:46→21:46)
[2023-01-23] MEDS ORDERED: hydrALAZINE HCL IV 20 MG VIAL IV PRN (10:00)
[2023-01-23] MEDS: AMLODIPINE BESYLATE 5 MG TABLET GT SCH (10:09)
--- NOTE | 2023-01-23 10:15 | NUR ---
rn notes patient having multiple seizure notified neurologist Dr Gregg and get new TO order Dilantin 1g iv X1, and 100 ml q8hr IV . order taken and carried out.
[2023-01-23] MEDS ORDERED: phenytoin SODIUM IV 1,000 MG in IV NS 0.9% 100 ML IV ONE (10:30)
[2023-01-23] MEDS ORDERED: PHENYTOIN SODIUM IV 100 MG/2ML VIAL IV ONE (10:30)
[2023-01-23] MEDS ORDERED: IV 1/2NS 1000 ML 1,000 ML IV PRN (10:30)
[2023-01-23] MEDS: IV D5W 1,000 ML IV SCH (17:03)
[2023-01-23] MEDS: GLUCERNA 1.2 1,000 ML BOTTLE NG PRN (17:26)
--- NOTE | 2023-01-23 18:30 | NUR ---
rn notes patient was seizing shift X 7 time during the shift, scheduled medication administered, t-98.3, infusing D5W @ 75 ml/hr on UMESH intact,, running Glucerna 65 ml/hr. keep hob elevated. assist turn and reposition q 2hr. patient contracted.bilateral lower extremities, and left arm, urine output was 2100 ml, suction, mouth care done, pm care done. no acute respiratory distress. patient awake. bed alarm on. endorsed oncoming nurse bhumika.
[2023-01-23] MEDS: PHENYTOIN SODIUM IV 100 MG/2ML VIAL IV SCH (18:34)
[2023-01-23] MEDS ORDERED: ERGOCALCIFEROL (VITAMIN D 2) 50,000 UNIT CAPSULE GT SCH (19:00)
[2023-01-23] MEDS ORDERED: ALENDRONATE 70 MG TABLET PO SCH (19:00)
--- NOTE | 2023-01-23 19:02 | NUR ---
rn notes administered Ativan 1 mg via GT for seizure at this time.
--- NOTE | 2023-01-23 19:30 | NUR ---
RN NOTES RECEIVED REPORT FROM MORNING RN OBTUNDED. PATIENT IN BED NOTED SEIZING AT THAT TIME. ON NASAL CANULA AT 2LPM SATING 99% NO SOB NOT ON RESPIRATORY DISTRESS NOTED AT THIS TIME. WITH IV ACCESS AT SURYA MIDLINE PATENT FLUSHES WELL NO REDNESS NO INFILTRATION NOTED RUNNING D5W 75ML/HR AND NS @ TKO. WITH VIDES CATHETER CONNECTED TO URINE BAG DRAINING YELLOWISH URINE OUTPUT. WITH GT INTACT NO GASTRIC RESIDUAL NOTED WITH GLUCERNA RUNNING AT 65 ML/HR. ALL SAFETY MEASURES IN PLACE SEIZURE PRECAUTION IN PLACE. HOB ELEVATED. CALL LIGHT WITHIN REACH. WILL CLOSELY MONITOR THE PATIENT
[2023-01-23] MEDS: IV NS 0.9% 250 ML IV PRN (20:30)
--- NOTE | 2023-01-23 21:40 | NUR ---
RN NOTES CALLED SPOKE MAKER ROBERT TO CHANGE RISPERDAL LIQUID ORDER TO TABLET NO LIQUID AVAILABLE AT THIS TIME. AND INFORMED HIM THAT PATIENT HAS 3 SEIZURE SINCE THE START OF THE SHIFT.
[2023-01-23] MEDS: ATORVASTATIN 40 MG TABLET GT SCH (21:44)
[2023-01-23] MEDS: CALCIUM CARBONATE (1250) 500 MG TABLET GT SCH (21:44)
[2023-01-23] MEDS: risperiDONE 1 MG TABLET PO SCH (22:45)
[2023-01-24] VITALS (24 sets, daily range): BP systolic 147–185; BP diastolic 71–96
[2023-01-24] MEDS: BLOOD SUGAR DIAGNOSTIC 1 EACH STRIP IN SCH ×4 (00:04→18:23)
[2023-01-24] MEDS: PHENYTOIN SODIUM IV 100 MG/2ML VIAL IV SCH ×3 (01:47→18:24)
[2023-01-24] MEDS: hydrALAZINE HCL 25 MG TABLET GT PRN ×2 (03:55→19:51)
[2023-01-24] MEDS: PIPERACILLIN /TAZOBACTAM 3.375 G in IV D5W 100 ML IV SCH ×3 (04:43→20:05)
[2023-01-24] MEDS: IV D5W 1,000 ML IV SCH (05:21)
--- NOTE | 2023-01-24 06:44 | NUR ---
RN NOTES PATIENT HAS AN EPISODES OF SEIZURES 8X DURING THIS SHIFT FROM 10-40 SECONDS LONG. ALL DUE MEDS GIVEN ORDERED.GT PATENT RUNNING GLUCERNA AT 65 ML/HR. VIDES CATH DRAINING WELL. PRN BP MEDICATION GIVEN X1. ALL SIOVC0H MEASURES IN PLACE SEIZURE PREC IN PLACE AT ALL TIMES. WILL ENDORSED TO MORNING SHIFT FOR COLLIN
[2023-01-24] MEDS: LORAZEPAM INJ 2 MG/ML VIAL IV PRN (07:15)
--- NOTE | 2023-01-24 07:30 | NUR ---
RN NOTES NOTIFIED CHUCK AMEZCUA (HEATING EQUIPMENT REPAIRER) THAT PT IS PULLING ON HIS LINES AND VIDES CATH. RECEIVED ORDERS TO PLACE A BILATERAL SOFT RESTRAINT FOR PATIENT AT THIS TIME. WILL CONTINUE TO REEVALUATE RESTRAINT NEEDS.
[2023-01-24] MEDS: IV NS 0.9% 250 ML IV PRN (07:56)
[2023-01-24] MEDS ORDERED: IV D5W 1,000 ML IV PRN (08:25)
[2023-01-24] MEDS: ESCITALOPRAM OXALATE (10 MG) 10 MG TABLET GT SCH (08:33)
[2023-01-24] MEDS: CHLORHEXIDINE GLUCONATE 15 ML UDC MM SCH ×2 (08:33→17:49)
[2023-01-24] MEDS: ASPIRIN 81 MG TAB.CHEW GT SCH (08:33)
[2023-01-24] MEDS: PANTOPRAZOLE 40 MG/PACK PACK GT SCH (08:35)
[2023-01-24] MEDS: LEVOTHYROXINE SODIUM 75 MCG TABLET GT SCH (08:35)
[2023-01-24] MEDS: PHENOBARBITAL 30 MG TABLET GT SCH (08:35)
[2023-01-24] MEDS: AMLODIPINE BESYLATE 5 MG TABLET GT SCH (08:35)
[2023-01-24] MEDS: CLOPIDOGREL BISULFATE 75 MG TABLET GT SCH (08:35)
[2023-01-24] MEDS: THERAHONEY GEL 1.5 OZ TUBE TP SCH (08:37)
[2023-01-24] MEDS: HEPARIN SODIUM, PORCINE 5000 UNITS/1 ML VIAL SQ SCH ×2 (08:52→17:49)
[2023-01-24] MEDS: LEVETIRACETAM (500MG) 1,000 MG in IV NS 0.9% 100 ML IV SCH ×4 (08:53→21:35)
[2023-01-24 09:25] LABS: BASOPHILS % (AUTO) 0.4 % (0.0-2.0); EOSINOPHILS % (AUTO) 0.8 % (0.0-6.0); HEMATOCRIT 31 % (39-51); HEMOGLOBIN 10.2 g/dL (13.5-17.5); LYMPHOCYTES # (AUTO) 0.9 K/uL (0.8-4.8); LYMPHOCYTES % (AUTO) 10.6 % (20.0-44.0); MEAN CORPUSCULAR HGB CONC 33 g/dl (31.0-36.0); MEAN CORPUSCULAR VOLUME 85 fL (80-96); MONOCYTES # (AUTO) 0.7 K/uL (0.1-1.30); MONOCYTES % (AUTO) 8.2 % (2.0-12.0); NEUTROPHILS # (AUTO) 6.6 K/uL (1.8-8.9); PLATELET COUNT (AUTO) 202 K/uL (150-450); WHITE BLOOD COUNT (AUTO) 8.2 K/uL (4.3-11.0)
[2023-01-24 09:42] LABS: CALCIUM, SERUM 9.2 mg/dL (8.5-10.1); CREATININE 1.5 mg/dL (0.6-1.3); POTASSIUM 3.7 mmol/L (3.5-5.1)
[2023-01-24 09:46] LABS: ALBUMIN 2.7 g/dL (3.4-5.0); BILIRUBIN,TOTAL 0.4 mg/dL (0.2-1.0); MAGNESIUM 2.1 mg/dL (1.8-2.4); PHOSPHORUS 3.2 mg/dL (2.5-4.9); TOTAL PROTEIN, SERUM 6.5 g/dL (6.4-8.2)
--- NOTE | 2023-01-24 10:00 | NUR ---
RN NOTES SPOKE TO CHUCK AMEZCUA (INSEMINATOR) AND HE STATES THAT PT WILL BE TRANSFERRED TO HIGHER LEVEL OF CARE AT [facility]. STILL WAITING FOR BED TO OPEN.
[2023-01-24] MEDS: LACOSAMIDE 200 MG in IV NS 0.9% 100 ML IV SCH (11:22)
[2023-01-24] MEDS: GLUCERNA 1.2 1,000 ML BOTTLE NG PRN (12:05)
--- NOTE | 2023-01-24 15:30 | NUR ---
STENCIL MAKER PT ACCEPTED AT [facility] FOR HIGHER LEVEL OF CARE TRANSFER. NO BED AVAILABLE YET.
--- NOTE | 2023-01-24 19:30 | NUR ---
RN NOTES RECEIVED REPORT FROM MORNING SHIFT RN. PATIENT IN BED OBTUNDED OPENS EYES SPONTANEOUSLY. ON NASAL CANULA AT 2LPM SATING 99% NO SOB NO NOT ON ANY RESPIRATORY DISTRESS AT THIS TIME. WITH IV ACCESS AT SURYA MIDLINE PATENT RUNNING D5W @75 ML/HR. WITH PEG PATENT RUNNING GLUCERNA @ 65ML/HR. VIDES CATH PATENT DRAINING YELLOWISH URINE OUTPUT. ALL SAFETY MEASURES IN PLACE SEIZURE PRECAUTION IN PLACE. WILL CLOSELEY MONITOR THE PATIENT
--- NOTE | 2023-01-24 19:30 | NUR ---
RN CLOSING NOTES NO CHANGES FOR PT TODAY. PENDING TRANSFER TO [facility] FOR HIGHER LEVEL OF CARE. REPORT GIVEN TO ONCOMING RN FOR CONTINUATION OF CARE.
--- NOTE | 2023-01-24 20:00 | NUR ---
RN NOTES TRIED TO CALL RESPONSIBLE LIBERTARIAN PORTIA UREÑA BUT PHONE ON FILE IS NOT WORKING TRIED 3X.
[2023-01-24] MEDS ORDERED: CEFEPIME 1 GM in IV D5W 50 ML IV SCH (20:30)
--- NOTE | 2023-01-24 20:50 | NUR ---
RN NOTES CALLED [facility] TO GIVE REPORT SPOKE TO TAI HERRERA
[2023-01-24] MEDS ORDERED: CEFEPIME 2 GM in IV D5W 100 ML IV SCH (21:00)
[2023-01-24] MEDS ORDERED: PHENOBARBITAL 60 MG/15 ML UDC GT SCH (21:00)
[2023-01-24] MEDS: risperiDONE 1 MG TABLET PO SCH (21:37)
[2023-01-24] MEDS: ATORVASTATIN 40 MG TABLET GT SCH (21:37)
[2023-01-24] MEDS: CALCIUM CARBONATE (1250) 500 MG TABLET GT SCH (22:00)
--- NOTE | 2023-01-24 23:21 | NUR ---
RN NOTES PATIENT PICKED UP BY 2 EMT'S. REPORT GIVEN TO EMT. SAFELY TRANSFER TO [facility]. LEFT THE HOSPITAL.
== END 2023-01-24 23:23 | disposition short-term general hospital (02) | DRG 871 ==
LOC: ER 05:33 → TRANSITION 09:59 → ICU 11:11
PROVIDERS: ADMIT Student in an Organized Health Care Education/Training Program; ATTEND Nurse Practitioner Family
PROC: 05H533Z Insertion of Infusion Device into Right Subclavian Vein, Percutaneous Approach (ICD-10-PCS; principal; 2023-01-21)
PROC: B546ZZA Ultrasonography of Right Subclavian Vein, Guidance (ICD-10-PCS; 2023-01-21)
DX: A41.9 Sepsis, unspecified organism (principal); E43 Unspecified severe protein-calorie malnutrition; L89.613 Pressure ulcer of right heel, stage 3; N17.0 Acute kidney failure with tubular necrosis; R53.2 Functional quadriplegia; N39.0 Urinary tract infection, site not specified; E87.20 Acidosis, unspecified; F73 Profound intellectual disabilities; G93.49 Other encephalopathy; E87.0 Hyperosmolality and hypernatremia; G40.901 Epilepsy, unspecified, not intractable, with status epilepticus; N18.9 Chronic kidney disease, unspecified; E03.9 Hypothyroidism, unspecified; E86.0 Dehydration; E88.09 Other disorders of plasma-protein metabolism, not elsewhere classified; E11.22 Type 2 diabetes mellitus with diabetic chronic kidney disease; Z79.899 Other long term (current) drug therapy; Z79.82 Long term (current) use of aspirin; K29.70 Gastritis, unspecified, without bleeding; N31.9 Neuromuscular dysfunction of bladder, unspecified; R13.10 Dysphagia, unspecified; Z93.1 Gastrostomy status; R65.20 Severe sepsis without septic shock; Z20.822 Contact with and (suspected) exposure to COVID-19; L89.899 Pressure ulcer of other site, unspecified stage; Z68.25 Body mass index [BMI] 25.0-25.9, adult; M24.561 Contracture, right knee; M24.562 Contracture, left knee
CPT/HCPCS: 36415; 36600; 70450-TC; 71045-TC; 80048-TC; 80053-TC; 80076-TC; 80184; 80185-TC; 80202-TC; 81001; 82550-TC; 82803-TC; 82962-TC; 83605-TC; 83735-TC; 84100-TC; 84484-TC; 85025-TC; 85730-TC; 87040-TC; 87081-TC; 87086-TC; 94799-TC; 95819-TC; A4223; C9113; C9803; G0378; J0360; J0692; J1165; J1644; J1815; J1953; J2060; J2185; J2543; J3360; J3370; J3490; J7030; J7050; J7060; J7070

== ENCOUNTER 2023-04-17 17:24 | Inpatient (IN) | payer OTHER, MEDICARE ==
[~2023-04-17] VITALS: Ht 167.6 cm; Wt 75.7 kg
[~2023-04-17 17:24] MED LIST changes: -ALEN70TA80 GT; -ALLA266C2 TP; -CIPR7.5D9 EACH EAR; +FERR300L GT; +HONE15GE TP; -HYDR28OI2 TP; +MICO1COM TP; -MINE105O TP; -MULT-447 GT; +NEOM1OIN15 TP; +OMEG1CAP GT; +PETR18JE3 TP; -POLY17PO4 GT; +POVI3780 TP; -QUET25TA GT; -QUET50TA GT; +[UNRECOGNIZED DRUG - CODE] TP
[2023-04-17 17:33] VITALS: O2SAT 96
[2023-04-17 19:10] LABS: BASOPHILS % (AUTO) 0.1 % (0.0-2.0); EOSINOPHILS % (AUTO) 0.6 % (0.0-6.0); LYMPHOCYTES # (AUTO) 0.4 K/uL (0.8-4.8); LYMPHOCYTES % (AUTO) 6.1 % (20.0-44.0); MEAN CORPUSCULAR HEMOGLOBIN 31 PG (26.0-33.0); MEAN CORPUSCULAR HGB CONC 34 g/dl (31.0-36.0); MEAN CORPUSCULAR VOLUME 91 fL (80-96); MONOCYTES # (AUTO) 0.6 K/uL (0.1-1.30); MONOCYTES % (AUTO) 8.6 % (2.0-12.0); NEUTROPHILS # (AUTO) 6.2 K/uL (1.8-8.9); NEUTROPHILS % (AUTO) 84.6 % (43.0-81.0); PLATELET COUNT (AUTO) 348 K/uL (150-450); RED BLOOD CELL COUNT(AUTO) 2.24 MIL/uL (4.5-6.0); RED CELL DISTRIBUTION WIDTH 15.1 % (11.5-15.0); WHITE BLOOD COUNT (AUTO) 7.3 K/uL (4.3-11.0)
[2023-04-17 19:14] LABS: HEMATOCRIT 20 % (39-51); HEMOGLOBIN 6.9 g/dL (13.5-17.5)
[2023-04-17] MEDS ORDERED: MULT9LIQ6 GT (19:17)
[2023-04-17] MEDS ORDERED: ACET160L44 GT (19:17)
[2023-04-17] MEDS ORDERED: MINE105O TP (19:17)
[2023-04-17] MEDS ORDERED: POLY17PO4 GT (19:17)
[2023-04-17] MEDS ORDERED: PETR113O TP (19:17)
[2023-04-17] MEDS ORDERED: QUET25TA PO (19:17)
[2023-04-17] MEDS ORDERED: QUET50TA GT (19:17)
[2023-04-17] MEDS ORDERED: LACO200T2 GT (19:17)
[2023-04-17] MEDS ORDERED: HYDR28.32 TP (19:17)
[2023-04-17] MEDS ORDERED: LEVE100S GT (19:17)
[2023-04-17] MEDS ORDERED: FERR220S2 GT (19:17)
[2023-04-17] MEDS ORDERED: BINOSTO GT (19:17)
[2023-04-17] MEDS ORDERED: DESM0.1T4 GT (19:17)
[2023-04-17] MEDS ORDERED: AMIN30LI2 GT (19:17)
[2023-04-17 19:21] LABS: INR 0.98 (0.91-1.10); PARTIAL THROMBOPLASTIN TIME 29.2 SEC (24.3-34.3); PROTHROMBIN TIME 10.3 SECS (9.2-11.1)
[2023-04-17 19:29] LABS: CALCIUM, SERUM 9.2 mg/dL (8.5-10.1); CARBON DIOXIDE 26 mmol/L (21-32); CHLORIDE 94 mmol/L (98-107); GLUCOSE 101 mg/dL (74-106); SODIUM SERUM 128 mmol/L (136-145); UREA NITROGEN, BLOOD 50 mg/dL (7-18)
[2023-04-17 19:35] VITALS: O2SAT 98
[2023-04-17 19:37] LABS: LACTIC ACID 1.3 mmol/L (0.4-2.0)
[2023-04-17 19:45] LABS: ALANINE AMINOTRANSFERASE 52 U/L (12-78); ALBUMIN 1.9 g/dL (3.4-5.0); ALKALINE PHOSPHATASE 93 U/L (46-116); ASPARTATE AMINOTRANSFERASE 45 U/L (15-37); BILIRUBIN,DIRECT 0.1 mg/dL (0.0-0.2); BILIRUBIN,TOTAL 0.2 mg/dL (0.2-1.0); NT-PRO BNP 650 pg/mL (0-125); TOTAL PROTEIN, SERUM 6.7 g/dL (6.4-8.2)
[2023-04-17 20:14] LABS: BAND % (MANUAL) 2 % (0.0-5.0); LYMPHOCYTES % (MANUAL) 6 % (16-48); MONOCYTES % (MANUAL) 8 % (0-11.0); NEUTROPHILS % (MANUAL) 84 (42-76)
[2023-04-17 20:15] LABS: PLATELET ESTIMATE ADEQUATE
[2023-04-17 20:27] LABS: APPEARANCE,URINE SLIGHTLY CLOUDY (CLEAR); BILIRUBIN,URINE NEGATIVE (NEGATIVE); BLOOD, URINE 1+ Ery/uL (NEGATIVE); COLOR,URINE YELLOW (YELLOW); KETONES,URINE NEGATIVE (NEGATIVE); LEUKOCYTE ESTERASE ,URINE 2+ (NEGATIVE); NITRITE, URINE NEGATIVE (NEGATIVE); PH,URINE 7.5 (5.0-8.0); PROTEIN,URINE 1+ mg/dl (NEGATIVE); UGLUCOSE NEGATIVE (NEGATIVE); UROBILINOGEN,URINE 0.2 EU/dL (0.2)
[2023-04-17] MEDS ORDERED: CT SWABBABLE VALVE TRANS SET 1 EA INFUS.SET MC ONE (20:30)
[2023-04-17] MEDS ORDERED: IOHEXOL-300 100 ML VIAL IV ONE (20:30)
[2023-04-17] MEDS ORDERED: IV NS 0.9% 250 ML IV ONE (20:30)
[2023-04-17] MEDS ORDERED: PIPERACILLIN /TAZOBACTAM 3.375 G in IV D5W 50 ML IV ONE (20:30)
[2023-04-17 21:05] LABS: ADD URINE CULTURE YES; BACTERIA,URINE 1+ /HPF (None Seen); SQUAMOUS EPITHELIAL CELL,UR None Seen /HPF (None Seen)
[2023-04-17 21:06] LABS: MUCUS,URINE Moderate /LPF (None Seen)
[2023-04-17] MEDS ORDERED: ZOLPIDEM TARTRATE 5 MG TABLET PO PRN (21:30)
[2023-04-17] MEDS ORDERED: ONDANSETRON HCL/PF 4 MG/2 ML VIAL IVP PRN (21:30)
[2023-04-17] MEDS ORDERED: Z GUARD REMEDY 4 OZ OINT TP PRN (21:30)
[2023-04-17] MEDS ORDERED: ACETAMINOPHEN 325 MG TABLET PO PRN (21:30)
[2023-04-17] MEDS ORDERED: HYDROCODONE/APAP 5/325MG TABLET PO PRN (21:30)
[2023-04-17] MEDS ORDERED: MAGNESIUM HYDROXIDE 30 ML UDC PO PRN (21:30)
[2023-04-17] MEDS ORDERED: MAG HYDROX/AL HYDROX/SIMETH 30 ML UDC PO PRN (21:30)
[2023-04-17] MEDS ORDERED: IV NS 0.9% 1,000 ML IV ONE (21:30)
[2023-04-17 23:15] VITALS: O2SAT 96
[2023-04-18] VITALS (13 sets, daily range): BP systolic 111–148; BP diastolic 65–98; TEMP 97.6–99; O2SAT 95–99
[2023-04-18] MEDS: PIPERACI/TAZO 3.375GM/D5W 50ML PB IV ONE ×4 (01:00→05:19)
[2023-04-18] MEDS: ZOSYN IVPB 3.375 G in IV D5W 50ml IV SCH ×5 (01:02→23:34)
[2023-04-18] MEDS: IV NS 0.9% 1,000 ML IV PRN ×2 (01:03→14:34)
[2023-04-18 07:29] LABS: BASOPHILS % (AUTO) 0.2 % (0.0-2.0); EOSINOPHILS # (AUTO) 0.1 K/uL (0.0-0.7); EOSINOPHILS % (AUTO) 0.8 % (0.0-6.0); HEMATOCRIT 25 % (39-51); HEMOGLOBIN 8.5 g/dL (13.5-17.5); LYMPHOCYTES # (AUTO) 0.5 K/uL (0.8-4.8); LYMPHOCYTES % (AUTO) 6.4 % (20.0-44.0); MEAN CORPUSCULAR HEMOGLOBIN 30 PG (26.0-33.0); MEAN CORPUSCULAR HGB CONC 34 g/dl (31.0-36.0); MEAN CORPUSCULAR VOLUME 90 fL (80-96); MONOCYTES # (AUTO) 0.5 K/uL (0.1-1.30); MONOCYTES % (AUTO) 7.6 % (2.0-12.0); NEUTROPHILS # (AUTO) 6.1 K/uL (1.8-8.9); PLATELET COUNT (AUTO) 351 K/uL (150-450); RED CELL DISTRIBUTION WIDTH 15.1 % (11.5-15.0); WHITE BLOOD COUNT (AUTO) 7.1 K/uL (4.3-11.0)
[2023-04-18 08:07] LABS: CALCIUM, SERUM 9.6 mg/dL (8.5-10.1); CREATININE 1.1 mg/dL (0.6-1.3); MAGNESIUM 2.4 mg/dL (1.8-2.4); PHOSPHORUS 3.5 mg/dL (2.5-4.9); POTASSIUM 3.7 mmol/L (3.5-5.1)
[2023-04-18] MEDS: DAKINS QUARTER STRENGTH (0.125%) 480 ML BOTTLE TOP SCH (10:41)
[2023-04-18] MEDS: PANTOPRAZOLE 40 MG TABLET.DR PO SCH (10:41)
[2023-04-18] MEDS: DOXYCYCLINE 100 MG in IV D5W 100 ML IV SCH ×2 (10:45→22:30)
[2023-04-18] MEDS: LORAZEPAM INJ 2 MG/ML VIAL IV PRN (13:58)
[2023-04-18] MEDS ORDERED: LORAZEPAM INJ 2 MG/ML VIAL IV PRN (14:30)
[2023-04-18] MEDS: LACOSAMIDE 50 MG TABLET GT SCH (16:28)
[2023-04-18] MEDS: LEVETIRACETAM SOL (5 ML) 100 MG/ML UDC GT SCH ×2 (16:28→17:53)
[2023-04-18] MEDS: CADEXOMER IODINE 40 GM TUBE TP SCH (21:53)
[2023-04-19] VITALS (12 sets, daily range): BP systolic 131–166; BP diastolic 74–98; TEMP 97.5–99.7; O2SAT 95–100
[2023-04-19] MEDS: ZOSYN IVPB 3.375 G in IV D5W 50ml IV SCH ×3 (05:27→18:39)
[2023-04-19] MEDS: IV NS 0.9% 1,000 ML IV PRN (05:27)
[2023-04-19 06:15] LABS: BASOPHILS % (AUTO) 0.3 % (0.0-2.0); EOSINOPHILS # (AUTO) 0.1 K/uL (0.0-0.7); EOSINOPHILS % (AUTO) 0.8 % (0.0-6.0); HEMATOCRIT 25 % (39-51); HEMOGLOBIN 8.4 g/dL (13.5-17.5); LYMPHOCYTES # (AUTO) 0.5 K/uL (0.8-4.8); LYMPHOCYTES % (AUTO) 7.1 % (20.0-44.0); MEAN CORPUSCULAR HEMOGLOBIN 31 PG (26.0-33.0); MEAN CORPUSCULAR HGB CONC 34 g/dl (31.0-36.0); MEAN CORPUSCULAR VOLUME 92 fL (80-96); MONOCYTES # (AUTO) 0.6 K/uL (0.1-1.30); MONOCYTES % (AUTO) 7.9 % (2.0-12.0); NEUTROPHILS # (AUTO) 6.2 K/uL (1.8-8.9); NEUTROPHILS % (AUTO) 83.9 % (43.0-81.0); PLATELET COUNT (AUTO) 336 K/uL (150-450); RED BLOOD CELL COUNT(AUTO) 2.74 MIL/uL (4.5-6.0); RED CELL DISTRIBUTION WIDTH 14.9 % (11.5-15.0); WHITE BLOOD COUNT (AUTO) 7.4 K/uL (4.3-11.0)
[2023-04-19 06:31] LABS: CALCIUM, SERUM 10.2 mg/dL (8.5-10.1); CREATININE 1.4 mg/dL (0.6-1.3); MAGNESIUM 2.4 mg/dL (1.8-2.4); PHOSPHORUS 3.5 mg/dL (2.5-4.9); POTASSIUM 3.2 mmol/L (3.5-5.1)
[2023-04-19] MEDS: PANTOPRAZOLE 40 MG TABLET.DR PO SCH (07:30)
[2023-04-19] MEDS ORDERED: MAG HYDROX/AL HYDROX/SIMETH 30 ML UDC GT PRN (08:46)
[2023-04-19] MEDS ORDERED: HYDROCODONE/APAP 5/325MG TABLET GT PRN (08:46)
[2023-04-19] MEDS ORDERED: MAGNESIUM HYDROXIDE 30 ML UDC GT PRN (08:46)
[2023-04-19] MEDS ORDERED: PHARMACY TO CHANGE PO MEDS TO GT/NG XX PRN (09:00)
[2023-04-19] MEDS: PANTOPRAZOLE 40 MG/PACK PACK GT SCH (09:25)
[2023-04-19] MEDS: LACOSAMIDE 50 MG TABLET GT SCH ×2 (09:26→18:20)
[2023-04-19] MEDS: LEVETIRACETAM SOL (5 ML) 100 MG/ML UDC GT SCH ×2 (09:26→18:19)
[2023-04-19] MEDS: CADEXOMER IODINE 40 GM TUBE TP SCH ×2 (09:28→21:27)
[2023-04-19] MEDS: DAKINS QUARTER STRENGTH (0.125%) 480 ML BOTTLE TOP SCH (09:29)
[2023-04-19] MEDS ORDERED: GUAIFENESIN 300 MG/15 ML UDC GT PRN (11:30)
[2023-04-19] MEDS ORDERED: BISACODYL SUPP (10 MG) 10 MG/SUPP.RECT SUPP.RECT RC PRN (11:30)
[2023-04-19] MEDS ORDERED: TRAMADOL HCL 50 MG TABLET GT PRN (11:30)
[2023-04-19] MEDS ORDERED: NA PHOS,M-B/NA PHOS,DI-BA 1 EA ENEMA RC PRN (11:30)
[2023-04-19] MEDS ORDERED: LACTULOSE 10 G/15 ML UDC (PYXIS) GT PRN (12:00)
[2023-04-19] MEDS ORDERED: ALBUTEROL HALF STRENGTH 1.25 MG/3 ML VIAL.NEB NEB PRN (12:00)
[2023-04-19] MEDS ORDERED: IPRATROPIUM NEB FS 0.5 MG/2.5 ML AMPUL.NEB NEB PRN (12:00)
[2023-04-19] MEDS ORDERED: ALBUTEROL FS 2.5 MG/0.5 ML VIAL.NEB HHN PRN (12:00)
[2023-04-19] MEDS: CHLORHEXIDINE GLUCONATE 15 ML UDC MM SCH (12:21)
[2023-04-19] MEDS: DOXYCYCLINE 100 MG in IV D5W 100 ML IV SCH ×2 (12:21→23:31)
[2023-04-19] MEDS: POTASSIUM CL. PREMIX PERIPHER. 50 ML IV SCH ×4 (14:03→17:43)
[2023-04-19] MEDS: POLYETHYLENE GLYCOL 3350 17 GM POWD.PACK GT SCH (17:00)
[2023-04-19] MEDS: DESMOPRESSIN ACETATE 0.1 MG TABLET GT SCH (18:20)
[2023-04-19] MEDS: QUETIAPINE FUMARATE 25 MG TABLET PO SCH (21:27)
[2023-04-19] MEDS: ATORVASTATIN 40 MG TABLET GT SCH (21:28)
[2023-04-19] MEDS: CALCIUM CARBONATE (1250) 500 MG TABLET GT SCH (21:29)
[2023-04-20] VITALS (12 sets, daily range): BP systolic 145–159; BP diastolic 78–87; TEMP 97.9–99; O2SAT 95–99
[2023-04-20] MEDS: ZOSYN IVPB 3.375 G in IV D5W 50ml IV SCH ×5 (00:54→23:52)
[2023-04-20] MEDS: IV NS 0.9% 1,000 ML IV PRN (04:10)
[2023-04-20 06:30] LABS: BASOPHILS % (AUTO) 0.5 % (0.0-2.0); EOSINOPHILS # (AUTO) 0.1 K/uL (0.0-0.7); EOSINOPHILS % (AUTO) 1.8 % (0.0-6.0); HEMATOCRIT 27 % (39-51); HEMOGLOBIN 8.7 g/dL (13.5-17.5); LYMPHOCYTES # (AUTO) 0.8 K/uL (0.8-4.8); LYMPHOCYTES % (AUTO) 10.4 % (20.0-44.0); MEAN CORPUSCULAR HEMOGLOBIN 31 PG (26.0-33.0); MEAN CORPUSCULAR HGB CONC 33 g/dl (31.0-36.0); MEAN CORPUSCULAR VOLUME 93 fL (80-96); MONOCYTES # (AUTO) 0.6 K/uL (0.1-1.30); MONOCYTES % (AUTO) 8.3 % (2.0-12.0); PLATELET COUNT (AUTO) 365 K/uL (150-450); RED BLOOD CELL COUNT(AUTO) 2.83 MIL/uL (4.5-6.0); RED CELL DISTRIBUTION WIDTH 15.4 % (11.5-15.0); WHITE BLOOD COUNT (AUTO) 7.6 K/uL (4.3-11.0)
[2023-04-20 06:32] LABS: CALCIUM, SERUM 9.8 mg/dL (8.5-10.1); CREATININE 1.4 mg/dL (0.6-1.3); MAGNESIUM 2.2 mg/dL (1.8-2.4); PHOSPHORUS 3.2 mg/dL (2.5-4.9); POTASSIUM 3.3 mmol/L (3.5-5.1)
[2023-04-20] MEDS: DAKINS QUARTER STRENGTH (0.125%) 480 ML BOTTLE TOP SCH (08:05)
[2023-04-20] MEDS ORDERED: IV 1/2NS 1000 ML 1,000 ML IV PRN (08:30)
[2023-04-20] MEDS: LEVETIRACETAM SOL (5 ML) 100 MG/ML UDC GT SCH ×2 (08:39→16:17)
[2023-04-20] MEDS: CADEXOMER IODINE 40 GM TUBE TP SCH ×2 (08:39→21:23)
[2023-04-20] MEDS: LEVOTHYROXINE SODIUM 75 MCG TABLET GT SCH (08:39)
[2023-04-20] MEDS: ESCITALOPRAM OXALATE (10 MG) 10 MG TABLET GT SCH (08:39)
[2023-04-20] MEDS: CHLORHEXIDINE GLUCONATE 15 ML UDC MM SCH (08:39)
[2023-04-20] MEDS: DESMOPRESSIN ACETATE 0.1 MG TABLET GT SCH ×2 (08:39→16:17)
[2023-04-20] MEDS: POLYETHYLENE GLYCOL 3350 17 GM POWD.PACK GT SCH ×2 (08:39→16:17)
[2023-04-20] MEDS: PANTOPRAZOLE 40 MG/PACK PACK GT SCH (08:39)
[2023-04-20] MEDS: QUETIAPINE FUMARATE 25 MG TABLET GT SCH (08:39)
[2023-04-20] MEDS: LACOSAMIDE 50 MG TABLET GT SCH ×2 (08:41→16:17)
[2023-04-20] MEDS ORDERED: FERROUS SULFATE - FOR SA ONLY 330 MG/7.5 ML UDC GT SCH (09:00)
[2023-04-20] MEDS: DOXYCYCLINE 100 MG in IV D5W 100 ML IV SCH ×2 (11:17→22:19)
[2023-04-20] MEDS: POTASSIUM CL. PREMIX PERIPHER. 50 ML IV SCH ×2 (11:45→16:14)
[2023-04-20] MEDS: JEVITY 1.2 CAL 1,000 ML BOTTLE GT PRN (17:26)
[2023-04-20] MEDS: ATORVASTATIN 40 MG TABLET GT SCH (21:15)
[2023-04-20] MEDS: CALCIUM CARBONATE (1250) 500 MG TABLET GT SCH (21:16)
[2023-04-20] MEDS: QUETIAPINE FUMARATE 25 MG TABLET PO SCH (21:19)
[2023-04-21] VITALS (13 sets, daily range): BP systolic 127–163; BP diastolic 78–85; TEMP 97.8–98.7; O2SAT 95–100
[2023-04-21] MEDS: ZOSYN IVPB 3.375 G in IV D5W 50ml IV SCH (05:43)
[2023-04-21 07:25] LABS: BASOPHILS % (AUTO) 0.4 % (0.0-2.0); EOSINOPHILS # (AUTO) 0.2 K/uL (0.0-0.7); EOSINOPHILS % (AUTO) 2.1 % (0.0-6.0); HEMATOCRIT 23 % (39-51); HEMOGLOBIN 7.4 g/dL (13.5-17.5); LYMPHOCYTES # (AUTO) 0.8 K/uL (0.8-4.8); LYMPHOCYTES % (AUTO) 9.8 % (20.0-44.0); MEAN CORPUSCULAR HEMOGLOBIN 31 PG (26.0-33.0); MEAN CORPUSCULAR HGB CONC 33 g/dl (31.0-36.0); MEAN CORPUSCULAR VOLUME 94 fL (80-96); MONOCYTES # (AUTO) 0.6 K/uL (0.1-1.30); NEUTROPHILS # (AUTO) 6.4 K/uL (1.8-8.9); NEUTROPHILS % (AUTO) 79.7 % (43.0-81.0); PLATELET COUNT (AUTO) 331 K/uL (150-450); RED BLOOD CELL COUNT(AUTO) 2.42 MIL/uL (4.5-6.0); RED CELL DISTRIBUTION WIDTH 15.2 % (11.5-15.0)
[2023-04-21 07:50] LABS: CALCIUM, SERUM 9.2 mg/dL (8.5-10.1); CREATININE 1.3 mg/dL (0.6-1.3); MAGNESIUM 1.8 mg/dL (1.8-2.4); PHOSPHORUS 3.2 mg/dL (2.5-4.9); POTASSIUM 3.4 mmol/L (3.5-5.1)
[2023-04-21] MEDS ORDERED: DOXYCYCLINE HYCLATE (100 MG) 100 MG TABLET PO SCH (09:00)
[2023-04-21] MEDS: CHLORHEXIDINE GLUCONATE 15 ML UDC MM SCH (09:01)
[2023-04-21] MEDS: LEVETIRACETAM SOL (5 ML) 100 MG/ML UDC GT SCH ×2 (09:01→16:50)
[2023-04-21] MEDS: POLYETHYLENE GLYCOL 3350 17 GM POWD.PACK GT SCH ×2 (09:01→16:50)
[2023-04-21] MEDS: FERROUS SULFATE (325 MG) 325 MG/TAB TABLET GT SCH (09:02)
[2023-04-21] MEDS: LACOSAMIDE 50 MG TABLET GT SCH ×2 (09:02→16:51)
[2023-04-21] MEDS: PANTOPRAZOLE 40 MG/PACK PACK GT SCH (09:02)
[2023-04-21] MEDS: QUETIAPINE FUMARATE 25 MG TABLET GT SCH (09:02)
[2023-04-21] MEDS: LEVOTHYROXINE SODIUM 75 MCG TABLET GT SCH (09:02)
[2023-04-21] MEDS: ESCITALOPRAM OXALATE (10 MG) 10 MG TABLET GT SCH (09:02)
[2023-04-21] MEDS: DAKINS QUARTER STRENGTH (0.125%) 480 ML BOTTLE TOP SCH (09:06)
[2023-04-21] MEDS: DESMOPRESSIN ACETATE 0.1 MG TABLET GT SCH ×2 (09:06→16:50)
[2023-04-21] MEDS: CADEXOMER IODINE 40 GM TUBE TP SCH ×2 (09:06→21:14)
[2023-04-21] MEDS: Potassium Chloride 40 MEQ in IV D5W 1,000 ML IV SCH ×2 (09:59→21:18)
[2023-04-21 10:33] LABS: IRON, SERUM 32 ug/dl (50-175); TOTAL IRON BINDING CAPACITY 161 ug/dl (250-450)
[2023-04-21 11:28] LABS: MAGNESIUM 1.8 mg/dL (1.8-2.4); PHOSPHORUS 3.3 mg/dL (2.5-4.9)
[2023-04-21] MEDS ORDERED: PIPERACILLIN /TAZOBACTAM 3.375 G in IV D5W 100 ML IV SCH (13:00)
[2023-04-21] MEDS: JEVITY 1.2 CAL 1,000 ML BOTTLE GT PRN (16:45)
[2023-04-21] MEDS: hydrALAZINE HCL 25 MG TABLET GT PRN (17:05)
[2023-04-21] MEDS: ATORVASTATIN 40 MG TABLET GT SCH (22:06)
[2023-04-21] MEDS: CALCIUM CARBONATE (1250) 500 MG TABLET GT SCH (22:06)
[2023-04-21] MEDS: QUETIAPINE FUMARATE 25 MG TABLET PO SCH (22:06)
[2023-04-22] VITALS (14 sets, daily range): BP systolic 110–164; BP diastolic 70–83; TEMP 97.9–99.1; O2SAT 96–100
[2023-04-22 06:51] LABS: BASOPHILS % (AUTO) 0.6 % (0.0-2.0); EOSINOPHILS # (AUTO) 0.2 K/uL (0.0-0.7); EOSINOPHILS % (AUTO) 2.4 % (0.0-6.0); HEMATOCRIT 25 % (39-51); HEMOGLOBIN 8.2 g/dL (13.5-17.5); LYMPHOCYTES # (AUTO) 1.2 K/uL (0.8-4.8); LYMPHOCYTES % (AUTO) 17.4 % (20.0-44.0); MEAN CORPUSCULAR HEMOGLOBIN 30 PG (26.0-33.0); MEAN CORPUSCULAR HGB CONC 33 g/dl (31.0-36.0); MEAN CORPUSCULAR VOLUME 93 fL (80-96); MONOCYTES # (AUTO) 0.6 K/uL (0.1-1.30); MONOCYTES % (AUTO) 8.1 % (2.0-12.0); NEUTROPHILS # (AUTO) 5.1 K/uL (1.8-8.9); NEUTROPHILS % (AUTO) 71.5 % (43.0-81.0); PLATELET COUNT (AUTO) 368 K/uL (150-450); RED BLOOD CELL COUNT(AUTO) 2.71 MIL/uL (4.5-6.0); RED CELL DISTRIBUTION WIDTH 15.1 % (11.5-15.0); WHITE BLOOD COUNT (AUTO) 7.1 K/uL (4.3-11.0)
[2023-04-22 07:06] LABS: CALCIUM, SERUM 9.4 mg/dL (8.5-10.1); CREATININE 1.1 mg/dL (0.6-1.3); MAGNESIUM 1.8 mg/dL (1.8-2.4); PHOSPHORUS 3.6 mg/dL (2.5-4.9); POTASSIUM 4.8 mmol/L (3.5-5.1)
[2023-04-22] MEDS: CADEXOMER IODINE 40 GM TUBE TP SCH ×2 (09:01→21:45)
[2023-04-22] MEDS: DAKINS QUARTER STRENGTH (0.125%) 480 ML BOTTLE TOP SCH (09:01)
[2023-04-22] MEDS: CHLORHEXIDINE GLUCONATE 15 ML UDC MM SCH (09:02)
[2023-04-22] MEDS: LEVETIRACETAM SOL (5 ML) 100 MG/ML UDC GT SCH ×2 (09:02→16:28)
[2023-04-22] MEDS: PANTOPRAZOLE 40 MG/PACK PACK GT SCH (09:02)
[2023-04-22] MEDS: FERROUS SULFATE (325 MG) 325 MG/TAB TABLET GT SCH (09:02)
[2023-04-22] MEDS: ESCITALOPRAM OXALATE (10 MG) 10 MG TABLET GT SCH (09:03)
[2023-04-22] MEDS: POLYETHYLENE GLYCOL 3350 17 GM POWD.PACK GT SCH ×2 (09:03→16:28)
[2023-04-22] MEDS: QUETIAPINE FUMARATE 25 MG TABLET GT SCH (09:03)
[2023-04-22] MEDS: LEVOTHYROXINE SODIUM 75 MCG TABLET GT SCH (09:03)
[2023-04-22] MEDS: LACOSAMIDE 50 MG TABLET GT SCH ×2 (09:03→16:28)
[2023-04-22] MEDS: DESMOPRESSIN ACETATE 0.1 MG TABLET GT SCH ×2 (09:04→16:28)
[2023-04-22] MEDS: JEVITY 1.2 CAL 1,000 ML BOTTLE GT PRN (12:00)
[2023-04-22] MEDS: ARGININE/GLUTAMINE/CALCIUM BMB 1 EACH POWD.PACK GT SCH (16:28)
[2023-04-22] MEDS: PROSOURCE / PROSTAT (PYXIS) 30 ML UDC GT SCH (16:28)
[2023-04-22] MEDS: hydrALAZINE HCL 25 MG TABLET GT PRN (18:04)
[2023-04-22] MEDS: CALCIUM CARBONATE (1250) 500 MG TABLET GT SCH (21:49)
[2023-04-22] MEDS: ATORVASTATIN 40 MG TABLET GT SCH (21:49)
[2023-04-22] MEDS: QUETIAPINE FUMARATE 25 MG TABLET PO SCH (21:49)
[2023-04-23] VITALS (12 sets, daily range): BP systolic 133–176; BP diastolic 74–96; TEMP 89.9–99.7; O2SAT 97–100
[2023-04-23] MEDS: JEVITY 1.2 CAL 1,000 ML BOTTLE GT PRN ×2 (04:28→23:54)
[2023-04-23] MEDS: DAKINS QUARTER STRENGTH (0.125%) 480 ML BOTTLE TOP SCH (09:00)
[2023-04-23] MEDS: CADEXOMER IODINE 40 GM TUBE TP SCH ×2 (09:00→21:34)
[2023-04-23] MEDS: LEVOTHYROXINE SODIUM 75 MCG TABLET GT SCH (09:20)
[2023-04-23] MEDS: LEVETIRACETAM SOL (5 ML) 100 MG/ML UDC GT SCH ×2 (09:20→16:06)
[2023-04-23] MEDS: CHLORHEXIDINE GLUCONATE 15 ML UDC MM SCH (09:20)
[2023-04-23] MEDS: ARGININE/GLUTAMINE/CALCIUM BMB 1 EACH POWD.PACK GT SCH ×2 (09:21→16:05)
[2023-04-23] MEDS: QUETIAPINE FUMARATE 25 MG TABLET GT SCH (09:21)
[2023-04-23] MEDS: PROSOURCE / PROSTAT (PYXIS) 30 ML UDC GT SCH ×2 (09:21→16:05)
[2023-04-23] MEDS: ESCITALOPRAM OXALATE (10 MG) 10 MG TABLET GT SCH (09:21)
[2023-04-23] MEDS: DESMOPRESSIN ACETATE 0.1 MG TABLET GT SCH ×3 (09:21→23:59)
[2023-04-23] MEDS: POLYETHYLENE GLYCOL 3350 17 GM POWD.PACK GT SCH ×2 (09:21→16:06)
[2023-04-23] MEDS: FERROUS SULFATE (325 MG) 325 MG/TAB TABLET GT SCH (09:21)
[2023-04-23] MEDS: LACOSAMIDE 50 MG TABLET GT SCH ×2 (09:21→16:05)
[2023-04-23] MEDS: PANTOPRAZOLE 40 MG/PACK PACK GT SCH (09:21)
[2023-04-23] MEDS: hydrALAZINE HCL 25 MG TABLET GT PRN ×2 (11:37→21:33)
[2023-04-23 13:34] LABS: CREATININE 1.3 mg/dL (0.6-1.3); POTASSIUM 5.1 mmol/L (3.5-5.1)
[2023-04-23] MEDS: ATORVASTATIN 40 MG TABLET GT SCH (21:32)
[2023-04-23] MEDS: QUETIAPINE FUMARATE 25 MG TABLET PO SCH (21:33)
[2023-04-23] MEDS: CALCIUM CARBONATE (1250) 500 MG TABLET GT SCH (21:33)
[2023-04-23] MEDS ORDERED: DESMOPRESSIN ACETATE 0.1 MG TABLET ONE (23:58)
[2023-04-24] VITALS (13 sets, daily range): BP systolic 121–172; BP diastolic 66–93; TEMP 97.7–99; O2SAT 94–99
[2023-04-24 07:08] LABS: BASOPHILS % (AUTO) 0.4 % (0.0-2.0); EOSINOPHILS # (AUTO) 0.2 K/uL (0.0-0.7); HEMATOCRIT 29 % (39-51); HEMOGLOBIN 9.3 g/dL (13.5-17.5); LYMPHOCYTES # (AUTO) 1.1 K/uL (0.8-4.8); LYMPHOCYTES % (AUTO) 10.5 % (20.0-44.0); MEAN CORPUSCULAR HEMOGLOBIN 30 PG (26.0-33.0); MEAN CORPUSCULAR HGB CONC 32 g/dl (31.0-36.0); MEAN CORPUSCULAR VOLUME 93 fL (80-96); MONOCYTES # (AUTO) 0.6 K/uL (0.1-1.30); MONOCYTES % (AUTO) 5.9 % (2.0-12.0); NEUTROPHILS # (AUTO) 8.2 K/uL (1.8-8.9); NEUTROPHILS % (AUTO) 81.2 % (43.0-81.0); PLATELET COUNT (AUTO) 408 K/uL (150-450); RED BLOOD CELL COUNT(AUTO) 3.09 MIL/uL (4.5-6.0); RED CELL DISTRIBUTION WIDTH 15.1 % (11.5-15.0); WHITE BLOOD COUNT (AUTO) 10.1 K/uL (4.3-11.0)
[2023-04-24 07:18] LABS: CALCIUM, SERUM 10.4 mg/dL (8.5-10.1); CREATININE 1.2 mg/dL (0.6-1.3); MAGNESIUM 2.1 mg/dL (1.8-2.4); PHOSPHORUS 4.9 mg/dL (2.5-4.9); POTASSIUM 4.9 mmol/L (3.5-5.1)
[2023-04-24] MEDS: ACETAMINOPHEN 650 MG/20.3 ML UDC GT PRN (08:46)
[2023-04-24] MEDS: POLYETHYLENE GLYCOL 3350 17 GM POWD.PACK GT SCH ×2 (08:46→17:41)
[2023-04-24] MEDS: CHLORHEXIDINE GLUCONATE 15 ML UDC MM SCH (08:46)
[2023-04-24] MEDS: QUETIAPINE FUMARATE 25 MG TABLET GT SCH (08:47)
[2023-04-24] MEDS: LACOSAMIDE 50 MG TABLET GT SCH ×2 (08:47→17:42)
[2023-04-24] MEDS: FERROUS SULFATE (325 MG) 325 MG/TAB TABLET GT SCH (08:47)
[2023-04-24] MEDS: LEVOTHYROXINE SODIUM 75 MCG TABLET GT SCH (08:48)
[2023-04-24] MEDS: LEVETIRACETAM SOL (5 ML) 100 MG/ML UDC GT SCH ×2 (08:48→17:42)
[2023-04-24] MEDS: PANTOPRAZOLE 40 MG/PACK PACK GT SCH (08:48)
[2023-04-24] MEDS: ESCITALOPRAM OXALATE (10 MG) 10 MG TABLET GT SCH (08:49)
[2023-04-24] MEDS: ARGININE/GLUTAMINE/CALCIUM BMB 1 EACH POWD.PACK GT SCH ×2 (08:52→17:25)
[2023-04-24] MEDS: PROSOURCE / PROSTAT (PYXIS) 30 ML UDC GT SCH ×2 (08:53→17:24)
[2023-04-24] MEDS: DAKINS QUARTER STRENGTH (0.125%) 480 ML BOTTLE TOP SCH (09:28)
[2023-04-24] MEDS: CADEXOMER IODINE 40 GM TUBE TP SCH ×2 (09:28→20:05)
[2023-04-24] MEDS: DESMOPRESSIN ACETATE 0.1 MG TABLET GT SCH ×3 (09:42→17:43)
[2023-04-24] MEDS: IV D5W 1,000 ML IV SCH (18:22)
[2023-04-24] MEDS: QUETIAPINE FUMARATE 25 MG TABLET PO SCH (22:03)
[2023-04-24] MEDS: ATORVASTATIN 40 MG TABLET GT SCH (22:03)
[2023-04-24] MEDS: CALCIUM CARBONATE (1250) 500 MG TABLET GT SCH (22:03)
[2023-04-24] MEDS: JEVITY 1.2 CAL 1,000 ML BOTTLE GT PRN (23:43)
[2023-04-25] VITALS (12 sets, daily range): BP systolic 118–172; BP diastolic 69–93; TEMP 97.5–98.8; O2SAT 94–100
[2023-04-25] MEDS: IV D5W 1,000 ML IV SCH ×2 (05:14→17:19)
[2023-04-25 06:19] LABS: BASOPHILS # (AUTO) 0.1 K/uL (0.0-0.2); BASOPHILS % (AUTO) 0.6 % (0.0-2.0); EOSINOPHILS # (AUTO) 0.2 K/uL (0.0-0.7); EOSINOPHILS % (AUTO) 2.1 % (0.0-6.0); HEMATOCRIT 30 % (39-51); HEMOGLOBIN 9.3 g/dL (13.5-17.5); LYMPHOCYTES # (AUTO) 1.4 K/uL (0.8-4.8); LYMPHOCYTES % (AUTO) 11.8 % (20.0-44.0); MEAN CORPUSCULAR HEMOGLOBIN 30 PG (26.0-33.0); MEAN CORPUSCULAR HGB CONC 31 g/dl (31.0-36.0); MEAN CORPUSCULAR VOLUME 95 fL (80-96); MONOCYTES # (AUTO) 0.7 K/uL (0.1-1.30); MONOCYTES % (AUTO) 6.2 % (2.0-12.0); NEUTROPHILS # (AUTO) 9.1 K/uL (1.8-8.9); NEUTROPHILS % (AUTO) 79.3 % (43.0-81.0); PLATELET COUNT (AUTO) 354 K/uL (150-450); RED BLOOD CELL COUNT(AUTO) 3.15 MIL/uL (4.5-6.0); RED CELL DISTRIBUTION WIDTH 15.2 % (11.5-15.0); WHITE BLOOD COUNT (AUTO) 11.5 K/uL (4.3-11.0)
[2023-04-25 06:35] LABS: CALCIUM, SERUM 10.2 mg/dL (8.5-10.1); CREATININE 1.3 mg/dL (0.6-1.3); MAGNESIUM 2.2 mg/dL (1.8-2.4); PHOSPHORUS 3.6 mg/dL (2.5-4.9); POTASSIUM 4.4 mmol/L (3.5-5.1)
[2023-04-25] MEDS: DAKINS QUARTER STRENGTH (0.125%) 480 ML BOTTLE TOP SCH (08:07)
[2023-04-25] MEDS: PROSOURCE / PROSTAT (PYXIS) 30 ML UDC GT SCH ×2 (08:43→16:01)
[2023-04-25] MEDS: ARGININE/GLUTAMINE/CALCIUM BMB 1 EACH POWD.PACK GT SCH ×2 (08:43→16:01)
[2023-04-25] MEDS: DESMOPRESSIN ACETATE 0.1 MG TABLET GT SCH ×3 (08:47→16:17)
[2023-04-25] MEDS: PANTOPRAZOLE 40 MG/PACK PACK GT SCH (08:47)
[2023-04-25] MEDS: ESCITALOPRAM OXALATE (10 MG) 10 MG TABLET GT SCH (08:48)
[2023-04-25] MEDS: FERROUS SULFATE (325 MG) 325 MG/TAB TABLET GT SCH (08:48)
[2023-04-25] MEDS: POLYETHYLENE GLYCOL 3350 17 GM POWD.PACK GT SCH ×2 (08:49→16:01)
[2023-04-25] MEDS: CHLORHEXIDINE GLUCONATE 15 ML UDC MM SCH (08:49)
[2023-04-25] MEDS: LACOSAMIDE 50 MG TABLET GT SCH ×2 (08:49→16:15)
[2023-04-25] MEDS: LEVETIRACETAM SOL (5 ML) 100 MG/ML UDC GT SCH ×2 (08:49→16:15)
[2023-04-25] MEDS: QUETIAPINE FUMARATE 25 MG TABLET GT SCH (08:49)
[2023-04-25] MEDS: CADEXOMER IODINE 40 GM TUBE TP SCH ×2 (08:50→21:34)
[2023-04-25] MEDS: LEVOTHYROXINE SODIUM 75 MCG TABLET GT SCH (08:51)
[2023-04-25] MEDS: hydrALAZINE HCL 25 MG TABLET GT PRN (10:21)
[2023-04-25] MEDS: QUETIAPINE FUMARATE 25 MG TABLET PO SCH (21:33)
[2023-04-25] MEDS: ATORVASTATIN 40 MG TABLET GT SCH (21:34)
[2023-04-25] MEDS: JEVITY 1.2 CAL 1,000 ML BOTTLE GT PRN (23:37)
[2023-04-26] VITALS (9 sets, daily range): BP systolic 108–142; BP diastolic 56–86; TEMP 98.2–99.3; O2SAT 94–100
[2023-04-26] MEDS: IV D5W 1,000 ML IV SCH (05:26)
[2023-04-26 08:48] LABS: BASOPHILS % (AUTO) 0.5 % (0.0-2.0); EOSINOPHILS # (AUTO) 0.2 K/uL (0.0-0.7); EOSINOPHILS % (AUTO) 2.1 % (0.0-6.0); HEMATOCRIT 26 % (39-51); HEMOGLOBIN 8.3 g/dL (13.5-17.5); LYMPHOCYTES % (AUTO) 9.9 % (20.0-44.0); MEAN CORPUSCULAR HEMOGLOBIN 30 PG (26.0-33.0); MEAN CORPUSCULAR HGB CONC 32 g/dl (31.0-36.0); MEAN CORPUSCULAR VOLUME 94 fL (80-96); MONOCYTES # (AUTO) 0.6 K/uL (0.1-1.30); MONOCYTES % (AUTO) 6.7 % (2.0-12.0); NEUTROPHILS # (AUTO) 7.8 K/uL (1.8-8.9); NEUTROPHILS % (AUTO) 80.8 % (43.0-81.0); PLATELET COUNT (AUTO) 284 K/uL (150-450); RED BLOOD CELL COUNT(AUTO) 2.75 MIL/uL (4.5-6.0); WHITE BLOOD COUNT (AUTO) 9.7 K/uL (4.3-11.0)
[2023-04-26] MEDS: CADEXOMER IODINE 40 GM TUBE TP SCH ×2 (09:00→21:44)
[2023-04-26] MEDS: DAKINS QUARTER STRENGTH (0.125%) 480 ML BOTTLE TOP SCH (09:00)
[2023-04-26] MEDS: ARGININE/GLUTAMINE/CALCIUM BMB 1 EACH POWD.PACK GT SCH ×2 (09:00→17:34)
[2023-04-26] MEDS: POLYETHYLENE GLYCOL 3350 17 GM POWD.PACK GT SCH ×2 (09:00→17:31)
[2023-04-26 09:30] LABS: CALCIUM, SERUM 9.6 mg/dL (8.5-10.1); CREATININE 1.3 mg/dL (0.6-1.3); MAGNESIUM 2.3 mg/dL (1.8-2.4); PHOSPHORUS 3.3 mg/dL (2.5-4.9); POTASSIUM 4.4 mmol/L (3.5-5.1)
[2023-04-26] MEDS ORDERED: CEFTRIAXONE 1 G in IV D5W 50 ML IV SCH (10:00)
[2023-04-26] MEDS: LEVETIRACETAM SOL (5 ML) 100 MG/ML UDC GT SCH ×2 (10:06→17:33)
[2023-04-26] MEDS: LEVOTHYROXINE SODIUM 75 MCG TABLET GT SCH (10:07)
[2023-04-26] MEDS: ESCITALOPRAM OXALATE (10 MG) 10 MG TABLET GT SCH (10:07)
[2023-04-26] MEDS: CHLORHEXIDINE GLUCONATE 15 ML UDC MM SCH (10:07)
[2023-04-26] MEDS: FERROUS SULFATE (325 MG) 325 MG/TAB TABLET GT SCH (10:07)
[2023-04-26] MEDS: PROSOURCE / PROSTAT (PYXIS) 30 ML UDC GT SCH ×2 (10:09→17:34)
[2023-04-26] MEDS: PANTOPRAZOLE 40 MG/PACK PACK GT SCH (10:14)
[2023-04-26] MEDS: QUETIAPINE FUMARATE 25 MG TABLET GT SCH (10:14)
[2023-04-26] MEDS: LACOSAMIDE 50 MG TABLET GT SCH ×2 (10:15→17:33)
[2023-04-26] MEDS: DESMOPRESSIN ACETATE 0.1 MG TABLET GT SCH ×3 (10:16→17:35)
[2023-04-26] MEDS: JEVITY 1.2 CAL 1,000 ML BOTTLE GT PRN (11:45)
[2023-04-26] MEDS: MEROPENEM 1 G in IV NS 0.9% 100 ML IV SCH ×2 (13:31→21:40)
[2023-04-26] MEDS: IV D5W 1,000 ML IV PRN (18:26)
[2023-04-26] MEDS: QUETIAPINE FUMARATE 25 MG TABLET PO SCH (22:08)
[2023-04-26] MEDS: ATORVASTATIN 40 MG TABLET GT SCH (22:08)
[2023-04-27] VITALS (7 sets, daily range): BP systolic 133–143; BP diastolic 73–74; TEMP 98.9–99.5; O2SAT 97–98
[2023-04-27] MEDS: MEROPENEM 1 G in IV NS 0.9% 100 ML IV SCH ×3 (05:44→21:26)
[2023-04-27] MEDS: ACETAMINOPHEN 650 MG/20.3 ML UDC GT PRN (05:44)
[2023-04-27] MEDS: LORAZEPAM INJ 2 MG/ML VIAL IV PRN ×2 (05:52→06:06)
[2023-04-27] MEDS: JEVITY 1.2 CAL 1,000 ML BOTTLE GT PRN ×2 (06:07→17:43)
[2023-04-27 06:26] LABS: BASOPHILS # (AUTO) 0.1 K/uL (0.0-0.2); BASOPHILS % (AUTO) 0.6 % (0.0-2.0); EOSINOPHILS # (AUTO) 0.2 K/uL (0.0-0.7); EOSINOPHILS % (AUTO) 2.6 % (0.0-6.0); HEMATOCRIT 26 % (39-51); HEMOGLOBIN 8.4 g/dL (13.5-17.5); LYMPHOCYTES # (AUTO) 1.5 K/uL (0.8-4.8); LYMPHOCYTES % (AUTO) 17.2 % (20.0-44.0); MEAN CORPUSCULAR HEMOGLOBIN 30 PG (26.0-33.0); MEAN CORPUSCULAR HGB CONC 33 g/dl (31.0-36.0); MEAN CORPUSCULAR VOLUME 92 fL (80-96); MONOCYTES # (AUTO) 0.7 K/uL (0.1-1.30); NEUTROPHILS # (AUTO) 6.3 K/uL (1.8-8.9); NEUTROPHILS % (AUTO) 71.6 % (43.0-81.0); PLATELET COUNT (AUTO) 314 K/uL (150-450); RED BLOOD CELL COUNT(AUTO) 2.78 MIL/uL (4.5-6.0); RED CELL DISTRIBUTION WIDTH 14.9 % (11.5-15.0); WHITE BLOOD COUNT (AUTO) 8.7 K/uL (4.3-11.0)
[2023-04-27 06:49] LABS: CALCIUM, SERUM 9.9 mg/dL (8.5-10.1); CREATININE 1.4 mg/dL (0.6-1.3); MAGNESIUM 2.2 mg/dL (1.8-2.4); PHOSPHORUS 3.5 mg/dL (2.5-4.9); POTASSIUM 3.9 mmol/L (3.5-5.1)
[2023-04-27] MEDS ORDERED: MERO1VIA23 IV (08:48)
[2023-04-27] MEDS: ARGININE/GLUTAMINE/CALCIUM BMB 1 EACH POWD.PACK GT SCH ×2 (09:00→17:26)
[2023-04-27] MEDS: PROSOURCE / PROSTAT (PYXIS) 30 ML UDC GT SCH ×2 (09:55→17:26)
[2023-04-27] MEDS: DESMOPRESSIN ACETATE 0.1 MG TABLET GT SCH ×3 (09:55→17:25)
[2023-04-27] MEDS: PANTOPRAZOLE 40 MG/PACK PACK GT SCH (09:55)
[2023-04-27] MEDS: LACOSAMIDE 50 MG TABLET GT SCH ×2 (09:55→17:33)
[2023-04-27] MEDS: CHLORHEXIDINE GLUCONATE 15 ML UDC MM SCH (09:56)
[2023-04-27] MEDS: QUETIAPINE FUMARATE 25 MG TABLET GT SCH (09:56)
[2023-04-27] MEDS: POLYETHYLENE GLYCOL 3350 17 GM POWD.PACK GT SCH ×2 (09:56→17:25)
[2023-04-27] MEDS: LEVOTHYROXINE SODIUM 75 MCG TABLET GT SCH (09:57)
[2023-04-27] MEDS: LEVETIRACETAM SOL (5 ML) 100 MG/ML UDC GT SCH ×2 (09:57→17:25)
[2023-04-27] MEDS: ESCITALOPRAM OXALATE (10 MG) 10 MG TABLET GT SCH (09:57)
[2023-04-27] MEDS: FERROUS SULFATE (325 MG) 325 MG/TAB TABLET GT SCH (09:58)
[2023-04-27] MEDS: CADEXOMER IODINE 40 GM TUBE TP SCH ×2 (09:59→21:40)
[2023-04-27] MEDS: DAKINS QUARTER STRENGTH (0.125%) 480 ML BOTTLE TOP SCH (10:00)
[2023-04-27] MEDS: IV D5W 1,000 ML IV PRN (11:35)
[2023-04-27] MEDS: ATORVASTATIN 40 MG TABLET GT SCH (21:40)
[2023-04-27] MEDS: QUETIAPINE FUMARATE 25 MG TABLET PO SCH (21:40)
[2023-04-28] VITALS (11 sets, daily range): BP systolic 125–135; BP diastolic 69–80; TEMP 98.7–99.7; O2SAT 94–100
[2023-04-28] MEDS: IV D5W 1,000 ML IV PRN (04:19)
[2023-04-28] MEDS: MEROPENEM 1 G in IV NS 0.9% 100 ML IV SCH ×3 (04:24→20:37)
[2023-04-28] MEDS: ACETAMINOPHEN 650 MG/20.3 ML UDC GT PRN ×2 (05:09→05:10)
[2023-04-28] MEDS: ARGININE/GLUTAMINE/CALCIUM BMB 1 EACH POWD.PACK GT SCH ×2 (09:33→17:10)
[2023-04-28] MEDS: LEVETIRACETAM SOL (5 ML) 100 MG/ML UDC GT SCH ×2 (09:33→17:11)
[2023-04-28] MEDS: CHLORHEXIDINE GLUCONATE 15 ML UDC MM SCH (09:33)
[2023-04-28] MEDS: PROSOURCE / PROSTAT (PYXIS) 30 ML UDC GT SCH ×2 (09:34→17:11)
[2023-04-28] MEDS: POLYETHYLENE GLYCOL 3350 17 GM POWD.PACK GT SCH ×2 (09:34→17:00)
[2023-04-28] MEDS: FERROUS SULFATE (325 MG) 325 MG/TAB TABLET GT SCH (09:34)
[2023-04-28] MEDS: LACOSAMIDE 50 MG TABLET GT SCH ×2 (09:34→17:11)
[2023-04-28] MEDS: PANTOPRAZOLE 40 MG/PACK PACK GT SCH (09:34)
[2023-04-28] MEDS: QUETIAPINE FUMARATE 25 MG TABLET GT SCH (09:34)
[2023-04-28] MEDS: ESCITALOPRAM OXALATE (10 MG) 10 MG TABLET GT SCH (09:34)
[2023-04-28] MEDS: LEVOTHYROXINE SODIUM 75 MCG TABLET GT SCH (09:34)
[2023-04-28] MEDS: DAKINS QUARTER STRENGTH (0.125%) 480 ML BOTTLE TOP SCH (09:35)
[2023-04-28] MEDS: CADEXOMER IODINE 40 GM TUBE TP SCH ×2 (09:36→21:53)
[2023-04-28] MEDS: DESMOPRESSIN ACETATE 0.1 MG TABLET GT SCH ×2 (09:38→17:14)
[2023-04-28] MEDS: JEVITY 1.2 CAL 1,000 ML BOTTLE GT PRN (10:30)
[2023-04-28] MEDS: ATORVASTATIN 40 MG TABLET GT SCH (21:53)
[2023-04-28] MEDS: QUETIAPINE FUMARATE 25 MG TABLET PO SCH (21:54)
[2023-04-29] VITALS (8 sets, daily range): BP systolic 136–152; BP diastolic 72–87; TEMP 98.1–100.4; O2SAT 95–98
[2023-04-29] MEDS: JEVITY 1.2 CAL 1,000 ML BOTTLE GT PRN ×2 (04:12→20:27)
[2023-04-29] MEDS: MEROPENEM 1 G in IV NS 0.9% 100 ML IV SCH ×3 (05:06→20:07)
[2023-04-29 06:28] LABS: BASOPHILS % (AUTO) 0.3 % (0.0-2.0); EOSINOPHILS # (AUTO) 0.1 K/uL (0.0-0.7); EOSINOPHILS % (AUTO) 0.4 % (0.0-6.0); HEMATOCRIT 27 % (39-51); HEMOGLOBIN 8.7 g/dL (13.5-17.5); LYMPHOCYTES # (AUTO) 1.2 K/uL (0.8-4.8); LYMPHOCYTES % (AUTO) 9.6 % (20.0-44.0); MEAN CORPUSCULAR HEMOGLOBIN 30 PG (26.0-33.0); MEAN CORPUSCULAR HGB CONC 32 g/dl (31.0-36.0); MEAN CORPUSCULAR VOLUME 94 fL (80-96); MONOCYTES # (AUTO) 1.5 K/uL (0.1-1.30); MONOCYTES % (AUTO) 11.9 % (2.0-12.0); NEUTROPHILS # (AUTO) 9.5 K/uL (1.8-8.9); NEUTROPHILS % (AUTO) 77.8 % (43.0-81.0); PLATELET COUNT (AUTO) 255 K/uL (150-450); RED BLOOD CELL COUNT(AUTO) 2.89 MIL/uL (4.5-6.0); RED CELL DISTRIBUTION WIDTH 14.9 % (11.5-15.0); WHITE BLOOD COUNT (AUTO) 12.2 K/uL (4.3-11.0)
[2023-04-29 06:29] LABS: CALCIUM, SERUM 9.6 mg/dL (8.5-10.1); CREATININE 1.4 mg/dL (0.6-1.3); MAGNESIUM 2.2 mg/dL (1.8-2.4); PHOSPHORUS 3.3 mg/dL (2.5-4.9); POTASSIUM 4.1 mmol/L (3.5-5.1)
[2023-04-29] MEDS: ESCITALOPRAM OXALATE (10 MG) 10 MG TABLET GT SCH (09:06)
[2023-04-29] MEDS: LEVETIRACETAM SOL (5 ML) 100 MG/ML UDC GT SCH ×2 (09:06→18:29)
[2023-04-29] MEDS: LACOSAMIDE 50 MG TABLET GT SCH ×2 (09:06→18:28)
[2023-04-29] MEDS: CHLORHEXIDINE GLUCONATE 15 ML UDC MM SCH (09:06)
[2023-04-29] MEDS: POLYETHYLENE GLYCOL 3350 17 GM POWD.PACK GT SCH ×2 (09:07→18:28)
[2023-04-29] MEDS: LEVOTHYROXINE SODIUM 75 MCG TABLET GT SCH (09:07)
[2023-04-29] MEDS: QUETIAPINE FUMARATE 25 MG TABLET GT SCH (09:07)
[2023-04-29] MEDS: FERROUS SULFATE (325 MG) 325 MG/TAB TABLET GT SCH (09:07)
[2023-04-29] MEDS: PANTOPRAZOLE 40 MG/PACK PACK GT SCH (09:08)
[2023-04-29] MEDS: CADEXOMER IODINE 40 GM TUBE TP SCH ×2 (09:09→20:17)
[2023-04-29] MEDS: DAKINS QUARTER STRENGTH (0.125%) 480 ML BOTTLE TOP SCH (09:09)
[2023-04-29] MEDS: DESMOPRESSIN ACETATE 0.1 MG TABLET GT SCH ×2 (09:10→18:33)
[2023-04-29] MEDS: PROSOURCE / PROSTAT (PYXIS) 30 ML UDC GT SCH ×2 (09:13→18:29)
[2023-04-29] MEDS: ARGININE/GLUTAMINE/CALCIUM BMB 1 EACH POWD.PACK GT SCH ×2 (09:13→17:00)
[2023-04-29] MEDS: ATORVASTATIN 40 MG TABLET GT SCH (21:34)
[2023-04-29] MEDS: QUETIAPINE FUMARATE 25 MG TABLET PO SCH (21:35)
[2023-04-30] VITALS (7 sets, daily range): BP systolic 135–146; BP diastolic 56–73; TEMP 98.1; O2SAT 96–99
[2023-04-30] MEDS: MEROPENEM 1 G in IV NS 0.9% 100 ML IV SCH ×2 (04:02→14:10)
[2023-04-30 06:20] LABS: BASOPHILS % (AUTO) 0.3 % (0.0-2.0); EOSINOPHILS # (AUTO) 0.1 K/uL (0.0-0.7); EOSINOPHILS % (AUTO) 1.2 % (0.0-6.0); HEMATOCRIT 28 % (39-51); HEMOGLOBIN 8.8 g/dL (13.5-17.5); LYMPHOCYTES # (AUTO) 1.1 K/uL (0.8-4.8); LYMPHOCYTES % (AUTO) 10.1 % (20.0-44.0); MEAN CORPUSCULAR HEMOGLOBIN 30 PG (26.0-33.0); MEAN CORPUSCULAR HGB CONC 32 g/dl (31.0-36.0); MEAN CORPUSCULAR VOLUME 94 fL (80-96); MONOCYTES # (AUTO) 1.1 K/uL (0.1-1.30); MONOCYTES % (AUTO) 9.8 % (2.0-12.0); NEUTROPHILS # (AUTO) 8.7 K/uL (1.8-8.9); NEUTROPHILS % (AUTO) 78.6 % (43.0-81.0); PLATELET COUNT (AUTO) 301 K/uL (150-450); RED BLOOD CELL COUNT(AUTO) 2.95 MIL/uL (4.5-6.0); RED CELL DISTRIBUTION WIDTH 15.1 % (11.5-15.0); WHITE BLOOD COUNT (AUTO) 11.1 K/uL (4.3-11.0)
[2023-04-30 06:37] LABS: CALCIUM, SERUM 9.9 mg/dL (8.5-10.1); CREATININE 1.3 mg/dL (0.6-1.3); POTASSIUM 4.3 mmol/L (3.5-5.1)
[2023-04-30] MEDS: CADEXOMER IODINE 40 GM TUBE TP SCH (09:28)
[2023-04-30] MEDS: DAKINS QUARTER STRENGTH (0.125%) 480 ML BOTTLE TOP SCH (09:28)
[2023-04-30] MEDS: DESMOPRESSIN ACETATE 0.1 MG TABLET GT SCH ×3 (09:28→16:40)
[2023-04-30] MEDS: POLYETHYLENE GLYCOL 3350 17 GM POWD.PACK GT SCH ×2 (09:29→16:39)
[2023-04-30] MEDS: PROSOURCE / PROSTAT (PYXIS) 30 ML UDC GT SCH ×2 (09:29→16:41)
[2023-04-30] MEDS: ARGININE/GLUTAMINE/CALCIUM BMB 1 EACH POWD.PACK GT SCH ×2 (09:29→16:40)
[2023-04-30] MEDS: PANTOPRAZOLE 40 MG/PACK PACK GT SCH (09:30)
[2023-04-30] MEDS: CHLORHEXIDINE GLUCONATE 15 ML UDC MM SCH (09:30)
[2023-04-30] MEDS: LEVETIRACETAM SOL (5 ML) 100 MG/ML UDC GT SCH ×2 (09:30→16:39)
[2023-04-30] MEDS: ESCITALOPRAM OXALATE (10 MG) 10 MG TABLET GT SCH (09:30)
[2023-04-30] MEDS: QUETIAPINE FUMARATE 25 MG TABLET GT SCH (09:30)
[2023-04-30] MEDS: LEVOTHYROXINE SODIUM 75 MCG TABLET GT SCH (09:31)
[2023-04-30] MEDS: FERROUS SULFATE (325 MG) 325 MG/TAB TABLET GT SCH (09:31)
[2023-04-30] MEDS: LACOSAMIDE 50 MG TABLET GT SCH ×2 (09:31→16:39)
[2023-04-30] MEDS: JEVITY 1.2 CAL 1,000 ML BOTTLE GT PRN (12:28)
== END 2023-04-30 19:30 | DRG 166 ==
LOC: ER 17:25 → TELE-TD 22:17 → TELE1 04-21 15:06 → MEDSG1 04-25 15:38 → MED 04-28 03:41
PROVIDERS: ATTEND Internal Medicine
PROC: 30233N1 Transfusion of Nonautologous Red Blood Cells into Peripheral Vein, Percutaneous Approach (ICD-10-PCS; 2023-04-17)
PROC: 0JBQ0ZZ Excision of Right Foot Subcutaneous Tissue and Fascia, Open Approach (ICD-10-PCS; principal; 2023-04-19)
PROC: 05HC33Z Insertion of Infusion Device into Left Basilic Vein, Percutaneous Approach (ICD-10-PCS; 2023-04-21)
PROC: 05HB33Z Insertion of Infusion Device into Right Basilic Vein, Percutaneous Approach (ICD-10-PCS; 2023-04-30)
DX: J95.01 Hemorrhage from tracheostomy stoma (principal); E43 Unspecified severe protein-calorie malnutrition; L89.613 Pressure ulcer of right heel, stage 3; L89.893 Pressure ulcer of other site, stage 3; N17.0 Acute kidney failure with tubular necrosis; T83.511A Infection and inflammatory reaction due to indwelling urethral catheter, initial encounter; F73 Profound intellectual disabilities; J96.10 Chronic respiratory failure, unspecified whether with hypoxia or hypercapnia; G93.49 Other encephalopathy; G11.4 Hereditary spastic paraplegia; J98.11 Atelectasis; D62 Acute posthemorrhagic anemia; E23.2 Diabetes insipidus; N39.0 Urinary tract infection, site not specified; Y84.8 Other medical procedures as the cause of abnormal reaction of the patient, or of later complication, without mention of misadventure at the time of the procedure; Y84.6 Urinary catheterization as the cause of abnormal reaction of the patient, or of later complication, without mention of misadventure at the time of the procedure; Y92.129 Unspecified place in nursing home as the place of occurrence of the external cause; Z20.822 Contact with and (suspected) exposure to COVID-19; K29.70 Gastritis, unspecified, without bleeding; M19.90 Unspecified osteoarthritis, unspecified site; E03.9 Hypothyroidism, unspecified; Z88.1 Allergy status to other antibiotic agents; Z79.82 Long term (current) use of aspirin; Z79.51 Long term (current) use of inhaled steroids; Z79.899 Other long term (current) drug therapy; Z79.02 Long term (current) use of antithrombotics/antiplatelets; N18.9 Chronic kidney disease, unspecified; M24.561 Contracture, right knee; M24.562 Contracture, left knee; R13.10 Dysphagia, unspecified; N31.9 Neuromuscular dysfunction of bladder, unspecified; E88.09 Other disorders of plasma-protein metabolism, not elsewhere classified; Z68.27 Body mass index [BMI] 27.0-27.9, adult; E11.22 Type 2 diabetes mellitus with diabetic chronic kidney disease; E83.52 Hypercalcemia; G40.909 Epilepsy, unspecified, not intractable, without status epilepticus; J40 Bronchitis, not specified as acute or chronic; G31.84 Mild cognitive impairment of uncertain or unknown etiology; L89.520 Pressure ulcer of left ankle, unstageable; B96.1 Klebsiella pneumoniae [K. pneumoniae] as the cause of diseases classified elsewhere; B96.89 Other specified bacterial agents as the cause of diseases classified elsewhere
CPT/HCPCS: 31720; 36410; 36415; 71045-TC; 71260-TC; 80048-TC; 80076-TC; 81001; 83540-TC; 83605-TC; 83735-TC; 83880; 84100-TC; 84484-TC; 85025-TC; 85730-TC; 86850-TC; 87040-TC; 87081-TC; 87086-TC; 94640-TC; 94664-TC; 94760-TC; 94799-TC; 97110-TC; 97530-TC; 99082-TC; A4223; A4623; A6253; A6403; A6407; G0378; J1953; J2060; J2185; J2543; J3480; J3490; J7030; J7040; J7042; J7050; J7060; J7070; J7120; P9016; Q9967